=== PATIENT | male | born 1960 | race Caucasian/White ===

== ENCOUNTER 2016-09-19 17:08 | Emergency (ER) | payer MEDICAID ==
[2016-09-19 17:21] VITALS: BP 179/114
--- NOTE | 2016-09-19 17:51 | EDM.PDOC ---
ED HPI GENERAL MEDICAL PROBLEM - General Chief Complaint: ENT Problem Stated Complaint: SINUS INFECTION Time Seen by Provider: 09/19/16 17:41 - History of Present Illness INITIAL COMMENTS - FREE TEXT/NARRATIVE: History of present illness: [56-year-old male presenting with complaints of sinus infection. Patient states he is a chronic issue of sinus infections and he feels that he is beginning to have one involved] Review of systems: As per history of present illness and below otherwise all systems reviewed and negative. Past medical history: As per history of present illness and as reviewed below otherwise noncontributory. Surgical history: As per history of present illness and as reviewed below otherwise noncontributory. Social history: No reported history of drug or alcohol abuse. Family history: As per history of present illness and as reviewed below otherwise noncontributory. Physical exam: HEENT: Atraumatic, normocephalic, pupils reactive, negative for conjunctival pallor or scleral icterus, mucous membranes moist, point tenderness at frontal and maxillary sinuses, throat clear, neck supple, nontender, trachea midline. Lungs: Clear to auscultation, breath sounds equal bilaterally, chest nontender. Heart: S1S2, regular, negative for clicks, rubs, or JVD. Abdomen: Soft, nondistended, nontender. Negative for masses or hepatosplenomegaly. Negative for costovertebral tenderness. Pelvis: Stable nontender. Genitourinary: Deferred. Rectal: Deferred. Extremities: Atraumatic, negative for cords or calf pain. Neurovascular unremarkable. Neuro: Awake, alert, oriented. Cranial nerves II through XII unremarkable. Cerebellum unremarkable. Motor and sensory unremarkable throughout. Exam nonfocal. Global assessment, benign save subjective complaint as noted above as well as some statements of discolored mucus discharge Diagnostics: [] Therapeutics: [] Impression: [Sinus infection] Plan: [Antibiotic] Definitive disposition and diagnosis as appropriate pending reevaluation and review of above. Headache Pain Score (Numeric/FACES): 5 - Related Data Allergies Allergy/AdvReac Type Severity Reaction Status Date / Time No Known Allergies Allergy Verified 09/19/16 17:21 Home Meds: Home Meds Omeprazole Magnesium [Prilosec Otc] 20 mg PO DAILY 09/19/16 [History] Past Medical History - Past Health History Medical/Surgical History: Denies Medical/Surgical History HEENT History: Reports: None Cardiovascular History: Reports: Hypertension Respiratory History: Reports: None Gastrointestinal History: Reports: GERD Other Gastrointestinal History: hernia ( patient refuse to elaborate ) Genitourinary History: Reports: None Musculoskeletal History: Reports: None Neurological History: Reports: Seizure Psychiatric History: Reports: Suicidal Ideation Endocrine/Metabolic History: Reports: None Hematologic History: Reports: None Immunologic History: Reports: None Oncologic (Cancer) History: Reports: None Dermatologic History: Reports: None - Infectious Disease History Infectious Disease History: Reports: Chicken Pox - Past Surgical History Head Surgeries/Procedures: Reports: None HEENT Surgical History: Reports: None Cardiovascular Surgical History: Reports: None Respiratory Surgical History: Reports: None Male Surgical History: Reports: None Neurological Surgical History: Reports: None Musculoskeletal Surgical History: Reports: None Oncologic Surgical History: Reports: None Dermatological Surgical History: Reports: None Social & Family History - Family History Family Medical History: Noncontributory - Tobacco Use Smoking Status *Q: Current Every Day Smoker Years of Tobacco use: 30 Packs/Tins Daily: 1 Second Hand Smoke Exposure: No - Caffeine Use Caffeine Use: Reports: None - Alcohol Use Days Per Week of Alcohol Use: 1 Number of Drinks Per Day: 2 Total Drinks Per Week: 2 - Recreational Drug Use Recreational Drug Use: No ED ROS ENT - Review of Systems Review Of Systems: See Below (History of present illness) ED EXAM, ENT - Physical Exam Exam: See Below (History of present illness) Course - Vital Signs Last Recorded V/S: Last Vital Signs Temp 37.1 C 09/19/16 17:16 Pulse 83 09/19/16 17:16 Resp 18 09/19/16 17:16 BP 179/114 H 09/19/16 17:16 Pulse Ox 97 09/19/16 17:16 Departure - Departure Time of Disposition: 17:56 Disposition: Home, Self-Care 01 Condition: good Clinical Impression: Sinusitis - Discharge Information Forms: ED Department Discharge Additional Instructions: The following information is given to patients seen in the emergency department who are being discharged to home. This information is to outline your options for follow-up care. We provide all patients seen in our emergency department with a follow-up referral. The need for follow-up, as well as the timing and circumstances, are variable depending upon the specifics of your emergency department visit. If you don't have a primary care physician on staff, we will provide you with a referral. We always advise you to contact your personal physician following an emergency department visit to inform them of the circumstance of the visit and for follow-up with them and/or the need for any referrals to a consulting specialist. The emergency department will also refer you to a specialist when appropriate. This referral assures that you have the opportunity for follow-up care with a specialist. All of these measure are taken in an effort to provide you with optimal care, which includes your follow-up. Under all circumstances we always encourage you to contact your private physician who remains a resource for coordinating your care. When calling for follow-up care, please make the office aware that this follow-up is from your recent emergency room visit. If for any reason you are refused follow-up, please contact the [facility] Emergency Department at and asked to speak to the emergency department charge nurse. Take medication as directed Followup with PCP in one to 2 days Return to ED as needed as
== END 2016-09-19 18:07 | disposition home or self-care (01) ==
LOC: MW.ED 17:08
DX: J32.9 Chronic sinusitis, unspecified (principal); I10 Essential (primary) hypertension; K21.9 Gastro-esophageal reflux disease without esophagitis; F17.210 Nicotine dependence, cigarettes, uncomplicated
CPT/HCPCS: 99282; 99283

== ENCOUNTER 2016-10-25 19:07 | Emergency (ER) | payer MEDICAID ==
--- NOTE | 2016-10-25 19:46 | EDM.PDOC ---
ED HPI GENERAL MEDICAL PROBLEM - General Chief Complaint: Behavioral/Psych Stated Complaint: MENTAL ISSUES Time Seen by Provider: 10/25/16 19:40 - History of Present Illness INITIAL COMMENTS - FREE TEXT/NARRATIVE: HISTORY AND PHYSICAL: History of present illness: Patient 36-year-old male with a history of grief reaction depressive episodes and presents here after having called police regarding him feeling depressed and transported patient had expressed suicidal ideations without plan patient states that that is not the case and he has no intention of suicide he states he was feeling depressed and anxious with wanted to just talk to somebody. Is not interested in any inpatient therapy and remains adamant that he does not hurt himself or anybody else. He states he has other responsibilities including taking care of property andtenants Review of systems: As per history of present illness and below otherwise all systems reviewed and negative. Past medical history: As per history of present illness and as reviewed below otherwise noncontributory. Surgical history: As per history of present illness and as reviewed below otherwise noncontributory. Social history: No reported history of drug or alcohol abuse. Family history: As per history of present illness and as reviewed below otherwise noncontributory. Physical exam: HEENT: Atraumatic, normocephalic, pupils reactive, negative for conjunctival pallor or scleral icterus, mucous membranes moist, throat clear, neck supple, nontender, trachea midline. Lungs: Clear to auscultation, breath sounds equal bilaterally, chest nontender. Heart: S1S2, regular, negative for clicks, rubs, or JVD. Abdomen: Soft, nondistended, nontender. Negative for masses or hepatosplenomegaly. Negative for costovertebral tenderness. Pelvis: Stable nontender. Genitourinary: Deferred. Rectal: Deferred. Extremities: Atraumatic, negative for cords or calf pain. Neurovascular unremarkable. Neuro: Awake, alert, oriented. Cranial nerves II through XII unremarkable. Cerebellum unremarkable. Motor and sensory unremarkable throughout. Exam nonfocal. Diagnostics: None Therapeutics: None Impression: #1 depressive episode Definitive disposition and diagnosis as appropriate pending reevaluation and review of above. Right Lower Abdomen Pain Score (Numeric/FACES): 8 - Related Data Allergies Allergy/AdvReac Type Severity Reaction Status Date / Time dust Allergy Sneezing Uncoded 10/25/16 19:32 Home Meds: Home Meds Omeprazole Magnesium [Prilosec Otc] 20 mg PO DAILY 09/19/16 [History] Past Medical History - Past Health History Medical/Surgical History: Denies Medical/Surgical History HEENT History: Reports: None Cardiovascular History: Reports: Hypertension Respiratory History: Reports: None Gastrointestinal History: Reports: GERD Other Gastrointestinal History: hernia Genitourinary History: Reports: None Musculoskeletal History: Reports: None Neurological History: Reports: Seizure Psychiatric History: Reports: Suicidal Ideation Endocrine/Metabolic History: Reports: None Hematologic History: Reports: None Immunologic History: Reports: None Oncologic (Cancer) History: Reports: None Dermatologic History: Reports: None - Infectious Disease History Infectious Disease History: Reports: Chicken Pox - Past Surgical History Head Surgeries/Procedures: Reports: None HEENT Surgical History: Reports: None Cardiovascular Surgical History: Reports: None Respiratory Surgical History: Reports: None GI Surgical History: Reports: None Male Surgical History: Reports: None Neurological Surgical History: Reports: None Musculoskeletal Surgical History: Reports: None Oncologic Surgical History: Reports: None Dermatological Surgical History: Reports: None Social & Family History - Family History Family Medical History: Noncontributory - Tobacco Use Smoking Status *Q: Current Every Day Smoker Years of Tobacco use: 30 Packs/Tins Daily: 1 Second Hand Smoke Exposure: No - Caffeine Use Caffeine Use: Reports: Energy Drinks, Soda Caffeine Use Comment: 1 drink each/day - Alcohol Use Days Per Week of Alcohol Use: 3 Number of Drinks Per Day: 2 Total Drinks Per Week: 6 - Recreational Drug Use Recreational Drug Use: No ED ROS GENERAL - Review of Systems Review Of Systems: ROS reveals no pertinent complaints other than HPI. ED EXAM, GENERAL - Physical Exam Exam: See Below (See dictation) Course - Vital Signs Last Recorded V/S: Last Vital Signs Temp 36.8 C 10/25/16 19:27 Pulse 126 H 10/25/16 19:27 Resp 20 10/25/16 19:27 BP Pulse Ox 93 L 10/25/16 19:27 Departure - Departure Time of Disposition: 19:45 Disposition: Home, Self-Care 01 Condition: Good Clinical Impression: Depressive episode - Discharge Information Forms: ED Department Discharge Additional Instructions: The following information is given to patients seen in the emergency department who are being discharged to home. This information is to outline your options for follow-up care. We provide all patients seen in our emergency department with a follow-up referral. The need for follow-up, as well as the timing and circumstances, are variable depending upon the specifics of your emergency department visit. If you don't have a primary care physician on staff, we will provide you with a referral. We always advise you to contact your personal physician following an emergency department visit to inform them of the circumstance of the visit and for follow-up with them and/or the need for any referrals to a consulting specialist. The emergency department will also refer you to a specialist when appropriate. This referral assures that you have the opportunity for followup care with a specialist. All of these measure are taken in an effort to provide you with optimal care, which includes your followup. Under all circumstances we always encourage you to contact your private physician who remains a resource for coordinating your care. When calling for followup care, please make the office aware that this follow-up is from your recent emergency room visit. If for any reason you are refused follow-up, please contact the [facility] emergency department at and asked to speak to the emergency department charge nurse. Follow-up primary medical doctor wanted today's return as needed as discussed
[2016-10-25 21:08] VITALS: BP 139/86
== END 2016-10-25 20:00 | disposition home or self-care (01) ==
LOC: MW.ED 19:07
DX: F32.9 Major depressive disorder, single episode, unspecified (principal); I10 Essential (primary) hypertension; K21.9 Gastro-esophageal reflux disease without esophagitis; F17.210 Nicotine dependence, cigarettes, uncomplicated; Z79.899 Other long term (current) drug therapy
CPT/HCPCS: 99282; 99283

== ENCOUNTER 2016-11-12 17:43 | Emergency (ER) | payer MEDICAID ==
[2016-11-12] MEDS ORDERED: Nitroglycerin 0.4 MG Tab.SL SL ONE (18:00)
[2016-11-12] MEDS ORDERED: Ketorolac 30 MG/ML SDV IVPUSH ONE (18:00)
[2016-11-12] MEDS ORDERED: Famotidine 20 MG/2 ML SDV IVPUSH ONE (18:00)
[2016-11-12] MEDS ORDERED: Sodium Chloride 0.9% 1,000 ML IV ONE (18:00)
[2016-11-12] MEDS ORDERED: LORazepam 2 MG/ML MDV IVPUSH ONE (18:01)
--- NOTE | 2016-11-12 18:23 | EDM.PDOC ---
ED HPI GENERAL MEDICAL PROBLEM - General Chief Complaint: Behavioral/Psych Stated Complaint: DETOX Time Seen by Provider: 11/12/16 18:05 Source of Information: Reports: Patient, Police History Limitations: Reports: No Limitations - History of Present Illness INITIAL COMMENTS - FREE TEXT/NARRATIVE: History of present illness: [56-year-old male brought in by law-enforcement secondary to intoxication. Upon arrival patient is noted to be hypertensive and having low saturations.] Review of systems: As per history of present illness and below otherwise all systems reviewed and negative. Past medical history: As per history of present illness and as reviewed below otherwise noncontributory. Surgical history: As per history of present illness and as reviewed below otherwise noncontributory. Social history: No reported history of drug or alcohol abuse. Family history: As per history of present illness and as reviewed below otherwise noncontributory. Physical exam: HEENT: Atraumatic, normocephalic, pupils reactive, negative for conjunctival pallor or scleral icterus, mucous membranes moist, throat clear, neck supple, nontender, trachea midline. Lungs: Clear to auscultation, breath sounds equal bilaterally, chest nontender. Heart: S1S2, regular, negative for clicks, rubs, or JVD. Abdomen: Soft, nondistended, nontender. Negative for masses or hepatosplenomegaly. Negative for costovertebral tenderness. Pelvis: Stable nontender. Genitourinary: Deferred. Rectal: Deferred. Extremities: Atraumatic, negative for cords or calf pain. Neurovascular unremarkable. Neuro: Awake, alert, intoxicated. Unable to fully assess cranial nerves the patient is able to get up out of the bed and ambulate unassisted even if in a awkward manner secondary to level of intoxication. Diagnostics: [Chest x-ray CBC, CMP] Therapeutics: [Ativan] Impression: [Agitated, alcohol abuse] Plan: [Turned over to police] Definitive disposition and diagnosis as appropriate pending reevaluation and review of above. - Related Data Allergies Allergy/AdvReac Type Severity Reaction Status Date / Time dust Allergy Sneezing Uncoded 11/12/16 18:01 Home Meds: Home Meds Omeprazole Magnesium [Prilosec Otc] 20 mg PO DAILY 09/19/16 [History] Past Medical History - Past Health History Medical/Surgical History: Denies Medical/Surgical History HEENT History: Reports: None Cardiovascular History: Reports: Hypertension Respiratory History: Reports: None Gastrointestinal History: Reports: GERD Other Gastrointestinal History: hernia Genitourinary History: Reports: None Musculoskeletal History: Reports: None Neurological History: Reports: Seizure Psychiatric History: Reports: Addiction, Depression, Suicidal Ideation Endocrine/Metabolic History: Reports: None Hematologic History: Reports: None Immunologic History: Reports: None Oncologic (Cancer) History: Reports: None Dermatologic History: Reports: None - Infectious Disease History Infectious Disease History: Reports: Chicken Pox - Past Surgical History Head Surgeries/Procedures: Reports: None HEENT Surgical History: Reports: None Cardiovascular Surgical History: Reports: None Respiratory Surgical History: Reports: None GI Surgical History: Reports: None Male Surgical History: Reports: None Neurological Surgical History: Reports: None Musculoskeletal Surgical History: Reports: None Oncologic Surgical History: Reports: None Dermatological Surgical History: Reports: None Social & Family History - Family History Family Medical History: Noncontributory - Tobacco Use Smoking Status *Q: Unknown Ever Smoked Years of Tobacco use: 30 Packs/Tins Daily: 1 Second Hand Smoke Exposure: No - Caffeine Use Caffeine Use: Reports: Energy Drinks, Soda Caffeine Use Comment: 1 drink each/day - Alcohol Use Days Per Week of Alcohol Use: 3 Number of Drinks Per Day: 2 Total Drinks Per Week: 6 - Recreational Drug Use Recreational Drug Use: No ED ROS GENERAL - Review of Systems Review Of Systems: See Below (See history of present illness) ED EXAM, GENERAL - Physical Exam Exam: See Below (See history of present illness) Course - Vital Signs Last Recorded V/S: Last Vital Signs Temp 36.4 C 11/12/16 18:02 Pulse 109 H 11/12/16 18:57 Resp 20 11/12/16 18:57 BP 149/91 H 11/12/16 18:57 Pulse Ox 94 L 11/12/16 18:57 - Orders/Labs/Meds Orders: Active Orders 24 hr Category Date Time Status Cardiac Monitoring [RC] . DIRECTED Care 11/12/16 18:00 Active EKG Documentation Completion [RC] STAT Care 11/12/16 18:00 Active Chest 2V [CR] Stat Exams 11/12/16 18:00 Taken Labs: Laboratory Tests 11/12/16 11/12/16 11/12/16 Range/Units 18:04 18:04 18:04 WBC 8.69 (4.0-11.0) K/uL RBC 5.32 (4.50-5.90) M/uL Hgb 14.4 (13.0-17.0) g/dL Hct 42.9 (38.0-50.0) % MCV 80.6 (80.0-98.0) fL MCH 27.1 (27.0-32.0) pg MCHC 33.6 (31.0-37.0) g/dL RDW Std Deviation 47.5 (28.0-62.0) fl RDW Coeff of Adonay 16 H (11.0-15.0) % Plt Count 348 (150-400) K/uL MPV 9.30 (7.40-12.00) fL Neut % (Auto) 52.5 (48.0-80.0) % Lymph % (Auto) 41.3 H (16.0-40.0) % Louisa % (Auto) 4.8 (0.0-15.0) % Eos % (Auto) 0.8 (0.0-7.0) % Baso % (Auto) 0.6 (0.0-1.5) % Neut # (Auto) 4.6 (1.4-5.7) K/uL Lymph # (Auto) 3.6 H (0.6-2.4) K/uL Louisa # (Auto) 0.4 (0.0-0.8) K/uL Eos # (Auto) 0.1 (0.0-0.7) K/uL Baso # (Auto) 0.1 (0.0-0.1) K/uL Nucleated RBC % 0.0 /100WBC Nucleated RBCs # 0 K/uL Sodium 140 (136-146) mmol/L Potassium 4.6 (3.5-5.1) mmol/L Chloride 107 (98-110) mmol/L Carbon Dioxide 21 (21-31) mmol/L BUN 9 (6.0-23.0) mg/dL Creatinine 0.8 (0.6-1.5) mg/dL Est Cr Clr Drug Dosing 112.43 mL/min Estimated GFR (MDRD) > 60.0 ml/min Glucose 95 (60-110) mg/dL Calcium 8.6 L (8.8-10.8) mg/dL Total Bilirubin 0.2 (0.1-1.5) mg/dL AST 30 (5-40) IU/L ALT 14 (8-54) IU/L Alkaline Phosphatase 75 (40-150) Troponin I < 0.10 (0.0-0.29) NG/ML Total Protein 7.3 (6.0-8.0) g/dL Albumin 4.1 (3.5-5.0) g/dL Globulin 3.2 (2.0-3.5) g/dL Albumin/Globulin Ratio 1.3 (1.3-2.8) Amylase 65 (10-90) U/L Lipase 87 H (7-80) U/L Meds: Medications Discontinued Medications Generic Name Dose Route Start Last Admin Trade Name Freq PRN Reason Stop Dose Admin Famotidine 20 mg 11/12/16 18:00 11/12/16 18:14 Pepcid IVPUSH 11/12/16 18:01 20 mg ONETIME ONE Administration Sodium Chloride 1,000 mls @ 999 mls/hr 11/12/16 18:00 11/12/16 18:14 Normal Saline IV 11/12/16 19:00 999 mls/hr STAT ONE Administration Ketorolac Tromethamine 30 mg 11/12/16 18:00 11/12/16 18:14 Toradol IVPUSH 11/12/16 18:01 30 mg ONETIME ONE Administration Lorazepam 2 mg 11/12/16 18:01 11/12/16 18:14 Ativan IVPUSH 11/12/16 18:02 2 mg ONETIME ONE Administration Nitroglycerin 0.4 mg 11/12/16 18:00 Nitrostat SL 11/12/16 18:01 ONETIME ONE Departure - Departure Time of Disposition: 19:09 Disposition: Home, Self-Care 01 Condition: Good Clinical Impression: Alcohol intoxication Qualifiers: Complication of substance-induced condition: uncomplicated Qualified Code(s): F10.120 - Alcohol abuse with intoxication, uncomplicated - Discharge Information Forms: ED Department Discharge Additional Instructions: The following information is given to patients seen in the emergency department who are being discharged to home. This information is to outline your options for follow-up care. We provide all patients seen in our emergency department with a follow-up referral. The need for follow-up, as well as the timing and circumstances, are variable depending upon the specifics of your emergency department visit. If you don't have a primary care physician on staff, we will provide you with a referral. We always advise you to contact your personal physician following an emergency department visit to inform them of the circumstance of the visit and for follow-up with them and/or the need for any referrals to a consulting specialist. The emergency department will also refer you to a specialist when appropriate. This referral assures that you have the opportunity for follow-up care with a specialist. All of these measure are taken in an effort to provide you with optimal care, which includes your follow-up. Under all circumstances we always encourage you to contact your private physician who remains a resource for coordinating your care. When calling for follow-up care, please make the office aware that this follow-up is from your recent emergency room visit. If for any reason you are refused follow-up, please contact the [facility] Emergency Department at and asked to speak to the emergency department charge nurse. Cleared for custody - My Orders Last 24 Hours: My Active Orders 11/12/16 18:00 Cardiac Monitoring [RC] . DIRECTED EKG Documentation Completion [RC] STAT Chest 2V [CR] Stat - Assessment/Plan Last 24 Hours: My Active Orders 11/12/16 18:00 Cardiac Monitoring [RC] . DIRECTED EKG Documentation Completion [RC] STAT Chest 2V [CR] Stat
[2016-11-12 18:39] LABS: CHLORIDE,CL 107 mmol/L (98-110); SODIUM,NA 140 mmol/L (136-146)
[2016-11-12 18:57] VITALS: BP 149/91
--- NOTE | 2016-11-15 09:50 | CR ---
EXAM DATE: 11/12/16 PATIENT'S AGE: 56 Patient: MEG ADAIR Facility: [place], [place] Site . Site : [id number] Study: XRay Chest [id number]/14/2017 6:48:42 PM Ordering Physician: Doctor Hoover Final Report: INDICATION: hypoxia TECHNIQUE: Chest radiograph 2 views on 3 films COMPARISON: None FINDINGS: Cardiovascular and mediastinum: The cardiac silhouette is normal in appearance and size. Mediastinum is within normal limits. Lungs and pleural spaces: Both lungs are unremarkable in appearance. No sign of pleural effusion. No pneumothorax is seen. Bones and soft tissues: No significant findings. IMPRESSION: 1. No acute cardiopulmonary disease seen. Dictated by: Stewart Morales MD @ 11/12/2016 18:54:38 (Electronic Signature) Report Signed by Proxy. [facility] CENTERMadelyn
== END 2016-11-12 19:17 | disposition home or self-care (01) ==
LOC: MW.ED 17:43
DX: F10.120 Alcohol abuse with intoxication, uncomplicated (principal); I10 Essential (primary) hypertension; K21.9 Gastro-esophageal reflux disease without esophagitis; Z79.899 Other long term (current) drug therapy; Z91.09 Other allergy status, other than to drugs and biological substances
CPT/HCPCS: 36415; 71020; 80053; 82150; 83690; 84484; 85025; 93005; 96361; 96374; 96375; 99285; J1885; J2060; J7040; 99284

== ENCOUNTER 2016-11-13 19:30 | Emergency (ER) | payer MEDICAID ==
[2016-11-13] MEDS ORDERED: Albuterol/Ipratropium 3.0-0.5 MG/3 ML Neb Soln NEB ONE (20:07)
--- NOTE | 2016-11-13 20:20 | EDM.PDOC ---
ED HPI GENERAL MEDICAL PROBLEM - General Chief Complaint: Behavioral/Psych Stated Complaint: MENTAL HEALTH/ BEHAVIOR Time Seen by Provider: 11/13/16 19:33 - History of Present Illness INITIAL COMMENTS - FREE TEXT/NARRATIVE: HISTORY AND PHYSICAL: History of present illness: Patient is a 56-year-old male with a long-standing history of tobacco and alcohol abuse who reports with police stating that he wants help for his alcoholism. Initially when he called the police he made some comments regarding being depressed and there was some concern about that on my inquiry with him here he does not have a specific plan and he states that he is very concerned about COPD as his grandfather of this and he also is concerned about his sinuses for which she would like a referral for ENT. The patient states he drinks on a daily basis and did drink today and he was seen here yesterday in the ED and had labs and a chest x-ray performed. Those have been reviewed by me. He currently asks for a nebulizer treatment here which I will give him. He was also seen in the emergency department on October 25 for similar presentation as today and was given referral information which he has not done anything with. When I asked him if he would like help for his alcoholism and his alleged depression he says that he does want help but he doesn't have any active plans to pursue that and would like assistance. He asked me if I would call [facility] to see if he can get into their treatment program which I told him I could not do. The patient currently denies any systemic planes of chest pain shortness of breath abdominal pain nausea vomiting diarrhea or neurovascular changes. He has not had any trauma recently. The patient repeatedly talks about his concerns for the future regarding his alcohol use and his blood pressure and pulmonary status and gives no indication of suicide thoughts or plans. Review of systems: As per history of present illness and below otherwise all systems reviewed and negative. Past medical history: As per history of present illness and as reviewed below otherwise noncontributory. Surgical history: As per history of present illness and as reviewed below otherwise noncontributory. Social history: No reported history of drug or alcohol abuse. Family history: As per history of present illness and as reviewed below otherwise noncontributory. Physical exam: Gen.: Well-developed well-nourished man who is nontoxic and speaking clearly in the ED. Vital signs of the note by me. He moves easily without assistance. HEENT: Atraumatic, normocephalic, pupils reactive, negative for conjunctival pallor or scleral icterus, mucous membranes moist, throat clear, neck supple, nontender, trachea midline. Lungs: Clear to auscultation with some scattered expiratory wheezing but no worker breathing or sensory muscle use, breath sounds equal bilaterally, chest nontender. Heart: S1S2, regular, negative for clicks, rubs, or JVD. Abdomen: Soft, nondistended, nontender. Negative for masses or hepatosplenomegaly. Negative for costovertebral tenderness. Pelvis: Stable nontender. Genitourinary: Deferred. Rectal: Deferred. Extremities: Atraumatic, negative for cords or calf pain. Neurovascular unremarkable. Full range of motion without any defects or deficits Neuro: Awake, alert, oriented. Cranial nerves II through XII unremarkable. Cerebellum unremarkable. Motor and sensory unremarkable throughout. Exam nonfocal. Diagnostics: [employer]: [place] I did discuss availability of beds in [facility]U with Dr. Cullen at 20 12 PM. He states that there are beds available and that if the patient would like to come to the ED electively and he could be assessed for admission to the unit. I did discuss this conversation with the patient and told him that if he did get a ride to [place] that he could electively pursue admission to this unit for problems with his alcohol abuse which he would like to do. He currently is not suicidal and does not need inpatient committal to the psychiatric unit but help with his chemical dependency so I will give him the information to pursue that as he chooses. According to the police his was contacted and will come to the ED and perhaps help him get to [place]. Impression: Alcoholism depressive episode stable Definitive disposition and diagnosis as appropriate pending reevaluation and review of above. leg Pain Score (Numeric/FACES): 10 - Related Data Allergies Allergy/AdvReac Type Severity Reaction Status Date / Time dust Allergy Sneezing Uncoded 11/12/16 18:01 Home Meds: Home Meds ARIPiprazole [Abilify] 5 mg PO DAILY 11/12/16 [History] Hydrochlorothiazide 25 mg PO DAILY 11/12/16 [History] Lisinopril 40 mg PO DAILY 11/12/16 [History] Mirtazapine 15 mg PO BEDTIME 11/12/16 [History] Pantoprazole [ProTONIX] 40 mg PO ACBREAKFAST 11/12/16 [History] Past Medical History - Past Health History Medical/Surgical History: Denies Medical/Surgical History HEENT History: Reports: None Cardiovascular History: Reports: Hypertension Respiratory History: Reports: None Gastrointestinal History: Reports: GERD Other Gastrointestinal History: hernia Genitourinary History: Reports: None Musculoskeletal History: Reports: None Neurological History: Reports: Seizure Psychiatric History: Reports: Addiction, Depression, Suicidal Ideation Endocrine/Metabolic History: Reports: None Hematologic History: Reports: None Immunologic History: Reports: None Oncologic (Cancer) History: Reports: None Dermatologic History: Reports: None - Infectious Disease History Infectious Disease History: Reports: Chicken Pox - Past Surgical History Head Surgeries/Procedures: Reports: None HEENT Surgical History: Reports: None Cardiovascular Surgical History: Reports: None Respiratory Surgical History: Reports: None GI Surgical History: Reports: None Male Surgical History: Reports: None Neurological Surgical History: Reports: None Musculoskeletal Surgical History: Reports: None Oncologic Surgical History: Reports: None Dermatological Surgical History: Reports: None Social & Family History - Family History Family Medical History: Noncontributory - Tobacco Use Smoking Status *Q: Unknown Ever Smoked Years of Tobacco use: 30 Packs/Tins Daily: 1 Second Hand Smoke Exposure: No - Caffeine Use Caffeine Use: Reports: Energy Drinks, Soda Caffeine Use Comment: 1 drink each/day - Alcohol Use Days Per Week of Alcohol Use: 3 Number of Drinks Per Day: 2 Total Drinks Per Week: 6 - Recreational Drug Use Recreational Drug Use: No ED ROS GENERAL - Review of Systems Review Of Systems: ROS reveals no pertinent complaints other than HPI. ED EXAM, GENERAL - Physical Exam Exam: See Below (See dictation) Course - Vital Signs Last Recorded V/S: Last Vital Signs Temp 36.2 C 11/13/16 19:36 Pulse 93 11/13/16 19:36 Resp 16 11/13/16 19:36 BP 148/92 H 11/13/16 19:36 Pulse Ox 98 11/13/16 19:36 - Orders/Labs/Meds Orders: Active Orders 24 hr Category Date Time Status Blood Glucose Check, Bedside [RC] ONETIME Care 11/13/16 20:08 Ordered RT Aerosol Therapy [RC] ASDIRECTED Care 11/13/16 20:07 Ordered Albuterol/Ipratropium [DuoNeb 3.0-0.5 MG/3 ML] Med 11/13/16 20:07 Once 3 ml NEB ONETIME ONE Medication Orders Albuterol/Ipratropium (Duoneb 3.0-0.5 Mg/3 Ml) 3 ml NEB ONETIME ONE Stop: 11/13/16 20:08 Meds: Medications Generic Name Dose Route Start Last Admin Trade Name Marycarmen PRN Reason Stop Dose Admin Albuterol/Ipratropium 3 ml 11/13/16 20:07 Duoneb 3.0-0.5 Mg/3 Ml NEB 11/13/16 20:08 ONETIME ONE Departure - Departure Time of Disposition: 20:20 Disposition: Home, Self-Care 01 Condition: Good Clinical Impression: Alcohol abuse, Depressive disorder - Discharge Information Forms: ED Department Discharge Additional Instructions: The following information is given to patients seen in the emergency department who are being discharged to home. This information is to outline your options for follow-up care. We provide all patients seen in our emergency department with a follow-up referral. The need for follow-up, as well as the timing and circumstances, are variable depending upon the specifics of your emergency department visit. If you don't have a primary care physician on staff, we will provide you with a referral. We always advise you to contact your personal physician following an emergency department visit to inform them of the circumstance of the visit and for follow-up with them and/or the need for any referrals to a consulting specialist. The emergency department will also refer you to a specialist when appropriate. This referral assures that you have the opportunity for followup care with a specialist. All of these measure are taken in an effort to provide you with optimal care, which includes your followup. Under all circumstances we always encourage you to contact your private physician who remains a resource for coordinating your care. When calling for followup care, please make the office aware that this follow-up is from your recent emergency room visit. If for any reason you are refused follow-up, please contact the [facility] emergency department at and ask to speak to the emergency department charge nurse. [facility] Primary care- Internal Medicine and Family [address] [place] [address] Please pursue primary care follow-u to address your concerns about your blood pressure and your pulmonary status. Return to ER as needed and as discussed. Please refrain from using alcohol and tobacco - My Orders Last 24 Hours: My Active Orders 11/13/16 20:07 RT Aerosol Therapy [RC] ASDIRECTED Albuterol/Ipratropium [DuoNeb 3.0-0.5 MG/3 ML] 3 ml NEB ONETIME ONE 11/13/16 20:08 Blood Glucose Check, Bedside [RC] ONETIME - Assessment/Plan Last 24 Hours: My Active Orders 11/13/16 20:07 RT Aerosol Therapy [RC] ASDIRECTED Albuterol/Ipratropium [DuoNeb 3.0-0.5 MG/3 ML] 3 ml NEB ONETIME ONE 11/13/16 20:08 Blood Glucose Check, Bedside [RC] ONETIME
[2016-11-13 21:10] VITALS: BP 116/65
== END 2016-11-13 20:40 | disposition home or self-care (01) ==
LOC: MW.ED 19:30
DX: F10.120 Alcohol abuse with intoxication, uncomplicated (principal); F32.9 Major depressive disorder, single episode, unspecified; I10 Essential (primary) hypertension; K21.9 Gastro-esophageal reflux disease without esophagitis; Z79.899 Other long term (current) drug therapy; Z91.048 Other nonmedicinal substance allergy status
CPT/HCPCS: 82962; 94664; 99285; 99285-25

== ENCOUNTER 2017-02-20 13:15 | Emergency (ER) | payer MEDICAID ==
--- NOTE | 2017-02-20 13:59 | EDM.PDOC ---
ED HPI GENERAL MEDICAL PROBLEM - General Chief Complaint: ENT Problem Stated Complaint: SICK Time Seen by Provider: 02/20/17 13:54 Source of Information: Reports: Patient History Limitations: Reports: No Limitations - History of Present Illness INITIAL COMMENTS - FREE TEXT/NARRATIVE: History of present illness: [56-year-old male presenting with complaints of sinusitis. Patient says he has chronic issues with that and he gets to feeling quite ill and he's come in today for evaluation and prescription antibiotics.] Review of systems: As per history of present illness and below otherwise all systems reviewed and negative. Past medical history: As per history of present illness and as reviewed below otherwise noncontributory. Surgical history: As per history of present illness and as reviewed below otherwise noncontributory. Social history: No reported history of drug or alcohol abuse. Family history: As per history of present illness and as reviewed below otherwise noncontributory. Physical exam: HEENT: Atraumatic, normocephalic, pupils reactive, negative for conjunctival pallor or scleral icterus, mucous membranes moist, with frontal and maxillary sinus tenderness on palpation, throat clear, neck supple, nontender, trachea midline. Lungs: Clear to auscultation, breath sounds equal bilaterally, chest nontender. Heart: S1S2, regular, negative for clicks, rubs, or JVD. Abdomen: Soft, nondistended, nontender. Negative for masses or hepatosplenomegaly. Negative for costovertebral tenderness. Pelvis: Stable nontender. Genitourinary: Deferred. Rectal: Deferred. Extremities: Atraumatic, negative for cords or calf pain. Neurovascular unremarkable. Neuro: Awake, alert, oriented. Cranial nerves II through XII unremarkable. Cerebellum unremarkable. Motor and sensory unremarkable throughout. Exam nonfocal. Diagnostics: [] Therapeutics: [] Impression: [#1 sinusitis] Plan: [Augmentin, Flonase] Definitive disposition and diagnosis as appropriate pending reevaluation and review of above. - Related Data Allergies Allergy/AdvReac Type Severity Reaction Status Date / Time dust Allergy Sneezing Uncoded 02/20/17 13:33 Home Meds: Home Meds ARIPiprazole [Abilify] 5 mg PO DAILY 11/12/16 [History] Hydrochlorothiazide 25 mg PO DAILY 11/12/16 [History] Lisinopril 40 mg PO DAILY 11/12/16 [History] Mirtazapine 15 mg PO BEDTIME 11/12/16 [History] Pantoprazole [ProTONIX] 40 mg PO ACBREAKFAST 11/12/16 [History] Amoxicillin/Potassium Clav [Augmentin 875-125 Tablet] 1 each PO BID #20 tablet 02/20/17 [Rx] Fluticasone Propionate [Flonase] 30 gm NASBOTH DAILY #1 bottle 02/20/17 [Rx] Past Medical History - Past Health History Medical/Surgical History: Denies Medical/Surgical History HEENT History: Reports: None Cardiovascular History: Reports: Hypertension Respiratory History: Reports: None Gastrointestinal History: Reports: GERD Other Gastrointestinal History: hernia Genitourinary History: Reports: None Musculoskeletal History: Reports: None Neurological History: Reports: Seizure Psychiatric History: Reports: Addiction, Depression, Suicidal Ideation Endocrine/Metabolic History: Reports: None Hematologic History: Reports: None Immunologic History: Reports: None Oncologic (Cancer) History: Reports: None Dermatologic History: Reports: None - Infectious Disease History Infectious Disease History: Reports: Chicken Pox - Past Surgical History Head Surgeries/Procedures: Reports: None HEENT Surgical History: Reports: None Cardiovascular Surgical History: Reports: None Respiratory Surgical History: Reports: None GI Surgical History: Reports: None Male Surgical History: Reports: None Neurological Surgical History: Reports: None Musculoskeletal Surgical History: Reports: None Oncologic Surgical History: Reports: None Dermatological Surgical History: Reports: None Social & Family History - Family History Family Medical History: Noncontributory - Tobacco Use Smoking Status *Q: Unknown Ever Smoked Years of Tobacco use: 30 Packs/Tins Daily: 1 Second Hand Smoke Exposure: No - Caffeine Use Caffeine Use: Reports: Energy Drinks, Soda Caffeine Use Comment: 1 drink each/day - Alcohol Use Days Per Week of Alcohol Use: 3 Number of Drinks Per Day: 2 Total Drinks Per Week: 6 - Recreational Drug Use Recreational Drug Use: No ED ROS GENERAL - Review of Systems Review Of Systems: See Below (History of present illness) ED EXAM, GENERAL - Physical Exam Exam: See Below (History of present illness) Departure - Departure Time of Disposition: 13:57 Disposition: Home, Self-Care 01 Condition: Good Clinical Impression: Sinusitis - Discharge Information Referrals: Dontae Quintana MD [Primary Care Provider] - Additional Instructions: The following information is given to patients seen in the emergency department who are being discharged to home. This information is to outline your options for follow-up care. We provide all patients seen in our emergency department with a follow-up referral. The need for follow-up, as well as the timing and circumstances, are variable depending upon the specifics of your emergency department visit. If you don't have a primary care physician on staff, we will provide you with a referral. We always advise you to contact your personal physician following an emergency department visit to inform them of the circumstance of the visit and for follow-up with them and/or the need for any referrals to a consulting specialist. The emergency department will also refer you to a specialist when appropriate. This referral assures that you have the opportunity for follow-up care with a specialist. All of these measure are taken in an effort to provide you with optimal care, which includes your follow-up. Under all circumstances we always encourage you to contact your private physician who remains a resource for coordinating your care. When calling for follow-up care, please make the office aware that this follow-up is from your recent emergency room visit. If for any reason you are refused follow-up, please contact the [facility] Emergency Department at and asked to speak to the emergency department charge nurse. Take medication as directed Follow-up with PCP 1-2 days Return to ED as needed as discussed
[2017-02-20 14:32] VITALS: BP 115/76
== END 2017-02-20 14:27 | disposition home or self-care (01) ==
LOC: MW.ED 13:15
DX: J32.9 Chronic sinusitis, unspecified (principal); I10 Essential (primary) hypertension
CPT/HCPCS: 99282

== ENCOUNTER 2017-05-23 06:44 | Day surgery (SDC) | payer MEDICAID ==
[~2017-05-23 06:44] MED LIST: Lactated Ringers 1,000 ML IV SCH; cefOXitin 2 GM in Premix Bag 1 BAG IV ONE
--- NOTE | 2017-05-23 07:03 | PCM.PREANE ---
Preanesthetic Assessment - Anesthesia/Transfusion/Family Hx Anesthesia History: Prior Anesthesia Without Reaction Family History of Anesthesia Reaction: No Transfusion History: No Prior Transfusion(s) - Review of Systems General: No Symptoms Pulmonary: No Symptoms Cardiovascular: No Symptoms Neurological: No Symptoms Other: Reports: None - Physical Assessment NPO Status Date: 05/22/17 Height: 1.8 m Weight: 81.647 kg ASA Class: 3 Mental Status: Alert & Oriented x3 Airway Class: Mallampati = 2 Dentition: Reports: Broken Tooth/Teeth ROM/Head Extension: Full Lungs: Clear to Auscultation, Normal Respiratory Effort Cardiovascular: Regular Rate, Regular Rhythm - Allergies Allergies/Adverse Reactions: Allergies Allergy/AdvReac Type Severity Reaction Status Date / Time dust Allergy Sneezing Uncoded 02/20/17 13:33 - Anesthesia Plan Pre-Op Medication Ordered: None - Acknowledgements Anesthesia Type Planned: General Anesthesia Pt an Appropriate Candidate for the Planned Anesthesia: Yes Alternatives and Risks of Anesthesia Discussed w Pt/Guardian: Yes Pt/Guardian Understands and Agrees with Anesthesia Plan: Yes Additional Comments: PMH: laryngeal cancer, smoker htn, recent alcohol abuse, PLAN: GET, will start NS instead of LR because of mild hyprbatremia, hypochloremia on May 11. Creat=1.0 PreAnesthesia Questionnaire - Past Health History Medical/Surgical History: Denies Medical/Surgical History HEENT History: Reports: None Cardiovascular History: Reports: Hypertension Respiratory History: Reports: None Gastrointestinal History: Reports: GERD Other Gastrointestinal History: hernia Genitourinary History: Reports: None Musculoskeletal History: Reports: Fracture Other Musculoskeletal History: right leg Neurological History: Reports: Seizure Psychiatric History: Reports: Addiction, Depression, Suicidal Ideation Endocrine/Metabolic History: Reports: None Hematologic History: Reports: None Immunologic History: Reports: None Oncologic (Cancer) History: Reports: Squamous Cell Carcinoma Other Oncologic History: left hypopharynx Dermatologic History: Reports: None - Infectious Disease History Infectious Disease History: Reports: Chicken Pox - Past Surgical History Head Surgeries/Procedures: Reports: None HEENT Surgical History: Reports: None Cardiovascular Surgical History: Reports: None Respiratory Surgical History: Reports: None GI Surgical History: Reports: Hernia, Inguinal Male Surgical History: Reports: None Neurological Surgical History: Reports: None Musculoskeletal Surgical History: Reports: ORIF Other Musculoskeletal Surgeries/Procedures:: ORIF right leg (has hardware) Oncologic Surgical History: Reports: None Dermatological Surgical History: Reports: None - SUBSTANCE USE Smoking Status *Q: Current Every Day Smoker Tobacco Use Within Last Twelve Months: Cigarettes Second Hand Smoke Exposure: No Days Per Week of Alcohol Use: 3 Number of Drinks Per Day: 2 Total Drinks Per Week: 6 Recreational Drug Use History: No - HOME MEDS Home Medications: Home Meds ARIPiprazole [Abilify] 5 mg PO DAILY 11/12/16 [History] Hydrochlorothiazide 25 mg PO DAILY 11/12/16 [History] Lisinopril 20 mg PO DAILY 11/12/16 [History] Mirtazapine 30 mg PO BEDTIME 11/12/16 [History] Pantoprazole [ProTONIX] 20 mg PO ACBREAKFAST 11/12/16 [History] Fluticasone Propionate [Flonase Allergy Relief] 1 spray NASBOTH ASDIRECTED PRN 04/29/17 [History] - CURRENT (IN HOUSE) MEDS Current Meds: Current Medications Lactated Ringer's (Ringers, Lactated) 1,000 mls @ 125 mls/hr IV ASDIRECTED NELIDA Discontinued Medications Cefoxitin Sodium 2 gm/ Premix 50 mls @ 100 mls/hr IV ONETIME ONE Stop: 05/23/17 06:29
[2017-05-23] MEDS ORDERED: Sodium Chloride 0.9% 1,000 ML IV SCH (07:15)
[2017-05-23] MEDS ORDERED: Bupivacaine 0.5% 30 ML SDV ONE (07:26)
[2017-05-23] MEDS ORDERED: fentaNYL 100 MCG/2 ML SDV ONE (07:33)
[2017-05-23] MEDS ORDERED: Propofol 200 MG/20 ML SDV ONE ×2 (07:33→07:34)
[2017-05-23] MEDS ORDERED: Lidocaine 4% Top Soln 50 ML Bottle ONE (07:33)
[2017-05-23] MEDS ORDERED: Midazolam 1 MG/ML 2 ML SDV ONE (07:33)
[2017-05-23] MEDS ORDERED: Ondansetron 4 MG/2 ML SDV ONE (07:33)
[2017-05-23] MEDS ORDERED: Succinylcholine/Normal Saline 200 MG/10 ML Syringe ONE (07:33)
[2017-05-23] MEDS ORDERED: Lidocaine 2% 5 ML SDV ONE (07:33)
[2017-05-23] MEDS ORDERED: Rocuronium 10 MG/ML 10 ML Syringe ONE (07:34)
[2017-05-23] MEDS ORDERED: Lidocaine 1% 20 ML MDV ONE (07:41)
[2017-05-23] MEDS ORDERED: Heparin Sodium 100 Units/ML 3 ML Syringe ONE ×2 (07:41→07:42)
[2017-05-23] MEDS ORDERED: ePHEDrine 50 MG/ML SDV ONE (08:17)
[2017-05-23] MEDS ORDERED: Dexamethasone 4 MG/ML 5 ML MDV ONE (08:34)
[2017-05-23] MEDS ORDERED: Sugammadex Sodium 200 MG/2 ML VIAL IM ONE (08:52)
[2017-05-23] MEDS ORDERED: Racepinephrine 2.25% 0.5 ML Neb Soln NEB ONE ×2 (09:41→10:00)
[2017-05-23] MEDS ORDERED: Acetaminophen/HYDROcodone 325-10 MG Tab PO PRN (09:48)
--- NOTE | 2017-05-23 09:52 | PCM.OPNOTE ---
- General Post-Op/Procedure Note Date of Surgery/Procedure: 05/23/17 Operative Procedure(s): Percutaneous endoscopic gastrostomy. Placement of Bard port for chemotherapy. 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
[2017-05-23] MEDS ORDERED: Lactated Ringers 1,000 ML IV SCH (10:00)
[2017-05-23] MEDS ORDERED: HYDROmorphone 2 MG/ML Syringe ONE (10:11)
[2017-05-23] MEDS ORDERED: HYDROmorphone 2 MG/ML SDV IVPUSH ONE (10:14)
--- NOTE | 2017-05-23 10:30 | PCM.POSTAN ---
POST ANESTHESIA ASSESSMENT - MENTAL STATUS Mental Status: Alert, Oriented - RESPIRATORY Respiratory Status: Respiratory Rate WNL, Airway Patent, O2 Saturation Stable - CARDIOVASCULAR CV Status: Pulse Rate WNL, Blood Pressure Stable - GASTROINTESTINAL GI Status: No Symptoms - POST OP HYDRATION Hydration Status: Adequate & Stable
--- NOTE | 2017-05-23 12:00 | PCM48HPAN ---
Post Anesthesia Note - EVALUATION WITHIN 48HRS OF ANESTHETIC Vital Signs in Normal Range: Yes Patient Participated in Evaluation: Yes Respiratory Function Stable: Yes Airway Patent: Yes Cardiovascular Function Stable: Yes Hydration Status Stable: Yes Pain Control Satisfactory: Yes Nausea and Vomiting Control Satisfactory: Yes Mental Status Recovered: Yes
[2017-05-23 12:19] VITALS: BP 154/99
--- NOTE | 2017-05-23 13:32 | OR ---
SURGEON: SULLY SEARS MD DATE OF PROCEDURE: 05/23/2017 PREOPERATIVE DIAGNOSIS: Throat cancer. POSTOPERATIVE DIAGNOSIS: Throat cancer. PROCEDURE PERFORMED: Percutaneous endoscopic gastrostomy tube placement. SURGEON: Jed Staples M.D. CREDIT COLLECTIONS MANAGER: Sully Sears MD. ESTIMATED BLOOD LOSS: 5 mL. FINDINGS: Successful PEG placement. Feeding tube at 3.5 cm on the skin. COMPLICATIONS: None. INDICATIONS: The patient is a 56-year-old male with throat cancer. I was asked by Dr. Jed Staples to assist with percutaneous endoscopic gastrostomy tube placement. Please see his note for further details. PROCEDURE IN DETAIL: The patient was brought into the OR and placed on the OR table in supine position. A time-out was completed verifying the patient's name, age, date of , allergies, and procedure to be performed. General endotracheal anesthesia was induced. Dr. Jed Staples performed the endoscopic portion of this case. Please see his note for further details. After the stomach had been successfully insufflated, the abdomen was prepped and draped in usual standard fashion. Using palpation of the left upper quadrant, I was able to see a good indentation in the antrum. 1% lidocaine plain was used to anesthetize the area over this spot. I passed a needle into the stomach and was able to pass successfully into the antrum. I made a 1 cm incision over this area on the abdominal wall skin. A large guide needle with a vascular sheath was then placed down the same track. This was visualized to go through the antrum. The needle was removed and the sheath left in place. A plastic guidewire was then placed down the vascular sheath and grasped by the endoscope via a loop snare. The plastic guidewire was then pulled out through the mouth. The feeding tube was looped around this, and I apply gentle pressure to the guidewire and pulled the feeding tube back down the esophagus into the stomach and through the abdominal wall. The feeding tube was pulled until the bumper was flush against the antrum and able to spin without any undue tension on the gastric mucosa. It was secured at 3.5 cm on the skin with the bumper. This bumper was then secured to the abdominal wall skin with interrupted 2-0 Prolene sutures. A clamp and a feeding tube access device were then put in place. Dr. Staples completed the EGD portion of the case and placed the feeding tube to gravity to allow desufflation of the stomach. Dr. Staples then continued with port placement. See his note for further details. There were no immediate intraoperative complications. EDDI MARQUIS /[id number] MTDD
--- NOTE | 2017-05-23 13:38 | OR ---
SURGEON: Jed Staples M.D. DATE OF PROCEDURE: 05/23/2017 OPERATION PERFORMED: Esophagogastroduodenoscopy with placement of percutaneous feeding gastrostomy. SURGEONS: Jed Staples M.D. and Sully Sears MD. ANESTHESIA: General endotracheal. ASA CLASSIFICATION: III. 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 ESTIMATED BLOOD LOSS: 10 mL. INTRAOPERATIVE FLUID REPLACEMENT: 1300 mL of crystalloid. DESCRIPTION OF PROCEDURE: The patient was taken to the operating room and placed on the operating table in the supine position. Time-out was called for appropriate identification of the patient and procedure. Following satisfactory attainment of general endotracheal anesthesia, a bite-block was placed between the patient's teeth. The gastroscope was inserted through the bite block into the hypopharynx where the tumor could be seen. I could maneuver the scope to pass this area into the stomach. Dr. Sears performed the abdominal portion of the procedure and will dictate her operative note separately. Once we had the stomach appropriately insufflated, the needle was passed into the stomach and the guidewire passed through this and grasped with the endoscopic graspers. The gastroscope was then brought out through the mouth, retrieving the wire guide. The feeding gastrostomy tube was connected to the wire guide and then reinserted through the bite block and pulled back into the stomach and through the skin. The gastroscope was reinserted to visualize the stomach. The feeding tube was clearly visualized and photographed. It is in excellent position. The gastroscope was then advanced through the pylorus into the duodenum. No acute ulcerations were noted. The stomach did not show significant gastritis. The gastroscope was retroflexed to visualize the proximal stomach. No lesions were identified. The gastroscope was then straightened and slowly withdrawn through the esophagus, which demonstrated good contractility and no acute pathology. Again, the neoplasm was visualized and photographed as the scope was withdrawn. The patient tolerated this portion of the procedure well. Following placement of a port, the patient was taken to recovery room in stable condition. KENDAL / BENITEZ /[id number]
--- NOTE | 2017-05-23 13:38 | CR ---
EXAMINATION: Portable chest radiograph. HISTORY: Port-A-Cath placement. FINDINGS: The trachea is midline. The cardiomediastinal silhouette is within normal limits. No pulmonary infilt rates, effusions or pneumothorax. Left-sided isaiah catheter noted with tip in the SVC in good positio n. Osseous structures appear unremarkable. IMPRESSION: No acute cardiopulmonary process.
--- NOTE | 2017-05-23 14:14 | OR ---
SURGEON: Jed Staples M.D. DATE OF PROCEDURE: 05/23/2017 OPERATION PERFORMED: Placement of Bard port for chemotherapy. ANESTHESIA: General endotracheal. ASA CLASSIFICATION: III. PREOPERATIVE DIAGNOSIS: Squamous cell carcinoma of the hypopharynx. POSTOPERATIVE DIAGNOSIS: Squamous cell carcinoma of the hypopharynx. ESTIMATED BLOOD LOSS: 10 mL. FLUID REPLACEMENT: 1300 mL of crystalloid. DESCRIPTION OF PROCEDURE: Following completion of percutaneous endoscopic gastrostomy, the left chest was prepped with DuraPrep solution and sterile drapes were applied. The skin in the left deltopectoral groove was marked out and infiltrated with 1% Xylocaine and 0.5% Marcaine solution. The skin incision was made and deepened through the subcutaneous tissue obtaining hemostasis with the use of electrocautery. The cephalic vein was identified and mobilized. It was of good quality. The vein was encircled with a total of 3-0 Vicryl ties. The distal tie was secured. Small venotomy was made and the heparin flushed catheter was inserted into the cephalic vein and positioned in the superior vena cava with the use of fluoroscopy. Once a good position was confirmed, the proximal ties were secured. An appropriate site for the port placement was identified on the chest wall. The skin was infiltrated with 0.5% Marcaine solution. The skin incision was made and deepened through the subcutaneous tissue obtaining hemostasis with the use of electrocautery. Subcutaneous port was made. The catheter was then passed through a subcutaneous tunnel through the anterior chest wall incision. With care taken to avoid an air embolus, the catheter was cut to appropriate length and the heparin flushed port and catheter were connected and secured. The port was then secured to the subcutaneous tissue with 2-0 silk suture. The wound was inspected for hemostasis. No bleeding was noted. The port does flush easily. Both incisions were closed in 2 layers approximating the subcutaneous tissue with 3-0 Polysorb and the skin with subcuticular 4-0 Monocryl. Both incisions were Steri-Stripped and dressed with separate Tegaderm pads. Sponge, needle, and instrument counts were all correct. The patient tolerated the procedure well. Following emergence from anesthesia and extubation, he was taken to recovery room in satisfactory condition. KENDAL / BENITEZ /[id number]
== END 2017-05-23 11:38 | disposition home or self-care (01) ==
LOC: MW.SDS 06:44
PROVIDERS: ATTEND Surgery
DX: C13.9 Malignant neoplasm of hypopharynx, unspecified (principal); F17.210 Nicotine dependence, cigarettes, uncomplicated; J34.2 Deviated nasal septum; I10 Essential (primary) hypertension; J30.89 Other allergic rhinitis; K21.9 Gastro-esophageal reflux disease without esophagitis; F32.9 Major depressive disorder, single episode, unspecified; F19.21 Other psychoactive substance dependence, in remission; R56.9 Unspecified convulsions; R45.851 Suicidal ideations; Z79.899 Other long term (current) drug therapy; Z98.890 Other specified postprocedural states
CPT/HCPCS: 36561; 43246; 71045; 76000; 94640; C1788; C9399; J1100; J1170; J1642; J2250; J2405; J3010; 00700; A9270-GY; J2704

== ENCOUNTER 2017-07-22 12:31 | Emergency (ER) | payer MEDICAID ==
[2017-07-22] MEDS ORDERED: Acetaminophen 325 MG Tab PO ONE (12:42)
[2017-07-22] MEDS ORDERED: Sodium Chloride 0.9% 1,000 ML IV ONE (12:42)
--- NOTE | 2017-07-22 12:53 | EDM.PDOC ---
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 Review of Systems: As per history of present illness and below otherwise all systems reviewed and negative. Past medical history: As per history of present illness and as reviewed below otherwise noncontributory. Surgical history: As per history of present illness and as reviewed below otherwise noncontributory. Social history: No reported history of drug or alcohol abuse. Family history: As per history of present illness and as reviewed below otherwise noncontributory. Physical exam: Very pleasant gentleman alert and oriented answering questions appropriately in full sentences without any shortness of breath. He is very cooperative with examination. Stating now his nausea has already resolved. Temperature was 100.4 orally here in the emergency department HEENT: Atraumatic, normocehpalic, pupils reactive, negative for conjunctival pallor or scleral icterus, mucous membranes moist, throat clear, neck supple, nontender, trachea midline. Lungs: Clear to auscultation, breath sounds equal bilaterally, chest non tender. Heart: S1S2, regular, negative for clicks, rubs, or JVD. Abdomen: Soft, nondistended, nontender. Negative for masses or hepatossplenmegaly. Negative for costovertebral tenderness. Pelvis: Stable nontender. Genitourinary: Deferred. Rectal: Deferred Extremities: Atraumatic, negative for cords or calf pain. Neurovascular unremarkable. Neuro: Awake, alert, oriented. Cranial nerves II through XII unremarkable. Cerebellum unremarkable. Motor and sensory unremarkable throughout. Exam nonfocal. Reviewed the lab work that was drawn this morning at the [facility]. She is feeling better temperatures trending down he is taking is some soup without any difficulty Diagnostics: [] Therapeutics: []1 L normal saline Tylenol by mouth Impression: [Reaction to chemotherapy] Plan: []Discharged to home Continue to keep hydrated The worsening of symptoms and would recommend he return for reevaluation in the emergency department Definitive disposition and diagnosis as appropriate pending reevaluation and review of above. Onset: Today, Sudden Duration: Minutes: Location: Reports: Generalized Quality: Reports: Ache Severity: Moderate Improves with: Reports: None Worsens with: Reports: None - Related Data Allergies Allergy/AdvReac Type Severity Reaction Status Date / Time dust Allergy Sneezing Uncoded 07/22/17 12:39 Home Meds: Home Meds Hydrochlorothiazide 25 mg PO DAILY 11/12/16 [History] Lisinopril 20 mg PO DAILY 11/12/16 [History] Mirtazapine 30 mg PO BEDTIME 11/12/16 [History] Dexamethasone [Decadron] 1 tab PO DAILY 07/22/17 [History] LORazepam 0.5 mg PO TID 07/22/17 [History] Omeprazole Magnesium [Prilosec] 20 mg PO DAILY 07/22/17 [History] Prochlorperazine Maleate [Compazine] 10 mg PO DAILY 07/22/17 [History] traMADol [Ultram] 50 mg PO DAILY 07/22/17 [History] Past Medical History - Past Health History Medical/Surgical History: Denies Medical/Surgical History HEENT History: Reports: None Cardiovascular History: Reports: Hypertension Respiratory History: Reports: None Gastrointestinal History: Reports: GERD Other Gastrointestinal History: hernia Genitourinary History: Reports: None Musculoskeletal History: Reports: Fracture Other Musculoskeletal History: right leg Neurological History: Reports: Seizure Psychiatric History: Reports: Addiction, Depression, Suicidal Ideation Endocrine/Metabolic History: Reports: None Hematologic History: Reports: None Immunologic History: Reports: None Oncologic (Cancer) History: Reports: Squamous Cell Carcinoma Other Oncologic History: left hypopharynx Dermatologic History: Reports: None - Infectious Disease History Infectious Disease History: Reports: Chicken Pox - Past Surgical History Head Surgeries/Procedures: Reports: None HEENT Surgical History: Reports: None Cardiovascular Surgical History: Reports: None Respiratory Surgical History: Reports: None GI Surgical History: Reports: Hernia, Inguinal Male Surgical History: Reports: None Neurological Surgical History: Reports: None Musculoskeletal Surgical History: Reports: ORIF Other Musculoskeletal Surgeries/Procedures:: ORIF right leg (has hardware) Oncologic Surgical History: Reports: None Dermatological Surgical History: Reports: None Social & Family History - Family History Family Medical History: Noncontributory - Tobacco Use Smoking Status *Q: Current Every Day Smoker Years of Tobacco use: 30 Packs/Tins Daily: 1 Second Hand Smoke Exposure: No - Caffeine Use Caffeine Use: Reports: Energy Drinks, Soda Caffeine Use Comment: 1 drink each/day - Alcohol Use Days Per Week of Alcohol Use: 3 Number of Drinks Per Day: 2 Total Drinks Per Week: 6 - Recreational Drug Use Recreational Drug Use: No Drug Use in Last 12 Months: No ED ROS GENERAL - Review of Systems Review Of Systems: ROS reveals no pertinent complaints other than HPI. ED EXAM, GENERAL - Physical Exam Exam: See Below (see dictation) Course - Vital Signs Last Recorded V/S: Last Vital Signs Temp 37.8 C 07/22/17 13:47 Pulse 107 H 07/22/17 13:47 Resp 18 07/22/17 13:47 BP 162/95 H 07/22/17 13:47 Pulse Ox 98 07/22/17 13:47 - Orders/Labs/Meds Meds: Medications Discontinued Medications Generic Name Dose Route Start Last Admin Trade Name Marycarmen PRN Reason Stop Dose Admin Acetaminophen 650 mg 07/22/17 12:42 07/22/17 13:09 Tylenol PO 07/22/17 12:43 650 mg NOW ONE Administration Sodium Chloride 1,000 mls @ 999 mls/hr 07/22/17 12:42 07/22/17 13:08 Normal Saline IV 07/22/17 13:42 999 mls/hr STAT ONE Administration Departure - Departure Time of Disposition: 13:59 Disposition: Home, Self-Care 01 Condition: Good Clinical Impression: Chemotherapy adverse reaction Qualifiers: Encounter type: initial encounter Qualified Code(s): T45.1X5A - Adverse effect of antineoplastic and immunosuppressive drugs, initial encounter - Discharge Information Referrals: PCP,Unknown [Primary Care Provider] - Forms: ED Department Discharge Additional Instructions: The following information is given to patients seen in the emergency department who are being discharged to home. This information is to outline your options for follow-up care. We provide all patients seen in our emergency department with a follow-up referral. The need for follow-up, as well as the timing and circumstances, are variable depending upon the specifics of your emergency department visit. If you don't have a primary care physician on staff, we will provide you with a referral. We always advise you to contact your personal physician following an emergency department visit to inform them of the circumstance of the visit and for follow-up with them and/or the need for any referrals to a consulting specialist. The emergency department will also refer you to a specialist when appropriate. This referral assures that you have the opportunity for followup care with a specialist. All of these measure are taken in an effort to provide you with optimal care, which includes your followup. Under all circumstances we always encourage you to contact your private physician who remains a resource for coordinating your care. When calling for followup care, please make the office aware that this follow-up is from your recent emergency room visit. If for any reason you are refused follow-up, please contact the [facility] emergency department at and asked to speak to the emergency department charge nurse. Follow-up with your primary care in a cancer doctor as recommended
[2017-07-22 13:48] VITALS: BP 162/95
[2017-07-22] MEDS ORDERED: Heparin Sodium 10 Units/ML 5 ML Syringe FLUSH ONE (14:03)
[2017-07-22] MEDS ORDERED: Heparin Sodium 100 Units/ML 3 ML Syringe FLUSH ONE (14:06)
[2017-07-22 15:49] LABS: CHLORIDE,CL 98 mmol/L (98-107); SODIUM,NA 128 mmol/L (136-148)
== END 2017-07-22 14:21 | disposition home or self-care (01) ==
LOC: MW.ED 12:31
DX: R50.9 Fever, unspecified (principal); R11.2 Nausea with vomiting, unspecified; T45.1X5A Adverse effect of antineoplastic and immunosuppressive drugs, initial encounter; I10 Essential (primary) hypertension; K21.9 Gastro-esophageal reflux disease without esophagitis; F17.210 Nicotine dependence, cigarettes, uncomplicated; Z91.048 Other nonmedicinal substance allergy status; Z79.899 Other long term (current) drug therapy
CPT/HCPCS: 80053; 85025; 87040; 96360; 99283; A9270; J1642; J7040

== ENCOUNTER 2017-09-29 02:10 | Inpatient (IN) | payer MEDICAID, OTHER ==
[2017-09-29] MEDS ORDERED: Ketorolac 60 MG/2 ML SDV IM ONE (02:33)
--- NOTE | 2017-09-29 02:33 | EDM.PDOC ---
ED HPI GENERAL MEDICAL PROBLEM - General Chief Complaint: Behavioral/Psych Stated Complaint: MENTAL HEALTH Time Seen by Provider: 09/29/17 02:20 Source of Information: Reports: Patient, Police History Limitations: Reports: No Limitations - History of Present Illness INITIAL COMMENTS - FREE TEXT/NARRATIVE: HISTORY AND PHYSICAL: History of present illness: 57-year-old male presenting to the emergency department by law enforcement with chief complaint of suicidal ideations. Police state that patient called them to report that he was feeling suicidal. He tells me and did tell them that he wanted to shoot himself in the head. He has a friend who has a gun that was loaded and he was able to use. He also states that if that did not work he would stab himself with a knife. He told police that he has knives in his car that he would use to kill himself. He does also admit to drinking heavily since this morning. He is unsure on how much he drank. He does repeat multiple times that he does want help for his alcohol dependence. He also has a history of throat CA for which he is being treated here in [place]. Patient reports that he has a g-tube and that he is having alot of pain in his neck and hips. Patient has been seen multiple times in the ER for similar mental health and alcohol intoxication. Patient states that he has stopped all of his cancer treatments and has not been taking any of his medications. -Called and talked with [facility]. Patient will need medical stablizing before placed on inpatient psych. They have no beds currently so not able to accept patient. -Called and talked with [facility] who have no beds. -Called and talked with [facility] who have beds but will not accept patient until medically stabilized at our facility. The will accept after medically cleared. Review of systems: As per history of present illness and below otherwise all systems reviewed and negative. Past medical history: As per history of present illness and as reviewed below otherwise noncontributory. Surgical history: As per history of present illness and as reviewed below otherwise noncontributory. Social history: No reported history of drug or alcohol abuse. Family history: As per history of present illness and as reviewed below otherwise noncontributory. Physical exam: HEENT: Atraumatic, normocephalic, pupils reactive, negative for conjunctival pallor or scleral icterus, mucous membranes moist, throat clear, neck supple, nontender, trachea midline. Lungs: Clear to auscultation, breath sounds equal bilaterally, chest nontender. Heart: S1S2, regular, negative for clicks, rubs, or JVD. Abdomen: Soft, nondistended, nontender. G-tube in place. Hepatomegaly noted 2 cm below rib line. Negative for costovertebral tenderness. Pelvis: Stable nontender. Genitourinary: Deferred. Rectal: Deferred. Extremities: Atraumatic, negative for cords or calf pain. Neurovascular unremarkable. Neuro: Awake, alert, oriented. Cranial nerves II through XII unremarkable. Cerebellum unremarkable. Motor and sensory unremarkable throughout. Exam nonfocal. Diagnostics: CBC, CMP, UA, UDS, TSH Therapeutics: Banana bag x1, Tordol 60 mg x1, 40 mg KCl, 1 L NS Impression: Major Depression with active suicidal ideations and plan Acute ETOH intoxication Hyponatremia Hypokalemia Failure to Thrive Hypothyroid Plan: Patient continued to have active suicidal ideations. He is on the me hyponatremic with a sodium of 126. Looking at his records he seems to be more chronically hyponatremic as the highest sodium levels I could find within this year were 133 with a goal of 121. Patient was also found to be hypokalemic with a potassium of 3.1. TSH was elevated as well. EtOH was 345. As above and did talk to multiple sub-facilities were unable to accept the patient secondary to either no psychiatric beds or request to have patient medically cleared before excepting. [facility] did state that they will accept the patient once he is more medically stabilized. He is acutely intoxicated as well as hyponatremic and hypokalemic. Most likely acute on chronic hyponatremia. In addition he appears to be hypothyroid as well. Did talk with Dr. Martinez, hospitalist, who will accept patient for his hyponatremia and acute ETOH intoxication. Once patient medically stabilized hope would be to transfer him to inpatient psych for his active suicidal ideations with plan then to proceed to alcohol rehabilitation. generalized Pain Score (Numeric/FACES): 5 - Related Data Allergies Allergy/AdvReac Type Severity Reaction Status Date / Time dust Allergy Sneezing Uncoded 09/29/17 02:29 Home Meds: Home Meds Chlorhexidine Gluconate [Chlorhexidine Gluconate 0.12% Rinse] 118 ml MM TID [History] Hydrochlorothiazide 25 mg PO DAILY 09/22/17 [History] LORazepam 0.5 mg PO DAILY 09/22/17 [History] Lisinopril 40 mg PO BID 09/22/17 [History] Past Medical History - Past Health History Medical/Surgical History: Denies Medical/Surgical History HEENT History: Reports: None Cardiovascular History: Reports: Hypertension Respiratory History: Reports: None Gastrointestinal History: Reports: GERD Other Gastrointestinal History: hernia Genitourinary History: Reports: None Musculoskeletal History: Reports: Fracture Other Musculoskeletal History: right leg Neurological History: Reports: Seizure Psychiatric History: Reports: Addiction, Depression, Suicidal Ideation Endocrine/Metabolic History: Reports: None Hematologic History: Reports: None Immunologic History: Reports: None Oncologic (Cancer) History: Reports: Squamous Cell Carcinoma Other Oncologic History: left hypopharynx Dermatologic History: Reports: None - Infectious Disease History Infectious Disease History: Reports: Chicken Pox - Past Surgical History Head Surgeries/Procedures: Reports: None HEENT Surgical History: Reports: None Cardiovascular Surgical History: Reports: None Respiratory Surgical History: Reports: None GI Surgical History: Reports: Hernia, Inguinal Male Surgical History: Reports: None Neurological Surgical History: Reports: None Musculoskeletal Surgical History: Reports: ORIF Other Musculoskeletal Surgeries/Procedures:: ORIF right leg (has hardware) Oncologic Surgical History: Reports: None Dermatological Surgical History: Reports: None Social & Family History - Family History Family Medical History: Noncontributory - Caffeine Use Caffeine Use: Reports: Soda Caffeine Use Comment: 1 drink each/day ED ROS GENERAL - Review of Systems Review Of Systems: See Below ED EXAM, GENERAL - Physical Exam Exam: See Below Course - Vital Signs Last Recorded V/S: Last Vital Signs Temp 97.5 F 09/29/17 02:20 Pulse 90 09/29/17 04:44 Resp 20 09/29/17 04:44 BP 108/72 09/29/17 04:44 Pulse Ox 83 L 09/29/17 04:44 - Orders/Labs/Meds Orders: Active Orders 24 hr Category Date Time Status CXR [Chest 1V Frontal] [CR] Stat Exams 09/29/17 04:50 Ordered CULTURE URINE [RM] Stat Lab 09/29/17 04:10 Ordered DRUG SCREEN, URINE [URCHEM] Stat Lab 09/29/17 04:10 Ordered UA W/MICROSCOPIC [URIN] Stat Lab 09/29/17 04:10 Ordered Sodium Chloride 0.9% with KCl [Normal Saline with 40 Med 09/29/17 04:00 Active mEq KCl] 1,000 ml IV ASDIRECTED Medication Orders Potassium Chloride/Sodium Chloride (Normal Saline With 40 Meq Kcl) 1,000 mls @ 125 mls/hr IV ASDIRECTED NELIDA Last Admin: 09/29/17 04:38 Dose: 125 mls/hr Labs: Laboratory Tests 09/29/17 09/29/17 09/29/17 Range/Units 02:40 02:40 02:40 WBC 4.03 (4.0-11.0) K/uL RBC 4.29 L (4.50-5.90) M/uL Hgb 13.9 (13.0-17.0) g/dL Hct 38.9 (38.0-50.0) % MCV 90.7 (80.0-98.0) fL MCH 32.4 H (27.0-32.0) pg MCHC 35.7 (31.0-37.0) g/dL RDW Std Deviation 43.0 (28.0-62.0) fl RDW Coeff of Adonay 13 (11.0-15.0) % Plt Count 139 L (150-400) K/uL MPV 10.00 (7.40-12.00) fL Neut % (Auto) 47.9 L (48.0-80.0) % Lymph % (Auto) 34.0 (16.0-40.0) % [place] % (Auto) 11.9 (0.0-15.0) % Eos % (Auto) 5.5 (0.0-7.0) % Baso % (Auto) 0.7 (0.0-1.5) % Neut # (Auto) 1.9 (1.4-5.7) K/uL Lymph # (Auto) 1.4 (0.6-2.4) K/uL [place] # (Auto) 0.5 (0.0-0.8) K/uL Eos # (Auto) 0.2 (0.0-0.7) K/uL Baso # (Auto) 0.0 (0.0-0.1) K/uL Nucleated RBC % 0.0 /100WBC Nucleated RBCs # 0 K/uL Sodium 126 L (136-148) mmol/L Potassium 3.1 L (3.5-5.1) mmol/L Chloride 92 L (98-107) mmol/L Carbon Dioxide 20.3 L (21.0-32.0) mmol/L BUN 9 (7.0-18.0) mg/dL Creatinine 0.8 (0.8-1.3) mg/dL Est Cr Clr Drug Dosing 89.28 mL/min Estimated GFR (MDRD) > 60.0 ml/min Glucose 82 (74-106) mg/dL Calcium 8.0 L (8.5-10.1) mg/dL Total Bilirubin 0.3 (0.2-1.0) mg/dL AST 94 H (15-37) IU/L ALT 48 (14-63) IU/L Alkaline Phosphatase 63 (46-116) U/L Total Protein 6.3 L (6.4-8.2) g/dL Albumin 3.1 L (3.4-5.0) g/dL Globulin 3.2 (2.0-3.5) g/dL Albumin/Globulin Ratio 1.0 L (1.3-2.8) TSH 3rd Generation 6.28 H (0.36-3.74) uIU/mL Urine Color Urine Appearance Urine pH (5.0-8.0) Ur Specific [place] (1.001-1.035) Urine Protein (NEGATIVE) mg/dL Urine Glucose (UA) (NEGATIVE) mg/dL Urine Ketones (NEGATIVE) mg/dL Urine Occult Blood (NEGATIVE) Urine Nitrite (NEGATIVE) Urine Bilirubin (NEGATIVE) Urine Urobilinogen (<2.0) EU/dL Ur Leukocyte Esterase (NEGATIVE) Urine RBC (0-2/HPF) Urine WBC (0-5/HPF) Ur Epithelial Cells (NONE-FEW) Urine Bacteria (NEGATIVE) Urine Mucus (NONE-MOD) Salicylates 3.4 (0-20) mg/dL Urine Opiates Screen (NEGATIVE) Ur Oxycodone Screen (NEGATIVE) Urine Methadone Screen (NEGATIVE) Acetaminophen 0.0 ug/mL Ur Barbiturates Screen (NEGATIVE) Ur Phencyclidine Scrn (NEGATIVE) Ur Amphetamine Screen (NEGATIVE) U Methamphetamines Scrn (NEGATIVE) U Benzodiazepines Scrn (NEGATIVE) U Cocaine Metab Screen (NEGATIVE) U Marijuana (THC) Screen (NEGATIVE) Ethyl Alcohol 345 mg/dL 09/29/17 09/29/17 Range/Units 04:10 04:10 WBC (4.0-11.0) K/uL RBC (4.50-5.90) M/uL Hgb (13.0-17.0) g/dL Hct (38.0-50.0) % MCV (80.0-98.0) fL MCH (27.0-32.0) pg MCHC (31.0-37.0) g/dL RDW Std Deviation (28.0-62.0) fl RDW Coeff of Adonay (11.0-15.0) % Plt Count (150-400) K/uL MPV (7.40-12.00) fL Neut % (Auto) (48.0-80.0) % Lymph % (Auto) (16.0-40.0) % [place] % (Auto) (0.0-15.0) % Eos % (Auto) (0.0-7.0) % Baso % (Auto) (0.0-1.5) % Neut # (Auto) (1.4-5.7) K/uL Lymph # (Auto) (0.6-2.4) K/uL [place] # (Auto) (0.0-0.8) K/uL Eos # (Auto) (0.0-0.7) K/uL Baso # (Auto) (0.0-0.1) K/uL Nucleated RBC % /100WBC Nucleated RBCs # K/uL Sodium (136-148) mmol/L Potassium (3.5-5.1) mmol/L Chloride (98-107) mmol/L Carbon Dioxide (21.0-32.0) mmol/L BUN (7.0-18.0) mg/dL Creatinine (0.8-1.3) mg/dL Est Cr Clr Drug Dosing mL/min Estimated GFR (MDRD) ml/min Glucose (74-106) mg/dL Calcium (8.5-10.1) mg/dL Total Bilirubin (0.2-1.0) mg/dL AST (15-37) IU/L ALT (14-63) IU/L Alkaline Phosphatase (46-116) U/L Total Protein (6.4-8.2) g/dL Albumin (3.4-5.0) g/dL Globulin (2.0-3.5) g/dL Albumin/Globulin Ratio (1.3-2.8) TSH 3rd Generation (0.36-3.74) uIU/mL Urine Color YELLOW Urine Appearance CLEAR Urine pH 5.5 (5.0-8.0) Ur Specific [place] <= 1.005 (1.001-1.035) Urine Protein NEGATIVE (NEGATIVE) mg/dL Urine Glucose (UA) NEGATIVE (NEGATIVE) mg/dL Urine Ketones NEGATIVE (NEGATIVE) mg/dL Urine Occult Blood NEGATIVE (NEGATIVE) Urine Nitrite NEGATIVE (NEGATIVE) Urine Bilirubin NEGATIVE (NEGATIVE) Urine Urobilinogen 0.2 (<2.0) EU/dL Ur Leukocyte Esterase NEGATIVE (NEGATIVE) Urine RBC NONE SEEN (0-2/HPF) Urine WBC 0-1 (0-5/HPF) Ur Epithelial Cells RARE (NONE-FEW) Urine Bacteria RARE (NEGATIVE) Urine Mucus LIGHT (NONE-MOD) Salicylates (0-20) mg/dL Urine Opiates Screen NEGATIVE (NEGATIVE) Ur Oxycodone Screen NEGATIVE (NEGATIVE) Urine Methadone Screen NEGATIVE (NEGATIVE) Acetaminophen ug/mL Ur Barbiturates Screen NEGATIVE (NEGATIVE) Ur Phencyclidine Scrn NEGATIVE (NEGATIVE) Ur Amphetamine Screen NEGATIVE (NEGATIVE) U Methamphetamines Scrn NEGATIVE (NEGATIVE) U Benzodiazepines Scrn NEGATIVE (NEGATIVE) U Cocaine Metab Screen NEGATIVE (NEGATIVE) U Marijuana (THC) Screen NEGATIVE (NEGATIVE) Ethyl Alcohol mg/dL Meds: Medications Generic Name Dose Route Start Last Admin Trade Name Freq PRN Reason Stop Dose Admin Potassium Chloride/Sodium Chloride 1,000 mls @ 125 mls/hr 09/29/17 04:00 04:38 Normal Saline With 40 Meq Kcl IV 125 mls/hr ASDIRECTED NELIDA Administration Discontinued Medications Generic Name Dose Route Start Last Admin Trade Name Freq PRN Reason Stop Dose Admin Multivitamins/Minerals 10 ml/ 1,011.2 mls @ 999 mls/hr 09/29/17 02:34 03:26 Thiamine HCl 100 mg/ Folic IV 09/29/17 03:34 999 mls/hr Acid 1 mg/ Sodium Chloride ONETIME ONE Administration Sodium Chloride 1,000 mls @ 999 mls/hr 09/29/17 03:02 09/29/17 03:05 Normal Saline IV 09/29/17 04:02 999 mls/hr .Bolus ONE Administration Ketorolac Tromethamine 60 mg 09/29/17 02:33 09/29/17 03:01 Toradol IM 09/29/17 02:34 Not Given ONETIME ONE Ketorolac Tromethamine 30 mg 09/29/17 02:48 09/29/17 02:57 Toradol IVPUSH 09/29/17 02:49 30 mg ONETIME ONE Administration Departure - Departure Time of Disposition: 04:53 Disposition: Admitted As Inpatient 68 Condition: Good Clinical Impression: Hyponatremia - Discharge Information Referrals: PCP,None [Primary Care Provider] - Forms: ED Department Discharge - My Orders Last 24 Hours: My Active Orders 09/29/17 04:00 Sodium Chloride 0.9% with KCl [Normal Saline with 40 mEq KCl] 1,000 ml IV ASDIRECTED 09/29/17 04:10 CULTURE URINE [RM] Stat DRUG SCREEN, URINE [URCHEM] Stat UA W/MICROSCOPIC [URIN] Stat 09/29/17 04:50 CXR [Chest 1V Frontal] [CR] Stat - Assessment/Plan Last 24 Hours: My Active Orders 09/29/17 04:00 Sodium Chloride 0.9% with KCl [Normal Saline with 40 mEq KCl] 1,000 ml IV ASDIRECTED 09/29/17 04:10 CULTURE URINE [RM] Stat DRUG SCREEN, URINE [URCHEM] Stat UA W/MICROSCOPIC [URIN] Stat 09/29/17 04:50 CXR [Chest 1V Frontal] [CR] Stat
[2017-09-29] MEDS ORDERED: MVI, Adult with Vitamin K 10 ML, Thiamine 100 MG, Folic Acid 1 MG in Sodium Chloride 0.... IV ONE ×4 (02:34)
[2017-09-29] MEDS ORDERED: Ketorolac 30 MG/ML SDV IVPUSH ONE (02:48)
[2017-09-29] MEDS ORDERED: Sodium Chloride 0.9% 1,000 ML IV ONE (03:02)
[2017-09-29 03:20] LABS: CHLORIDE,CL 92 mmol/L (98-107); SODIUM,NA 126 mmol/L (136-148)
[2017-09-29] MEDS ORDERED: Sodium Chloride 0.9% with KCl 1,000 ML IV SCH (04:00)
[2017-09-29] MEDS ORDERED: LORazepam 2 MG/ML SDV IVPUSH PRN (06:42)
[2017-09-29 07:24] LABS: CHLORIDE,CL 99 mmol/L (98-107); SODIUM,NA 132 mmol/L (136-148)
--- NOTE | 2017-09-29 07:35 | PCM.HP ---
H&P History of Present Illness - General Date of Service: 09/29/17 Admit Problem/Dx: Admission Diagnosis/Problem Admission Diagnosis/Problem Hyponatremia/suicidal ideation Source of Information: Patient History Limitations: Reports: No Limitations - History of Present Illness Initial Comments - Free Text/Narative: This 57 year old male, smoker with pmh of squamos cell carcinoma of the hypopharynx, stage 4A who completed chemoradiation therapy in July 2017, alcohol abuse, and HTN presented to the ED last evening with the police for suicidal ideation. The police reports he called the police reporting he was having thoughts of harming himself. He told the ED provider that he has a friend with a gun and he would shoot himself and if he couldn't get that gun he would use a knife. This morning patient is more alert and not overtly intoxicated. He is conversing well. He reports he is very depressed and continues to have suicidal thoughts and has a plan. He reports his cancer and the continuously weight loss has him depressed, "I'm wasting away." Reports he called the police because, "I need help. Somebody needs to help me get better." He reports he has been drinking heavily, especially in the last 3 weeks. He reports he drinks a large beer and 1/2 pint of gerson in the morning, passes out , then wakes up in the afternoon evening and repeats this daily. He is supposed to be taking in 6-7 cans of Jevity 1.5 daily to help with his weight, but reports he maybe drinks 2 orally, but has not been using his PEG tube. He also has not been eating much at all, but just drinking alcohol. Since completing chemoradiation therapy in July he has continued to lose nearly 15 lbs and down nearly 50 lbs since April. He reports he has very little support with family and friends and is going through this alone. He was seen in [facility] ED 1 week ago with similar presentation. He was discharged home. he reports he wants to stop drinking and wants help with his suicidal thoughts and mental health. He denies ever being on medication for depression. reports taking Remeron for sleep and appetite stimulant, along with blood pressure medication, Magnesium and Prilosec. In the ED CBC WNL, Na 126, K+ 3.1, Cl 92, Bicarb 20.3, Protein 6.3, albumin 3.1. he was treated with banana bag and Toradol. ED MD attempted transfer to inpatient psych unit, but was unsuccessful. Many are wanting him medical stable prior to accepting him for inpatient psychiatric help. He was admitted observation for medical stabilization. PCP, Dr Quintana, [facility]- Dr Monsalve Radiation Oncologist- Dr Pisano Reviewed records from Oncology as well as spoke with Nakia, oncology nurse. She reports he has been struggling a lot with weight gain and has been getting intermittent fluids in the transfusion center. I reviewed Dr Monsalve and Dr Pisano's last oncology notes. He will be evaluated with PET scan November 07 for further staging and to determine his next course of treatment. he did complete full treatment course per notes. He has been seeing network admin as outpatient to help with weight gain and PEG tube feedings, but he has been non-complaint with tube feedings at home. generalized Pain Score (Numeric/FACES): 10 Right Upper Leg Pain Score (Numeric/FACES): 2 - Related Data Allergies/Adverse Reactions: Allergies Allergy/AdvReac Type Severity Reaction Status Date / Time dust Allergy Sneezing Uncoded 09/29/17 02:29 Home Medications: Home Meds Chlorhexidine Gluconate [Chlorhexidine Gluconate 0.12% Rinse] 118 ml MM TID [History] Hydrochlorothiazide 25 mg PO DAILY 09/22/17 [History] LORazepam 0.5 mg PO DAILY 09/22/17 [History] Lisinopril 40 mg PO BID 09/22/17 [History] Past Medical History - Past Health History Medical/Surgical History: Denies Medical/Surgical History HEENT History: Reports: None Cardiovascular History: Reports: Hypertension. Denies: Blood Clots/VTE/DVT, CAD , High Cholesterol, [place] Respiratory History: Reports: None. Denies: COPD, PE Gastrointestinal History: Reports: GERD Genitourinary History: Reports: Other (See Below) (inguinal hernia) Musculoskeletal History: Reports: Fracture Other Musculoskeletal History: right leg Neurological History: Reports: Seizure Psychiatric History: Reports: Addiction, Depression, Suicidal Ideation Endocrine/Metabolic History: Reports: None. Denies: Diabetes, Type II Hematologic History: Reports: None Immunologic History: Reports: None Oncologic (Cancer) History: Reports: Squamous Cell Carcinoma Other Oncologic History: left hypopharynx Dermatologic History: Reports: None - Infectious Disease History Infectious Disease History: Reports: Chicken Pox - Past Surgical History Head Surgeries/Procedures: Reports: None HEENT Surgical History: Reports: None Cardiovascular Surgical History: Reports: None Respiratory Surgical History: Reports: None GI Surgical History: Reports: Hernia, Inguinal Male Surgical History: Reports: None Neurological Surgical History: Reports: None Musculoskeletal Surgical History: Reports: ORIF Other Musculoskeletal Surgeries/Procedures:: ORIF right leg (has hardware) Oncologic Surgical History: Reports: None Dermatological Surgical History: Reports: None Social & Family History - Family History Family Medical History: Noncontributory - Tobacco Use Smoking Status *Q: Current Status Unknown - Caffeine Use Caffeine Use: Reports: Soda Caffeine Use Comment: 1 drink each/day - Alcohol Use Alcohol Use History: Yes Days Per Week of Alcohol Use: 7 Number of Drinks Per Day: 7 Total Drinks Per Week: 49 Alcohol Use Frequency: Daily - Recreational Drug Use Recreational Drug Use: No - Living Situation & Occupation Living situation: Reports: Single Occupation: Unemployed Social History Comment: reports no social support from family or friends. reports when "things got bad they all left me." H&P Review of Systems - Review of Systems: Review Of Systems: See Below General: Reports: Fatigue, Decreased Appetite, Weight Loss. Denies: Fever, Chills, Malaise HEENT: Reports: Sore Throat (some pain with swallowing). Denies: Headaches, Sinus Congestion Pulmonary: Reports: No Symptoms. Denies: Shortness of Breath, Wheezing, Cough, Sputum Cardiovascular: Reports: No Symptoms. Denies: Chest Pain, Palpitations, Dyspnea on Exertion, Edema Gastrointestinal: Reports: Black Stool, Decreased Appetite. Denies: Abdominal Pain, Diarrhea, Distension, Nausea, Vomiting Genitourinary: Reports: No Symptoms. Denies: Dysuria, Frequency, Burning Skin: Reports: No Symptoms Psychiatric: Reports: Depression, Anxiety, Suicidal Ideation. Denies: Homicidal Ideation, Hallucinations (Auditory), Hallucinations (Visual) Neurological: Reports: No Symptoms Hematologic/Lymphatic: Reports: No Symptoms Immunologic: Reports: No Symptoms Exam - Exam Exam: See Below - Vital Signs Vital Signs: Last Vital Signs Temp 97.9 F 09/29/17 06:00 Pulse 94 09/29/17 06:00 Resp 18 09/29/17 06:00 BP 97/61 09/29/17 06:00 Pulse Ox 94 L 09/29/17 06:00 Weight: 60.5 kg - Exam General: Alert, Oriented, Cooperative HEENT: Conjunctiva Clear, Other (poor dentition, hoarse voice, ) Neck: Supple, Trachea Midline, Full Range of Motion. No: Lymphadenopathy Lungs: Clear to Auscultation, Normal Respiratory Effort Cardiovascular: Regular Rate, Regular Rhythm GI/Abdominal Exam: Normal Bowel Sounds, Soft, Non-Tender, No Organomegaly, No Distention, No Abnormal Bruit, No Mass, Pelvis Stable, Other (PEG tube to LUQ, no erythema or drainage noted. Old tape and adhesive all over abdomen with lint stuck to it. ) Extremities: Normal Inspection, Normal Range of Motion, Non-Tender, No Pedal Edema, Normal Capillary Refill Skin: Warm, Dry Neurological: Cranial Nerves Intact Neuro Extensive - Mental Status: Alert, Oriented x3 Neuro Extensive - Motor, Sensory, Reflexes: CN II-XII Intact Psychiatric: Anxious, Depressed, Suicidal Ideation - Patient Data Lab Results Last 24 hrs: Laboratory Results - last 24 hr 09/29/17 09/29/17 09/29/17 Range/Units 02:40 02:40 02:40 WBC 4.03 (4.0-11.0) K/uL RBC 4.29 L (4.50-5.90) M/uL Hgb 13.9 (13.0-17.0) g/dL Hct 38.9 (38.0-50.0) % MCV 90.7 (80.0-98.0) fL MCH 32.4 H (27.0-32.0) pg MCHC 35.7 (31.0-37.0) g/dL RDW Std Deviation 43.0 (28.0-62.0) fl RDW Coeff of Adonay 13 (11.0-15.0) % Plt Count 139 L (150-400) K/uL MPV 10.00 (7.40-12.00) fL Neut % (Auto) 47.9 L (48.0-80.0) % Lymph % (Auto) 34.0 (16.0-40.0) % Dillon % (Auto) 11.9 (0.0-15.0) % Eos % (Auto) 5.5 (0.0-7.0) % Baso % (Auto) 0.7 (0.0-1.5) % Neut # (Auto) 1.9 (1.4-5.7) K/uL Lymph # (Auto) 1.4 (0.6-2.4) K/uL Dillon # (Auto) 0.5 (0.0-0.8) K/uL Eos # (Auto) 0.2 (0.0-0.7) K/uL Baso # (Auto) 0.0 (0.0-0.1) K/uL Nucleated RBC % 0.0 /100WBC Nucleated RBCs # 0 K/uL Sodium 126 L (136-148) mmol/L Potassium 3.1 L (3.5-5.1) mmol/L Chloride 92 L (98-107) mmol/L Carbon Dioxide 20.3 L (21.0-32.0) mmol/L BUN 9 (7.0-18.0) mg/dL Creatinine 0.8 (0.8-1.3) mg/dL Est Cr Clr Drug Dosing 89.28 mL/min Estimated GFR (MDRD) > 60.0 ml/min Glucose 82 (74-106) mg/dL Calcium 8.0 L (8.5-10.1) mg/dL Phosphorus (2.6-4.7) mg/dL Magnesium (1.5-2.0) mg/dL Total Bilirubin 0.3 (0.2-1.0) mg/dL AST 94 H (15-37) IU/L ALT 48 (14-63) IU/L Alkaline Phosphatase 63 (46-116) U/L Total Protein 6.3 L (6.4-8.2) g/dL Albumin 3.1 L (3.4-5.0) g/dL Globulin 3.2 (2.0-3.5) g/dL Albumin/Globulin Ratio 1.0 L (1.3-2.8) TSH 3rd Generation 6.28 H (0.36-3.74) uIU/mL Urine Color Urine Appearance Urine pH (5.0-8.0) Ur Specific [place] (1.001-1.035) Urine Protein (NEGATIVE) mg/dL Urine Glucose (UA) (NEGATIVE) mg/dL Urine Ketones (NEGATIVE) mg/dL Urine Occult Blood (NEGATIVE) Urine Nitrite (NEGATIVE) Urine Bilirubin (NEGATIVE) Urine Urobilinogen (<2.0) EU/dL Ur Leukocyte Esterase (NEGATIVE) Urine RBC (0-2/HPF) Urine WBC (0-5/HPF) Ur Epithelial Cells (NONE-FEW) Urine Bacteria (NEGATIVE) Urine Mucus (NONE-MOD) Salicylates 3.4 (0-20) mg/dL Urine Opiates Screen (NEGATIVE) Ur Oxycodone Screen (NEGATIVE) Urine Methadone Screen (NEGATIVE) Acetaminophen 0.0 ug/mL Ur Barbiturates Screen (NEGATIVE) Ur Phencyclidine Scrn (NEGATIVE) Ur Amphetamine Screen (NEGATIVE) U Methamphetamines Scrn (NEGATIVE) U Benzodiazepines Scrn (NEGATIVE) U Cocaine Metab Screen (NEGATIVE) U Marijuana (THC) Screen (NEGATIVE) Ethyl Alcohol 345 mg/dL 09/29/17 09/29/17 09/29/17 Range/Units 04:10 04:10 06:57 WBC (4.0-11.0) K/uL RBC (4.50-5.90) M/uL Hgb (13.0-17.0) g/dL Hct (38.0-50.0) % MCV (80.0-98.0) fL MCH (27.0-32.0) pg MCHC (31.0-37.0) g/dL RDW Std Deviation (28.0-62.0) fl RDW Coeff of Adonay (11.0-15.0) % Plt Count (150-400) K/uL MPV (7.40-12.00) fL Neut % (Auto) (48.0-80.0) % Lymph % (Auto) (16.0-40.0) % Dillon % (Auto) (0.0-15.0) % Eos % (Auto) (0.0-7.0) % Baso % (Auto) (0.0-1.5) % Neut # (Auto) (1.4-5.7) K/uL Lymph # (Auto) (0.6-2.4) K/uL Dillon # (Auto) (0.0-0.8) K/uL Eos # (Auto) (0.0-0.7) K/uL Baso # (Auto) (0.0-0.1) K/uL Nucleated RBC % /100WBC Nucleated RBCs # K/uL Sodium 132 L (136-148) mmol/L Potassium 3.2 L (3.5-5.1) mmol/L Chloride 99 (98-107) mmol/L Carbon Dioxide 19.5 L (21.0-32.0) mmol/L BUN 7 (7.0-18.0) mg/dL Creatinine 0.7 L (0.8-1.3) mg/dL Est Cr Clr Drug Dosing 102.03 mL/min Estimated GFR (MDRD) > 60.0 ml/min Glucose 90 (74-106) mg/dL Calcium 7.3 L (8.5-10.1) mg/dL Phosphorus 2.7 (2.6-4.7) mg/dL Magnesium 0.9 L (1.5-2.0) mg/dL Total Bilirubin (0.2-1.0) mg/dL AST (15-37) IU/L ALT (14-63) IU/L Alkaline Phosphatase (46-116) U/L Total Protein (6.4-8.2) g/dL Albumin (3.4-5.0) g/dL Globulin (2.0-3.5) g/dL Albumin/Globulin Ratio (1.3-2.8) TSH 3rd Generation (0.36-3.74) uIU/mL Urine Color YELLOW Urine Appearance CLEAR Urine pH 5.5 (5.0-8.0) Ur Specific [place] <= 1.005 (1.001-1.035) Urine Protein NEGATIVE (NEGATIVE) mg/dL Urine Glucose (UA) NEGATIVE (NEGATIVE) mg/dL Urine Ketones NEGATIVE (NEGATIVE) mg/dL Urine Occult Blood NEGATIVE (NEGATIVE) Urine Nitrite NEGATIVE (NEGATIVE) Urine Bilirubin NEGATIVE (NEGATIVE) Urine Urobilinogen 0.2 (<2.0) EU/dL Ur Leukocyte Esterase NEGATIVE (NEGATIVE) Urine RBC NONE SEEN (0-2/HPF) Urine WBC 0-1 (0-5/HPF) Ur Epithelial Cells RARE (NONE-FEW) Urine Bacteria RARE (NEGATIVE) Urine Mucus LIGHT (NONE-MOD) Salicylates (0-20) mg/dL Urine Opiates Screen NEGATIVE (NEGATIVE) Ur Oxycodone Screen NEGATIVE (NEGATIVE) Urine Methadone Screen NEGATIVE (NEGATIVE) Acetaminophen ug/mL Ur Barbiturates Screen NEGATIVE (NEGATIVE) Ur Phencyclidine Scrn NEGATIVE (NEGATIVE) Ur Amphetamine Screen NEGATIVE (NEGATIVE) U Methamphetamines Scrn NEGATIVE (NEGATIVE) U Benzodiazepines Scrn NEGATIVE (NEGATIVE) U Cocaine Metab Screen NEGATIVE (NEGATIVE) U Marijuana (THC) Screen NEGATIVE (NEGATIVE) Ethyl Alcohol mg/dL Result Diagrams: 09/29/17 02:40 09/29/17 06:57 *Q Meaningful Use (ADM) - VTE Risk Assess *Q Each Risk Factor Represents 1 Point: Age 41 - 59 years Total Score 1 Point Risk Factors: 1 Each Risk Factor Represents 2 Points: Malignancy (present or previous) Total Score 2 Point Risk Factors: 2 Each Risk Factor Represents 3 Points: None Total Score 3 Point Risk Factors: 0 Each Risk Factor Represents 5 Points: None Total Score 5 Point Risk Factors: 0 Venous Thromboembolism Risk Factor Score *Q: 3 - Problem List (1) Suicidal ideation SNOMED Code(s): 6355488 ICD Code: R45.851 - SUICIDAL IDEATIONS Status: Acute Current Visit: No (2) Hyponatremia SNOMED Code(s): 39158575 ICD Code: E87.1 - HYPO-OSMOLALITY AND HYPONATREMIA Status: Acute Current Visit: Yes (3) Alcohol intoxication SNOMED Code(s): 48628181 ICD Code: F10.129 - ALCOHOL ABUSE WITH INTOXICATION, UNSPECIFIED Status: Acute Current Visit: No (4) Hypomagnesemia SNOMED Code(s): 666080619 ICD Code: E83.42 - HYPOMAGNESEMIA Status: Acute Current Visit: Yes (5) Severe protein-calorie malnutrition SNOMED Code(s): 218708084 ICD Code: E43 - UNSPECIFIED SEVERE PROTEIN-CALORIE MALNUTRITION Status: Acute Current Visit: Yes (6) Cachexia SNOMED Code(s): 143855718 ICD Code: R64 - CACHEXIA Status: Acute Current Visit: Yes (7) Squamous cell cancer of hypopharynx SNOMED Code(s): 61134434 ICD Code: C13.9 - MALIGNANT NEOPLASM OF HYPOPHARYNX, UNSPECIFIED Status: Chronic Current Visit: Yes (8) Alcohol abuse SNOMED Code(s): 18537853 ICD Code: F10.10 - ALCOHOL ABUSE, UNCOMPLICATED Status: Acute Current Visit: No (9) Depression SNOMED Code(s): 08918961 ICD Code: F32.9 - MAJOR DEPRESSIVE DISORDER, SINGLE EPISODE, UNSPECIFIED Status: Acute Current Visit: No (10) Self-care deficit in patient living alone SNOMED Code(s): 29962964 ICD Code: R46.89 - OTHER SYMPTOMS AND SIGNS INVOLVING APPEARANCE AND BEHAVIOR Status: Acute Current Visit: Yes (11) HTN (hypertension) SNOMED Code(s): 91823788 ICD Code: I10 - ESSENTIAL (PRIMARY) HYPERTENSION Status: Chronic Current Visit: Yes Qualifiers: Hypertension type: essential hypertension Qualified Code(s): I10 - Essential (primary) hypertension (12) Tobacco abuse SNOMED Code(s): 794992491 ICD Code: Z72.0 - TOBACCO USE Status: Chronic Current Visit: Yes Problem List Initiated/Reviewed/Updated: Yes Orders Last 24hrs: Active Orders 24 hr Category Date Time Status Admission Status [Patient Status] [ADT] Stat ADT 09/29/17 05:12 Active CIWAA Assessment [RC] Q4H Care 09/29/17 06:42 Active Regular Diet [DIET] Diet 09/29/17 Breakfast Active CXR [Chest 1V Frontal] [CR] Stat Exams 09/29/17 04:50 Taken CULTURE URINE [RM] Stat Lab 09/29/17 04:10 Ordered DRUG SCREEN, URINE [URCHEM] Stat Lab 09/29/17 04:10 Ordered UA W/MICROSCOPIC [URIN] Stat Lab 09/29/17 04:10 Ordered Folic Acid Med 09/30/17 09:00 Active 1 mg SUBCUT DAILY LORazepam [Ativan] Med 09/29/17 06:42 Active See Protocol IVPUSH Q4H PRN Sodium Chloride 0.9% with KCl [Normal Saline with 40 Med 09/29/17 04:00 Active mEq KCl] 1,000 ml IV ASDIRECTED Thiamine [Vitamin B-1] 100 mg Med 09/30/17 09:00 Active Sodium Chloride 0.9% [Normal Saline] 100 ml IV DAILY Medication Orders Folic Acid (Folic Acid) 1 mg SUBCUT DAILY NELIDA Potassium Chloride/Sodium Chloride (Normal Saline With 40 Meq Kcl) 1,000 mls @ 125 mls/hr IV ASDIRECTED NELIDA Last Admin: 09/29/17 04:38 Dose: 125 mls/hr Thiamine HCl 100 mg/ Sodium (Chloride) 101 mls @ 202 mls/hr IV DAILY NELIDA Lorazepam (Ativan) 0 mg IVPUSH Q4H PRN; Protocol PRN Reason: Other Assessment/Plan Comment:: This 57 year old male dmitted with suicidal ideation, needing medical clearance prior to being transferred to inpatient psychiatric care. 1. Suicidal ideation: Continues to state he wants to hurt himself and has a plan. Close monitoring and 1:1 sitter 2. Hyponatremia: Likely secondary to alcohol abuse and poor nutrition. Na increased to 132 this morning. Will stop IVFs now and repeat this afternoon. 3. Hypomagnesemia/Hypokalemia: Mg 0.9, replace with 4 gm IV now. K+ 3.2, IVFs currently has 40 KCL. Monitor this afternoon. 4. Protein-calorie malnutrition: Consult network admin for tueb feedings. Will restart per her recommendations. Monitor closely for re-feeding syndrome. Monitor electrolytes, including phosphorous. Will replace, 2.7 today. recheck in am. Will also place on telemetry to monitor for arrhythmias. 5. Black stools: will obtained Hemoccult of stool. Protonix 40 mg IV Q 12hr. 6. HTN: Currently slightly hypotensive. Monitor, hold Lisinopril for now. 7. Tobacco abuse: Continues to smoke against being highly encouraged to stop. Will place nicotine patch. VTE prophylaxis: reports "very black" stools. Will hold pharmacologic therapy for now, check hemoccult. If negative will need Lovenox. SCDs for now.
[2017-09-29] MEDS ORDERED: Magnesium Sulfate/Water 4 GM in Premix Bag 1 BAG IV ONE (09:27)
[2017-09-29] MEDS ORDERED: Acetaminophen 325 MG Tab PO PRN (09:33)
[2017-09-29] MEDS ORDERED: Ondansetron 4 MG/2 ML SDV IVPUSH PRN (09:33)
[2017-09-29] MEDS ORDERED: Calcium Gluconate 10% 1 GM/10 ML SDV IVPUSH ONE (09:48)
[2017-09-29] MEDS: Pantoprazole 40 MG Vial IVPUSH SCH ×2 (10:02→21:51)
--- NOTE | 2017-09-29 10:07 | CR ---
EXAM DATE: 09/29/17 PATIENT'S AGE: 57 Patient: MEG ADAIR Facility: [place], [place] Site . Site : [id number] Study: XRay Chest [id number]/31/2018 5:12:06 AM Ordering Physician: Truman Rhodes Final Report: INDICATION: Shortness of Breath, Cough TECHNIQUE: Chest radiograph 1 view COMPARISON: 05/23/2017 FINDINGS: Mediastinum: The heart silhouette is normal in size and morphology. The mediastinum is normal in appearance. A left Port-A-Cath is noted without interval change. Lungs: Both lungs are unremarkable in appearance. No sign of pleural effusion seen. No pneumothorax is identified. Bones and soft tissue: Unremarkable for age. IMPRESSION: 1. No acute cardiopulmonary disease is seen. Dictated by Stewart Morales MD @ 09/29/2017 5:22:30 AM Dictated by: Stewart Morales MD @ 09/29/2017 05:22:36 (Electronic Signature) Report Signed by Proxy. HOLLY
[2017-09-29] MEDS: Nicotine 14 MG/24 Hr Patch TRDERM SCH (11:37)
[2017-09-29] MEDS ORDERED: Phosphorus #1 250 MG Tab PO SCH (12:00)
[2017-09-29 13:46] LABS: CHLORIDE,CL 104 mmol/L (98-107); SODIUM,NA 136 mmol/L (136-148)
[2017-09-29] MEDS ORDERED: Scopolamine 1.5 MG Transdermal Patch TRDERM PRN (15:57)
[2017-09-29] MEDS: Phosphorus #1 250 MG Tab GTUBE SCH (17:03)
[2017-09-30] MEDS: Phosphorus #1 250 MG Tab GTUBE SCH ×2 (00:10→06:27)
[2017-09-30] MEDS ORDERED: Simethicone 80 MG Tab.Chew PO PRN (06:30)
--- NOTE | 2017-09-30 06:37 | PCM.PN ---
- General Info Date of Service: 09/30/17 - Review of Systems Systems Review Comment:: feeling better, still wanting treatment for depression and ETOH abuse - Patient Data Vitals - Most Recent: Last Vital Signs Temp 37.2 C 09/30/17 04:00 Pulse 85 09/30/17 04:00 Resp 20 09/30/17 04:00 BP 140/91 H 09/30/17 04:00 Pulse Ox 96 09/30/17 04:00 Weight - Most Recent: 60.5 kg I&O - Last 24 Hours: Intake & Output 09/29/17 09/29/17 09/30/17 14:59 22:59 06:59 Intake Total 9053 747 6546 Output Total 1750 225 760 Balance -495 389 256 Lab Results Last 24 Hours: Laboratory Results - last 24 hr 09/29/17 09/29/17 09/30/17 Range/Units 06:57 13:13 04:55 WBC 4.92 (4.0-11.0) K/uL RBC 3.84 L (4.50-5.90) M/uL Hgb 12.5 L (13.0-17.0) g/dL Hct 35.7 L (38.0-50.0) % MCV 93.0 (80.0-98.0) fL MCH 32.6 H (27.0-32.0) pg MCHC 35.0 (31.0-37.0) g/dL RDW Std Deviation 43.9 (28.0-62.0) fl RDW Coeff of Adonay 13 (11.0-15.0) % Plt Count 122 L (150-400) K/uL MPV 10.20 (7.40-12.00) fL Neut % (Auto) 76.1 (48.0-80.0) % Lymph % (Auto) 12.6 L (16.0-40.0) % [place] % (Auto) 8.5 (0.0-15.0) % Eos % (Auto) 2.6 (0.0-7.0) % Baso % (Auto) 0.2 (0.0-1.5) % Neut # (Auto) 3.7 (1.4-5.7) K/uL Lymph # (Auto) 0.6 (0.6-2.4) K/uL [place] # (Auto) 0.4 (0.0-0.8) K/uL Eos # (Auto) 0.1 (0.0-0.7) K/uL Baso # (Auto) 0.0 (0.0-0.1) K/uL Nucleated RBC % 0.0 /100WBC Nucleated RBCs # 0 K/uL Sodium 132 L 136 (136-148) mmol/L Potassium 3.2 L 4.2 (3.5-5.1) mmol/L Chloride 99 104 (98-107) mmol/L Carbon Dioxide 19.5 L 19.9 L (21.0-32.0) mmol/L BUN 7 6 L (7.0-18.0) mg/dL Creatinine 0.7 L 0.7 L (0.8-1.3) mg/dL Est Cr Clr Drug Dosing 102.03 102.03 mL/min Estimated GFR (MDRD) > 60.0 > 60.0 ml/min Glucose 90 96 (74-106) mg/dL Calcium 7.3 L 7.6 L (8.5-10.1) mg/dL Phosphorus 2.7 (2.6-4.7) mg/dL Magnesium 0.9 L 2.4 H (1.5-2.0) mg/dL 09/30/17 Range/Units 04:55 WBC (4.0-11.0) K/uL RBC (4.50-5.90) M/uL Hgb (13.0-17.0) g/dL Hct (38.0-50.0) % MCV (80.0-98.0) fL MCH (27.0-32.0) pg MCHC (31.0-37.0) g/dL RDW Std Deviation (28.0-62.0) fl RDW Coeff of Adonay (11.0-15.0) % Plt Count (150-400) K/uL MPV (7.40-12.00) fL Neut % (Auto) (48.0-80.0) % Lymph % (Auto) (16.0-40.0) % [place] % (Auto) (0.0-15.0) % Eos % (Auto) (0.0-7.0) % Baso % (Auto) (0.0-1.5) % Neut # (Auto) (1.4-5.7) K/uL Lymph # (Auto) (0.6-2.4) K/uL [place] # (Auto) (0.0-0.8) K/uL Eos # (Auto) (0.0-0.7) K/uL Baso # (Auto) (0.0-0.1) K/uL Nucleated RBC % /100WBC Nucleated RBCs # K/uL Sodium (136-148) mmol/L Potassium (3.5-5.1) mmol/L Chloride (98-107) mmol/L Carbon Dioxide (21.0-32.0) mmol/L BUN (7.0-18.0) mg/dL Creatinine (0.8-1.3) mg/dL Est Cr Clr Drug Dosing mL/min Estimated GFR (MDRD) ml/min Glucose (74-106) mg/dL Calcium (8.5-10.1) mg/dL Phosphorus 3.6 (2.6-4.7) mg/dL Magnesium (1.5-2.0) mg/dL Med Orders - Current: Current Medications Acetaminophen (Tylenol) 650 mg PO Q4H PRN PRN Reason: Pain (mild 1-3) Folic Acid (Folic Acid) 1 mg SUBCUT DAILY [facility] Thiamine HCl 100 mg/ Sodium (Chloride) 101 mls @ 202 mls/hr IV DAILY [facility] Lorazepam (Ativan) 0 mg IVPUSH Q4H PRN; Protocol PRN Reason: Other Nicotine (Habitrol) 14 mg TRDERM DAILY [facility] Last Admin: 09/29/17 11:37 Dose: 14 mg Ondansetron HCl (Zofran) 4 mg IVPUSH Q4H PRN PRN Reason: Nausea Last Admin: 09/29/17 14:31 Dose: 4 mg Pantoprazole Sodium (Protonix Iv) 40 mg IVPUSH Q12H [facility] Last Admin: 09/29/17 21:51 Dose: 40 mg Scopolamine (Transderm-Scop) 1.5 mg TRDERM Q72H PRN PRN Reason: secretions Last Admin: 09/29/17 16:08 Dose: 1.5 mg Simethicone (Simethicone) 80 mg PO Q6H PRN PRN Reason: Gas Discontinued Medications Calcium Gluconate (Calcium Gluconate) 1 gm IVPUSH ONETIME ONE Stop: 09/29/17 09:49 Last Admin: 09/29/17 10:03 Dose: 1 gm Multivitamins/Minerals 10 ml/Thiamine HCl 100 mg/ Folic Acid 1 mg/ Sodium Chloride 1,011.2 mls @ 999 mls/hr IV ONETIME ONE Stop: 09/29/17 03:34 Last Admin: 09/29/17 03:26 Dose: 999 mls/hr Sodium Chloride (Normal Saline) 1,000 mls @ 999 mls/hr IV .Bolus ONE Stop: 09/29/17 04:02 Last Admin: 09/29/17 03:05 Dose: 999 mls/hr Potassium Chloride/Sodium Chloride (Normal Saline With 40 Meq Kcl) 1,000 mls @ 125 mls/hr IV ASDIRECTED [facility] Last Admin: 09/29/17 04:38 Dose: 125 mls/hr Magnesium Sulfate 4 gm/ Premix 100 mls @ 50 mls/hr IV ONETIME ONE Stop: 09/29/17 11:26 Last Admin: 09/29/17 10:11 Dose: 50 mls/hr Ketorolac Tromethamine (Toradol) 60 mg IM ONETIME ONE Stop: 09/29/17 02:34 Last Admin: 09/29/17 03:01 Dose: Not Given Ketorolac Tromethamine (Toradol) 30 mg IVPUSH ONETIME ONE Stop: 09/29/17 02:49 Last Admin: 09/29/17 02:57 Dose: 30 mg Sodium Phosphate (Neutra-Phos) 250 mg PO QID [facility] Last Admin: 09/29/17 11:36 Dose: 250 mg Sodium Phosphate (Neutra-Phos) 250 mg GTUBE QID [facility] Last Admin: 09/30/17 06:27 Dose: Not Given - Exam General: Alert, Oriented Lungs: Clear to Auscultation, Normal Respiratory Effort Cardiovascular: Regular Rate, Regular Rhythm GI/Abdominal Exam: Normal Bowel Sounds, Soft, Non-Tender, No Distention Extremities: Non-Tender, No Pedal Edema Skin: Warm, Dry, Intact Neurological: No New Focal Deficit - Problem List Review Problem List Initiated/Reviewed/Updated: Yes - My Orders Last 24 Hours: My Active Orders 09/29/17 06:42 CIWAA Assessment [RC] Q4H LORazepam [Ativan] See Protocol IVPUSH Q4H PRN 09/30/17 05:11 BASIC METABOLIC PANEL,BMP [CHEM] AM MAGNESIUM [CHEM] AM 09/30/17 06:30 Simethicone 80 mg PO Q6H PRN 09/30/17 09:00 Folic Acid 1 mg SUBCUT DAILY Thiamine [Vitamin B-1] 100 mg Sodium Chloride 0.9% [Normal Saline] 100 ml IV DAILY 10/01/17 05:11 BASIC METABOLIC PANEL,BMP [CHEM] AM MAGNESIUM [CHEM] AM 10/02/17 05:11 BASIC METABOLIC PANEL,BMP [CHEM] AM MAGNESIUM [CHEM] AM 10/03/17 05:11 BASIC METABOLIC PANEL,BMP [CHEM] AM MAGNESIUM [CHEM] AM 10/04/17 05:11 MAGNESIUM [CHEM] AM - Plan Plan:: This 57 year old male admitted with suicidal ideation, needing medical clearance prior to being transferred to inpatient psychiatric care. Suicidal ideation: Close monitoring and 1:1 sitter Protein-calorie malnutrition: started tube feedings, monitoring for refeeding syndrome Black stools: will obtained Hemoccult of stool. Protonix 40 mg IV Q 12hr. ETOH abuse: on CIWA protocol, thiamin and folic acid Tobacco abuse: on nicotine patch. VTE: SCDs
[2017-09-30 06:43] LABS: CHLORIDE,CL 100 mmol/L (98-107); SODIUM,NA 134 mmol/L (136-148)
[2017-09-30] MEDS ORDERED: Magnesium Sulfate/Water 2 GM in Premix Bag 1 BAG IV ONE (07:35)
[2017-09-30] MEDS: Folic Acid 50 MG/10 ML MDV SUBCUT SCH (08:22)
[2017-09-30] MEDS: Nicotine 14 MG/24 Hr Patch TRDERM SCH (08:23)
[2017-09-30] MEDS: Pantoprazole 40 MG Vial IVPUSH SCH ×2 (09:31→21:15)
[2017-09-30] MEDS: Thiamine 100 MG in Sodium Chloride 0.9% 100 ML IV SCH (09:37)
[2017-10-01 06:21] LABS: CHLORIDE,CL 101 mmol/L (98-107); SODIUM,NA 134 mmol/L (136-148)
[2017-10-01] MEDS: Pantoprazole 40 MG Vial IVPUSH SCH ×2 (08:47→21:04)
[2017-10-01] MEDS: Thiamine 100 MG in Sodium Chloride 0.9% 100 ML IV SCH (08:50)
[2017-10-01] MEDS: Nicotine 14 MG/24 Hr Patch TRDERM SCH (08:51)
[2017-10-01] MEDS: Folic Acid 50 MG/10 ML MDV SUBCUT SCH (08:52)
[2017-10-01] MEDS ORDERED: Magnesium Sulfate/Water 2 GM in Premix Bag 1 BAG IV ONE (11:17)
--- NOTE | 2017-10-01 11:27 | PCM.PN ---
- General Info Date of Service: 10/01/17 - Review of Systems Systems Review Comment:: no new complaints - Patient Data Vitals - Most Recent: Last Vital Signs Temp 36.8 C 10/01/17 07:32 Pulse 88 10/01/17 07:32 Resp 16 10/01/17 07:32 BP 124/90 10/01/17 07:32 Pulse Ox 96 10/01/17 07:32 Weight - Most Recent: 60 kg I&O - Last 24 Hours: Intake & Output 09/30/17 10/01/17 10/01/17 22:59 06:59 14:59 Intake Total 1076 1496 Output Total 500 600 Balance 576 896 Lab Results Last 24 Hours: Laboratory Results - last 24 hr 10/01/17 10/01/17 Range/Units 05:43 05:43 WBC 4.22 (4.0-11.0) K/uL RBC 3.84 L (4.50-5.90) M/uL Hgb 12.5 L (13.0-17.0) g/dL Hct 35.9 L (38.0-50.0) % MCV 93.5 (80.0-98.0) fL MCH 32.6 H (27.0-32.0) pg MCHC 34.8 (31.0-37.0) g/dL RDW Std Deviation 43.8 (28.0-62.0) fl RDW Coeff of Adonay 13 (11.0-15.0) % Plt Count 121 L (150-400) K/uL MPV 10.50 (7.40-12.00) fL Neut % (Auto) 61.6 (48.0-80.0) % Lymph % (Auto) 19.4 (16.0-40.0) % [place] % (Auto) 12.3 (0.0-15.0) % Eos % (Auto) 6.2 (0.0-7.0) % Baso % (Auto) 0.5 (0.0-1.5) % Neut # (Auto) 2.6 (1.4-5.7) K/uL Lymph # (Auto) 0.8 (0.6-2.4) K/uL [place] # (Auto) 0.5 (0.0-0.8) K/uL Eos # (Auto) 0.3 (0.0-0.7) K/uL Baso # (Auto) 0.0 (0.0-0.1) K/uL Nucleated RBC % 0.0 /100WBC Nucleated RBCs # 0 K/uL Sodium 134 L (136-148) mmol/L Potassium 4.2 (3.5-5.1) mmol/L Chloride 101 (98-107) mmol/L Carbon Dioxide 27.0 (21.0-32.0) mmol/L BUN 13 (7.0-18.0) mg/dL Creatinine 0.7 L (0.8-1.3) mg/dL Est Cr Clr Drug Dosing 101.19 mL/min Estimated GFR (MDRD) > 60.0 ml/min Glucose 100 (74-106) mg/dL Calcium 8.4 L (8.5-10.1) mg/dL Phosphorus 3.8 (2.6-4.7) mg/dL Magnesium 1.4 L (1.5-2.0) mg/dL Carlos Results Last 24 Hours: Microbiology 09/29/17 04:10 Urine Culture - Final Urine, Clean Catch MIXED ALETHA 1,000-10,000 CFU/ML 09/30/17 06:45 Influenza Type A Antigen Screen - Final Nasopharyngeal Swab NEGATIVE INFLUENZA A VIRUS AG Influenza Type B Antigen Screen - Final NEGATIVE INFLUENZA B VIRUS AG 09/30/17 04:43 Stool Occult Blood (CARLOS) - Final Stool / Feces NEGATIVE OCCULT BLOOD Med Orders - Current: Current Medications Acetaminophen (Tylenol) 650 mg PO Q4H PRN PRN Reason: Pain (mild 1-3) Folic Acid (Folic Acid) 1 mg SUBCUT DAILY [facility] Last Admin: 10/01/17 08:52 Dose: 1 mg Heparin Sodium (Porcine) (Heparin Sodium) 5,000 units SUBCUT Q8H [facility] Thiamine HCl 100 mg/ Sodium (Chloride) 101 mls @ 202 mls/hr IV DAILY [facility] Last Admin: 10/01/17 08:50 Dose: 202 mls/hr Lorazepam (Ativan) 0 mg IVPUSH Q4H PRN; Protocol PRN Reason: Other Nicotine (Habitrol) 14 mg TRDERM DAILY [facility] Last Admin: 10/01/17 08:51 Dose: 14 mg Ondansetron HCl (Zofran) 4 mg IVPUSH Q4H PRN PRN Reason: Nausea Last Admin: 09/29/17 14:31 Dose: 4 mg Pantoprazole Sodium (Protonix Iv) 40 mg IVPUSH Q12H [facility] Last Admin: 10/01/17 08:47 Dose: 40 mg Scopolamine (Transderm-Scop) 1.5 mg TRDERM Q72H PRN PRN Reason: secretions Last Admin: 09/29/17 16:08 Dose: 1.5 mg Simethicone (Simethicone) 80 mg PO Q6H PRN PRN Reason: Gas Discontinued Medications Calcium Gluconate (Calcium Gluconate) 1 gm IVPUSH ONETIME ONE Stop: 09/29/17 09:49 Last Admin: 09/29/17 10:03 Dose: 1 gm Multivitamins/Minerals 10 ml/Thiamine HCl 100 mg/ Folic Acid 1 mg/ Sodium Chloride 1,011.2 mls @ 999 mls/hr IV ONETIME ONE Stop: 09/29/17 03:34 Last Admin: 09/29/17 03:26 Dose: 999 mls/hr Sodium Chloride (Normal Saline) 1,000 mls @ 999 mls/hr IV .Bolus ONE Stop: 09/29/17 04:02 Last Admin: 09/29/17 03:05 Dose: 999 mls/hr Potassium Chloride/Sodium Chloride (Normal Saline With 40 Meq Kcl) 1,000 mls @ 125 mls/hr IV ASDIRECTED [facility] Last Admin: 09/29/17 04:38 Dose: 125 mls/hr Magnesium Sulfate 4 gm/ Premix 100 mls @ 50 mls/hr IV ONETIME ONE Stop: 09/29/17 11:26 Last Admin: 09/29/17 10:11 Dose: 50 mls/hr Magnesium Sulfate 2 gm/ Premix 50 mls @ 50 mls/hr IV ONETIME ONE Stop: 09/30/17 08:34 Last Admin: 09/30/17 08:22 Dose: 50 mls/hr Ketorolac Tromethamine (Toradol) 60 mg IM ONETIME ONE Stop: 09/29/17 02:34 Last Admin: 09/29/17 03:01 Dose: Not Given Ketorolac Tromethamine (Toradol) 30 mg IVPUSH ONETIME ONE Stop: 09/29/17 02:49 Last Admin: 09/29/17 02:57 Dose: 30 mg Sodium Phosphate (Neutra-Phos) 250 mg PO QID [facility] Last Admin: 09/29/17 11:36 Dose: 250 mg Sodium Phosphate (Neutra-Phos) 250 mg GTUBE QID [facility] Last Admin: 09/30/17 06:27 Dose: Not Given - Exam General: Alert, Cooperative, No Acute Distress Lungs: Clear to Auscultation, Normal Respiratory Effort Cardiovascular: Regular Rate, Regular Rhythm GI/Abdominal Exam: Soft, Non-Tender Extremities: No Pedal Edema Skin: Warm, Dry, Intact Neurological: No New Focal Deficit - Problem List Review Problem List Initiated/Reviewed/Updated: Yes - My Orders Last 24 Hours: My Active Orders 10/01/17 11:17 Magnesium Sulfate/Water [Magnesium Sulfate 2 GM in Water 50 ML] 2 gm Premix Bag 1 bag IV ONETIME 10/01/17 11:30 Heparin Sodium 5,000 units SUBCUT Q8H 10/02/17 05:11 BASIC METABOLIC PANEL,BMP [CHEM] AM MAGNESIUM [CHEM] AM 10/03/17 05:11 BASIC METABOLIC PANEL,BMP [CHEM] AM MAGNESIUM [CHEM] AM 10/04/17 05:11 MAGNESIUM [CHEM] AM - Plan Plan:: This 57 year old male admitted with suicidal ideation, needing medical clearance prior to being transferred to inpatient psychiatric care. Suicidal ideation: Close monitoring and 1:1 sitter Protein-calorie malnutrition: started tube feedings, monitoring for refeeding syndrome Hypomagnesia: replacing ETOH abuse: on CIWA protocol, thiamin and folic acid Tobacco abuse: on nicotine patch. VTE: heparin
[2017-10-01] MEDS: Heparin Sodium 5,000 Units/ML Vial SUBCUT SCH ×2 (12:08→18:43)
[2017-10-01] MEDS ORDERED: Diphenhydramine/Lidocaine/Nystatin Suspension 237 ML Bottle PO PRN (13:16)
[2017-10-02] MEDS: Heparin Sodium 5,000 Units/ML Vial SUBCUT SCH ×2 (03:32→11:31)
[2017-10-02 07:09] LABS: CHLORIDE,CL 100 mmol/L (98-107); SODIUM,NA 133 mmol/L (136-148)
[2017-10-02 08:00] VITALS: BP 108/81
[2017-10-02] MEDS: Pantoprazole 40 MG Vial IVPUSH SCH (09:02)
[2017-10-02] MEDS: Folic Acid 50 MG/10 ML MDV SUBCUT SCH (09:03)
[2017-10-02] MEDS: Thiamine 100 MG in Sodium Chloride 0.9% 100 ML IV SCH (09:04)
[2017-10-02] MEDS: Nicotine 14 MG/24 Hr Patch TRDERM SCH (09:05)
--- NOTE | 2017-10-02 10:07 | PCM.PN ---
- General Info Date of Service: 10/02/17 - Review of Systems Systems Review Comment:: no new complaints - Patient Data Vitals - Most Recent: Last Vital Signs Temp 36.6 C 10/02/17 08:00 Pulse 88 10/02/17 08:00 Resp 17 10/02/17 08:00 BP 108/81 10/02/17 08:00 Pulse Ox 98 10/02/17 08:00 Weight - Most Recent: 61.462 kg I&O - Last 24 Hours: Intake & Output 10/01/17 10/02/17 10/02/17 22:59 06:59 14:59 Intake Total 1650 1368 Output Total 420 325 Balance 1230 1043 Lab Results Last 24 Hours: Laboratory Results - last 24 hr 10/02/17 10/02/17 Range/Units 06:48 06:48 WBC 3.74 L (4.0-11.0) K/uL RBC 3.87 L (4.50-5.90) M/uL Hgb 12.3 L (13.0-17.0) g/dL Hct 36.1 L (38.0-50.0) % MCV 93.3 (80.0-98.0) fL MCH 31.8 (27.0-32.0) pg MCHC 34.1 (31.0-37.0) g/dL RDW Std Deviation 42.6 (28.0-62.0) fl RDW Coeff of Adonay 13 (11.0-15.0) % Plt Count 141 L (150-400) K/uL MPV 10.20 (7.40-12.00) fL Neut % (Auto) 62.3 (48.0-80.0) % Lymph % (Auto) 21.1 (16.0-40.0) % [place] % (Auto) 11.0 (0.0-15.0) % Eos % (Auto) 5.3 (0.0-7.0) % Baso % (Auto) 0.3 (0.0-1.5) % Neut # (Auto) 2.3 (1.4-5.7) K/uL Lymph # (Auto) 0.8 (0.6-2.4) K/uL [place] # (Auto) 0.4 (0.0-0.8) K/uL Eos # (Auto) 0.2 (0.0-0.7) K/uL Baso # (Auto) 0.0 (0.0-0.1) K/uL Nucleated RBC % 0.0 /100WBC Nucleated RBCs # 0 K/uL Sodium 133 L (136-148) mmol/L Potassium 4.4 (3.5-5.1) mmol/L Chloride 100 (98-107) mmol/L Carbon Dioxide 28.9 (21.0-32.0) mmol/L BUN 18 (7.0-18.0) mg/dL Creatinine 0.8 (0.8-1.3) mg/dL Est Cr Clr Drug Dosing 90.70 mL/min Estimated GFR (MDRD) > 60.0 ml/min Glucose 99 (74-106) mg/dL Calcium 8.5 (8.5-10.1) mg/dL Phosphorus 3.4 (2.6-4.7) mg/dL Magnesium 1.7 (1.5-2.0) mg/dL Juan Results Last 24 Hours: Microbiology 09/29/17 04:10 Urine Culture - Final Urine, Clean Catch MIXED ALETHA 1,000-10,000 CFU/ML Med Orders - Current: Current Medications Acetaminophen (Tylenol) 650 mg PO Q4H PRN PRN Reason: Pain (mild 1-3) Diphenhydramine/Nystatin/Lidocaine (Magic Mouthwash) 1 ml PO QID PRN PRN Reason: pain Folic Acid (Folic Acid) 1 mg SUBCUT DAILY [facility] Last Admin: 10/02/17 09:03 Dose: 1 mg Heparin Sodium (Porcine) (Heparin Sodium) 5,000 units SUBCUT Q8H [facility] Last Admin: 10/02/17 03:32 Dose: 5,000 units Thiamine HCl 100 mg/ Sodium (Chloride) 101 mls @ 202 mls/hr IV DAILY [facility] Last Admin: 10/02/17 09:04 Dose: 202 mls/hr Lorazepam (Ativan) 0 mg IVPUSH Q4H PRN; Protocol PRN Reason: Other Nicotine (Habitrol) 14 mg TRDERM DAILY [facility] Last Admin: 10/02/17 09:05 Dose: 14 mg Ondansetron HCl (Zofran) 4 mg IVPUSH Q4H PRN PRN Reason: Nausea Last Admin: 09/29/17 14:31 Dose: 4 mg Pantoprazole Sodium (Protonix Iv) 40 mg IVPUSH Q12H [facility] Last Admin: 10/02/17 09:02 Dose: 40 mg Scopolamine (Transderm-Scop) 1.5 mg TRDERM Q72H PRN PRN Reason: secretions Last Admin: 09/29/17 16:08 Dose: 1.5 mg Simethicone (Simethicone) 80 mg PO Q6H PRN PRN Reason: Gas Discontinued Medications Calcium Gluconate (Calcium Gluconate) 1 gm IVPUSH ONETIME ONE Stop: 09/29/17 09:49 Last Admin: 09/29/17 10:03 Dose: 1 gm Multivitamins/Minerals 10 ml/Thiamine HCl 100 mg/ Folic Acid 1 mg/ Sodium Chloride 1,011.2 mls @ 999 mls/hr IV ONETIME ONE Stop: 09/29/17 03:34 Last Admin: 09/29/17 03:26 Dose: 999 mls/hr Sodium Chloride (Normal Saline) 1,000 mls @ 999 mls/hr IV .Bolus ONE Stop: 09/29/17 04:02 Last Admin: 09/29/17 03:05 Dose: 999 mls/hr Potassium Chloride/Sodium Chloride (Normal Saline With 40 Meq Kcl) 1,000 mls @ 125 mls/hr IV ASDIRECTED [facility] Last Admin: 09/29/17 04:38 Dose: 125 mls/hr Magnesium Sulfate 4 gm/ Premix 100 mls @ 50 mls/hr IV ONETIME ONE Stop: 09/29/17 11:26 Last Admin: 09/29/17 10:11 Dose: 50 mls/hr Magnesium Sulfate 2 gm/ Premix 50 mls @ 50 mls/hr IV ONETIME ONE Stop: 09/30/17 08:34 Last Admin: 09/30/17 08:22 Dose: 50 mls/hr Magnesium Sulfate 2 gm/ Premix 50 mls @ 50 mls/hr IV ONETIME ONE Stop: 10/01/17 12:16 Last Admin: 10/01/17 12:07 Dose: 50 mls/hr Ketorolac Tromethamine (Toradol) 60 mg IM ONETIME ONE Stop: 09/29/17 02:34 Last Admin: 09/29/17 03:01 Dose: Not Given Ketorolac Tromethamine (Toradol) 30 mg IVPUSH ONETIME ONE Stop: 09/29/17 02:49 Last Admin: 09/29/17 02:57 Dose: 30 mg Sodium Phosphate (Neutra-Phos) 250 mg PO QID [facility] Last Admin: 09/29/17 11:36 Dose: 250 mg Sodium Phosphate (Neutra-Phos) 250 mg GTUBE QID [facility] Last Admin: 09/30/17 06:27 Dose: Not Given - Exam General: Alert, Oriented Lungs: Clear to Auscultation, Normal Respiratory Effort Cardiovascular: Regular Rate, Regular Rhythm GI/Abdominal Exam: Soft, Non-Tender, No Distention Extremities: Non-Tender, No Pedal Edema Skin: Warm, Dry, Intact - Problem List Review Problem List Initiated/Reviewed/Updated: Yes - My Orders Last 24 Hours: My Active Orders 10/01/17 11:30 Heparin Sodium 5,000 units SUBCUT Q8H 10/01/17 13:16 Diphenhyd/Lidocaine/Nystatin [Magic Mouthwash] 1 ml PO QID PRN 10/03/17 05:11 BASIC METABOLIC PANEL,BMP [CHEM] AM MAGNESIUM [CHEM] AM 10/04/17 05:11 MAGNESIUM [CHEM] AM - Plan Plan:: This 57 year old male admitted with suicidal ideation, needing medical clearance prior to being transferred to inpatient psychiatric care. Suicidal ideation: Close monitoring and 1:1 sitter, no beds available for psych transfer Protein-calorie malnutrition: started tube feedings, monitoring for refeeding syndrome ETOH abuse: on CIWA protocol, thiamin and folic acid Tobacco abuse: on nicotine patch. VTE prophylaxis: heparin
--- NOTE | 2017-10-02 13:30 | PCM.DCSUM1 ---
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 On admission patient was intoxicated and complained of abdominal pain. Laboratory values significant for Na 126, K+ 3.1, Cl 92, Bicarb 20.3, Protein 6.3, albumin 3.1. Patient was admitted and hydrated with IV fluids. His tube feedings were started and he was placed on protonix for suspected GERD. He was placed on CIWA protocol but did not required much Ativan for withdrawals. He did have improvement of his sodium and resolution of his abdominal pain. Once sober he was no longer suicidal. As patient was hydrated and feedings were restored he felt stronger and no longer felt he needed as much assistance. Today he is requesting discharge home. He has a plan of following up with [facility] tomorrow. He was discharged home with his girlfriend who agrees to help him. - Patient Instructions Diet, Other: tube feeds as directed - Discharge Plan Prescriptions/Med Rec: Omeprazole 20 mg PO BEDTIME #30 cap.sr Home Medications: Home Meds Chlorhexidine Gluconate [Chlorhexidine Gluconate 0.12% Rinse] 118 ml MM TID [History] Omeprazole 20 mg PO BEDTIME #30 cap.sr 10/02/17 [Rx] Patient Handouts: Hyponatremia, [id number] Forms: ED Department Discharge Referrals: PCP,None [Primary Care Provider] - - Patient Data Vitals - Most Recent: Last Vital Signs Temp 36.6 C 10/02/17 08:00 Pulse 88 10/02/17 08:00 Resp 17 10/02/17 08:00 BP 108/81 10/02/17 08:00 Pulse Ox 98 10/02/17 08:00 Weight - Most Recent: 61.462 kg I&O - Last 24 hours: Intake & Output 10/01/17 10/02/17 10/02/17 22:59 06:59 14:59 Intake Total 1650 1368 Output Total 420 325 Balance 1230 1043 Lab Results - Last 24 hrs: Laboratory Results - last 24 hr 10/02/17 10/02/17 Range/Units 06:48 06:48 WBC 3.74 L (4.0-11.0) K/uL RBC 3.87 L (4.50-5.90) M/uL Hgb 12.3 L (13.0-17.0) g/dL Hct 36.1 L (38.0-50.0) % MCV 93.3 (80.0-98.0) fL MCH 31.8 (27.0-32.0) pg MCHC 34.1 (31.0-37.0) g/dL RDW Std Deviation 42.6 (28.0-62.0) fl RDW Coeff of Adonay 13 (11.0-15.0) % Plt Count 141 L (150-400) K/uL MPV 10.20 (7.40-12.00) fL Neut % (Auto) 62.3 (48.0-80.0) % Lymph % (Auto) 21.1 (16.0-40.0) % [place] % (Auto) 11.0 (0.0-15.0) % Eos % (Auto) 5.3 (0.0-7.0) % Baso % (Auto) 0.3 (0.0-1.5) % Neut # (Auto) 2.3 (1.4-5.7) K/uL Lymph # (Auto) 0.8 (0.6-2.4) K/uL [place] # (Auto) 0.4 (0.0-0.8) K/uL Eos # (Auto) 0.2 (0.0-0.7) K/uL Baso # (Auto) 0.0 (0.0-0.1) K/uL Nucleated RBC % 0.0 /100WBC Nucleated RBCs # 0 K/uL Sodium 133 L (136-148) mmol/L Potassium 4.4 (3.5-5.1) mmol/L Chloride 100 (98-107) mmol/L Carbon Dioxide 28.9 (21.0-32.0) mmol/L BUN 18 (7.0-18.0) mg/dL Creatinine 0.8 (0.8-1.3) mg/dL Est Cr Clr Drug Dosing 90.70 mL/min Estimated GFR (MDRD) > 60.0 ml/min Glucose 99 (74-106) mg/dL Calcium 8.5 (8.5-10.1) mg/dL Phosphorus 3.4 (2.6-4.7) mg/dL Magnesium 1.7 (1.5-2.0) mg/dL Med Orders - Current: Current Medications Acetaminophen (Tylenol) 650 mg PO Q4H PRN PRN Reason: Pain (mild 1-3) Diphenhydramine/Nystatin/Lidocaine (Magic Mouthwash) 1 ml PO QID PRN PRN Reason: pain Folic Acid (Folic Acid) 1 mg SUBCUT DAILY [facility] Last Admin: 10/02/17 09:03 Dose: 1 mg Heparin Sodium (Porcine) (Heparin Sodium) 5,000 units SUBCUT Q8H [facility] Last Admin: 10/02/17 11:31 Dose: 5,000 units Thiamine HCl 100 mg/ Sodium (Chloride) 101 mls @ 202 mls/hr IV DAILY [facility] Last Admin: 10/02/17 09:04 Dose: 202 mls/hr Lorazepam (Ativan) 0 mg IVPUSH Q4H PRN; Protocol PRN Reason: Other Nicotine (Habitrol) 14 mg TRDERM DAILY [facility] Last Admin: 10/02/17 09:05 Dose: 14 mg Ondansetron HCl (Zofran) 4 mg IVPUSH Q4H PRN PRN Reason: Nausea Last Admin: 09/29/17 14:31 Dose: 4 mg Pantoprazole Sodium (Protonix Iv) 40 mg IVPUSH Q12H [facility] Last Admin: 10/02/17 09:02 Dose: 40 mg Scopolamine (Transderm-Scop) 1.5 mg TRDERM Q72H PRN PRN Reason: secretions Last Admin: 09/29/17 16:08 Dose: 1.5 mg Simethicone (Simethicone) 80 mg PO Q6H PRN PRN Reason: Gas Discontinued Medications Calcium Gluconate (Calcium Gluconate) 1 gm IVPUSH ONETIME ONE Stop: 09/29/17 09:49 Last Admin: 09/29/17 10:03 Dose: 1 gm Multivitamins/Minerals 10 ml/Thiamine HCl 100 mg/ Folic Acid 1 mg/ Sodium Chloride 1,011.2 mls @ 999 mls/hr IV ONETIME ONE Stop: 09/29/17 03:34 Last Admin: 09/29/17 03:26 Dose: 999 mls/hr Sodium Chloride (Normal Saline) 1,000 mls @ 999 mls/hr IV .Bolus ONE Stop: 09/29/17 04:02 Last Admin: 09/29/17 03:05 Dose: 999 mls/hr Potassium Chloride/Sodium Chloride (Normal Saline With 40 Meq Kcl) 1,000 mls @ 125 mls/hr IV ASDIRECTED [facility] Last Admin: 09/29/17 04:38 Dose: 125 mls/hr Magnesium Sulfate 4 gm/ Premix 100 mls @ 50 mls/hr IV ONETIME ONE Stop: 09/29/17 11:26 Last Admin: 09/29/17 10:11 Dose: 50 mls/hr Magnesium Sulfate 2 gm/ Premix 50 mls @ 50 mls/hr IV ONETIME ONE Stop: 09/30/17 08:34 Last Admin: 09/30/17 08:22 Dose: 50 mls/hr Magnesium Sulfate 2 gm/ Premix 50 mls @ 50 mls/hr IV ONETIME ONE Stop: 10/01/17 12:16 Last Admin: 10/01/17 12:07 Dose: 50 mls/hr Ketorolac Tromethamine (Toradol) 60 mg IM ONETIME ONE Stop: 09/29/17 02:34 Last Admin: 09/29/17 03:01 Dose: Not Given Ketorolac Tromethamine (Toradol) 30 mg IVPUSH ONETIME ONE Stop: 09/29/17 02:49 Last Admin: 09/29/17 02:57 Dose: 30 mg Sodium Phosphate (Neutra-Phos) 250 mg PO QID [facility] Last Admin: 09/29/17 11:36 Dose: 250 mg Sodium Phosphate (Neutra-Phos) 250 mg GTUBE QID [facility] Last Admin: 09/30/17 06:27 Dose: Not Given
== END 2017-10-02 13:44 | disposition home or self-care (01) | DRG 880 ==
LOC: MW.ED 02:10 → MW.ICU 05:12 → OBSVTOIN 09:33 → MW.MS 10-01 06:27
PROVIDERS: ADMIT Internal Medicine; ATTEND Internal Medicine
DX: R45.851 Suicidal ideations (principal); E43 Unspecified severe protein-calorie malnutrition; E87.1 Hypo-osmolality and hyponatremia; R64 Cachexia; D00.08 Carcinoma in situ of pharynx; I10 Essential (primary) hypertension; F10.129 Alcohol abuse with intoxication, unspecified; E83.42 Hypomagnesemia; R46.89 Other symptoms and signs involving appearance and behavior; R10.9 Unspecified abdominal pain; K21.9 Gastro-esophageal reflux disease without esophagitis; F32.9 Major depressive disorder, single episode, unspecified; F17.200 Nicotine dependence, unspecified, uncomplicated; Z79.899 Other long term (current) drug therapy; Z91.11 Patient's noncompliance with dietary regimen
CPT/HCPCS: 36415; 71045; 71045-26; 80048; 80053; 80305; 81001; 82272; 83735; 84100; 84443; 85025; 87086; 87804; 93005; 96365; 96367; 96375; 99285-25; A9270-GY; C9113; G0480; J0610; J1644; J1885; J2405; J3411; J3475; J3480; J7030; J7040

== ENCOUNTER 2017-10-11 21:19 | Emergency (ER) | payer MEDICAID ==
[2017-10-11 21:33] VITALS: BP 123/81
--- NOTE | 2017-10-11 21:47 | EDM.PDOC ---
ED HPI GENERAL MEDICAL PROBLEM - General Chief Complaint: Behavioral/Psych Stated Complaint: THOUGHTS OF SUICIDE Time Seen by Provider: 10/11/17 21:43 - History of Present Illness INITIAL COMMENTS - FREE TEXT/NARRATIVE: HISTORY AND PHYSICAL: History of present illness: Patient's 57-year-old male with advanced cancer who presents here with law enforcement after having spoken with EMS about being depressed EMS was comfortable with patient didn't want to be transported and was not suicidal police brought patient here for evaluation medical screening on arrival here patient does acknowledge that he is depressed as it relates to his advanced disease but that has no suicidal plan is here with his girlfriend after lengthy discussion with patient and girlfriend patient is in agreement as is his girlfriend that they got a fight this and do their best he agrees to safety contract as does his girlfriend he will be being discharged with his girlfriend with a safety contract. Review of systems: As per history of present illness and below otherwise all systems reviewed and negative. Past medical history: As per history of present illness and as reviewed below otherwise noncontributory. Surgical history: As per history of present illness and as reviewed below otherwise noncontributory. Social history: No reported history of drug or alcohol abuse. Family history: As per history of present illness and as reviewed below otherwise noncontributory. Physical exam: HEENT: Atraumatic, normocephalic, pupils reactive, negative for conjunctival pallor or scleral icterus, mucous membranes moist, throat clear, neck supple, nontender, trachea midline. Lungs: Coarse bilaterally, breath sounds equal bilaterally, chest nontender. Heart: S1S2, regular, negative for clicks, rubs, or JVD. Abdomen: Soft, nondistended, nontender. Negative for masses or hepatosplenomegaly. Negative for costovertebral tenderness. Pelvis: Stable nontender. Genitourinary: Deferred. Rectal: Deferred. Extremities: Atraumatic, negative for cords or calf pain. Neurovascular unremarkable. Neuro: Awake, alert, oriented. Cranial nerves II through XII unremarkable. Cerebellum unremarkable. Motor and sensory unremarkable throughout. Exam nonfocal. Diagnostics: Deferred Therapeutics: Deferred Impression: #1 history of advanced cancer #2 depressive episode improved Definitive disposition and diagnosis as appropriate pending reevaluation and review of above. - Related Data Allergies Allergy/AdvReac Type Severity Reaction Status Date / Time dust Allergy Sneezing Uncoded 10/11/17 21:36 Home Meds: Home Meds Chlorhexidine Gluconate [Chlorhexidine Gluconate 0.12% Rinse] 118 ml MM TID [History] Omeprazole 20 mg PO BEDTIME #30 cap.sr 10/02/17 [Rx] Past Medical History - Past Health History Medical/Surgical History: Denies Medical/Surgical History HEENT History: Reports: None Cardiovascular History: Reports: Hypertension Respiratory History: Reports: None Gastrointestinal History: Reports: GERD Other Gastrointestinal History: hernia Genitourinary History: Reports: Other (See Below) Other Genitourinary History: difficulty voiding Musculoskeletal History: Reports: Fracture Other Musculoskeletal History: right leg Neurological History: Reports: Seizure Psychiatric History: Reports: Addiction, Depression, Suicidal Ideation Endocrine/Metabolic History: Reports: None Hematologic History: Reports: None Immunologic History: Reports: None Oncologic (Cancer) History: Reports: Squamous Cell Carcinoma Other Oncologic History: left hypopharynx Dermatologic History: Reports: None - Infectious Disease History Infectious Disease History: Reports: Chicken Pox - Past Surgical History Head Surgeries/Procedures: Reports: None HEENT Surgical History: Reports: None Cardiovascular Surgical History: Reports: None Respiratory Surgical History: Reports: None GI Surgical History: Reports: Hernia, Inguinal Male Surgical History: Reports: None Neurological Surgical History: Reports: None Musculoskeletal Surgical History: Reports: ORIF Other Musculoskeletal Surgeries/Procedures:: ORIF right leg (has hardware) Oncologic Surgical History: Reports: None Dermatological Surgical History: Reports: None Social & Family History - Family History Family Medical History: Noncontributory - Tobacco Use Smoking Status *Q: Current Every Day Smoker Years of Tobacco use: 20 Packs/Tins Daily: 1 - Caffeine Use Caffeine Use: Reports: Soda Caffeine Use Comment: 1 drink each/day - Living Situation & Occupation Living situation: Reports: Single Occupation: Unemployed ED ROS GENERAL - Review of Systems Review Of Systems: ROS reveals no pertinent complaints other than HPI. ED EXAM, GENERAL - Physical Exam Exam: See Below (See dictated) Course - Vital Signs Last Recorded V/S: Last Vital Signs Temp 36.1 C 10/11/17 21:32 Pulse 84 10/11/17 21:32 Resp 16 10/11/17 21:32 BP 123/81 06/12/18 21:32 Pulse Ox 96 10/11/17 21:32 Departure - Departure Time of Disposition: 21:46 Disposition: Home, Self-Care 01 Condition: Good Clinical Impression: Encounter for medical screening examination, Depressive episode, Cancer - Discharge Information Referrals: PCP,None [Primary Care Provider] - Additional Instructions: The following information is given to patients seen in the emergency department who are being discharged to home. This information is to outline your options for follow-up care. We provide all patients seen in our emergency department with a follow-up referral. The need for follow-up, as well as the timing and circumstances, are variable depending upon the specifics of your emergency department visit. If you don't have a primary care physician on staff, we will provide you with a referral. We always advise you to contact your personal physician following an emergency department visit to inform them of the circumstance of the visit and for follow-up with them and/or the need for any referrals to a consulting specialist. The emergency department will also refer you to a specialist when appropriate. This referral assures that you have the opportunity for followup care with a specialist. All of these measure are taken in an effort to provide you with optimal care, which includes your followup. Under all circumstances we always encourage you to contact your private physician who remains a resource for coordinating your care. When calling for followup care, please make the office aware that this follow-up is from your recent emergency room visit. If for any reason you are refused follow-up, please contact the [facility] emergency department at and asked to speak to the emergency department charge nurse. Follow-up [facility] as discussed return as needed as discussed
== END 2017-10-11 22:03 | disposition home or self-care (01) ==
LOC: MW.ED 21:19
DX: F32.9 Major depressive disorder, single episode, unspecified (principal); F17.210 Nicotine dependence, cigarettes, uncomplicated; I10 Essential (primary) hypertension; K21.9 Gastro-esophageal reflux disease without esophagitis; C80.1 Malignant (primary) neoplasm, unspecified; Z79.899 Other long term (current) drug therapy
CPT/HCPCS: 99283; 99284

== ENCOUNTER 2017-10-13 19:38 | Observation (INO) | payer MEDICAID ==
--- NOTE | 2017-10-13 19:55 | EDM.PDOCBH ---
ED HPI GENERAL MEDICAL PROBLEM - General Chief Complaint: Behavioral/Psych Stated Complaint: SUICIDAL Time Seen by Provider: 10/13/17 19:54 Source of Information: Reports: Patient, EMS History Limitations: Reports: No Limitations - History of Present Illness INITIAL COMMENTS - FREE TEXT/NARRATIVE: HISTORY AND PHYSICAL: History of present illness: Patient is a 57-year-old male who is brought to the emergency room by EMS with complaints of suicidal ideation. Patient had called a hot line and reported "I' m dying" and continued to tell them about his depression. They called law enforcement and EMS to conduct a wellness check on this patient. Patient told EMS he has been drinking daily, has not been feeding himself via his G-tube over the past 2 weeks and states, and has an overwhelming feeling of depression. Should states that he was diagnosed with advance throat cancer in April, and since that time has had increased depression and suicidal ideations, but no clear plan. He states he has purposefully been withholding feeding himself through his G-tube. Denies any drug abuse. Denies taking any medications (prescription or OTC) today. Review of systems: As per history of present illness and below otherwise all systems reviewed and negative. Past medical history: As per history of present illness and as reviewed below otherwise noncontributory. Surgical history: As per history of present illness and as reviewed below otherwise noncontributory. Social history: No reported history of drug or alcohol abuse. Family history: As per history of present illness and as reviewed below otherwise noncontributory. Physical exam: General: Alert and oriented 57-year-old male. Appears thin and unkempt. HEENT: Atraumatic, normocephalic, pupils equal and reactive bilaterally, negative for conjunctival pallor or scleral icterus, mucous membranes tachy/dry throat clear, neck supple, nontender, trachea midline. No drooling or trismus noted. No meningeal signs Lungs: Clear to auscultation, breath sounds equal bilaterally, chest nontender. Heart: S1S2, regular rate and rhythm without overt murmur Abdomen: Soft, nondistended, nontender. Feeding tube noted to abdomen. Negative for masses or hepatosplenomegaly. Negative for costovertebral tenderness. Pelvis: Stable nontender. Genitourinary: Deferred. Rectal: Deferred. Skin: Tape residue noted to his abdomen. Intact, warm, dry. No lesions or rashes noted. Extremities: Atraumatic, moves all extremities per self, negative for cords or calf pain. Neurovascular unremarkable. Neuro: Awake, alert, oriented. Cranial nerves II through XII unremarkable. Cerebellum unremarkable. Motor and sensory unremarkable throughout. Exam nonfocal. Notes: Law enforcement was contact to monitor patient as he repeatedly goes back and forth between wanting help and wanting to elope. IV was discontinued as he threatened he was going to elope. 2109: Pat alvares [facility] was consulted on this patient; they are unwilling to take the patient due to his G-tube. They state that this could lead to him "pulling it out and harming himself". 2134: [facility] and Bo Correa, Psychologist, both consulted. Unwilling to take the patient due to his G-tube. 2209: Dr Martinez was consulted on this patient, he will come and see patient. 2224: Dr Martinez is here to see patient. Diagnostics: CBC, CMP, UA, Drug Screen, ETOH, Acetaminophen, Salicilate, Therapeutics: Normal Saline Impression: Depression Suicidal ideation, without definitive plan Plan: Observation Definitive disposition and diagnosis as appropriate pending reevaluation and review of above. Duration: Chronic Location: Reports: Generalized Generalized Pain Score (Numeric/FACES): 8 - Related Data Allergies Allergy/AdvReac Type Severity Reaction Status Date / Time dust Allergy Sneezing Uncoded 10/13/17 19:57 Home Meds: Home Meds Chlorhexidine Gluconate [Chlorhexidine Gluconate 0.12% Rinse] 118 ml MM TID [History] Omeprazole 20 mg PO BEDTIME #30 cap.sr 10/02/17 [Rx] Past Medical History - Past Health History Medical/Surgical History: Denies Medical/Surgical History HEENT History: Reports: None Cardiovascular History: Reports: Hypertension Respiratory History: Reports: None Gastrointestinal History: Reports: GERD Other Gastrointestinal History: hernia Genitourinary History: Reports: Other (See Below) Other Genitourinary History: difficulty voiding Musculoskeletal History: Reports: Fracture Other Musculoskeletal History: right leg Neurological History: Reports: Seizure Psychiatric History: Reports: Addiction, Depression, Suicidal Ideation Endocrine/Metabolic History: Reports: None Hematologic History: Reports: None Immunologic History: Reports: None Oncologic (Cancer) History: Reports: Squamous Cell Carcinoma Other Oncologic History: left hypopharynx Dermatologic History: Reports: None - Infectious Disease History Infectious Disease History: Reports: Chicken Pox - Past Surgical History Head Surgeries/Procedures: Reports: None HEENT Surgical History: Reports: None Cardiovascular Surgical History: Reports: None Respiratory Surgical History: Reports: None GI Surgical History: Reports: Hernia, Inguinal Male Surgical History: Reports: None Neurological Surgical History: Reports: None Musculoskeletal Surgical History: Reports: ORIF Other Musculoskeletal Surgeries/Procedures:: ORIF right leg (has hardware) Oncologic Surgical History: Reports: None Dermatological Surgical History: Reports: None Social & Family History - Family History Family Medical History: Noncontributory - Caffeine Use Caffeine Use: Reports: Soda Caffeine Use Comment: 1 drink each/day - Living Situation & Occupation Living situation: Reports: Single Occupation: Unemployed ED ROS GENERAL - Review of Systems Review Of Systems: ROS reveals no pertinent complaints other than HPI. ED EXAM, BEHAVIORAL HEALTH - Physical Exam Exam: See Below (The dictation) COURSE, BEHAVIORAL HEALTH COMP - Course Vital Signs: Last Vital Signs Temp 98.9 F 10/14/17 11:56 Pulse 85 10/14/17 11:56 Resp 18 10/14/17 11:56 BP 137/80 10/14/17 11:56 Pulse Ox 94 L 10/14/17 11:56 Orders, Labs, Meds: Active Orders 24 hr Category Date Time Status Oxygen Therapy [RC] PRN Care 10/13/17 23:13 Active Up ad Valorie [RC] ASDIRECTED Care 10/13/17 23:13 Active Vital Signs [RC] Q4H Care 10/13/17 23:13 Active DRUG SCREEN, URINE [URCHEM] Stat Lab 10/13/17 22:02 Ordered Morphine Med 10/13/17 23:13 Active 2 mg IVPUSH Q2H PRN Ondansetron [Zofran] Med 10/13/17 23:13 Active 4 mg IVPUSH Q4H PRN Sodium Chloride 0.9% [Normal Saline] 1,000 ml Med 10/13/17 23:15 Active IV ASDIRECTED Sequential Compression Device [OM.PC] Per Unit Routine Oth 10/13/17 23:13 Ordered Medication Orders Sodium Chloride (Normal Saline) 1,000 mls @ 125 mls/hr IV ASDIRECTED NELIDA Last Admin: 10/14/17 07:33 Dose: 125 mls/hr Infusion: 10/14/17 07:33 Dose: 125 mls/hr Admin: 10/14/17 00:17 Dose: 125 mls/hr Morphine Sulfate (Morphine) 2 mg IVPUSH Q2H PRN PRN Reason: Pain (severe 7-10) Stop: 10/14/17 23:15 Last Admin: 10/14/17 05:03 Dose: 2 mg Admin: 10/14/17 00:18 Dose: 2 mg Ondansetron HCl (Zofran) 4 mg IVPUSH Q4H PRN PRN Reason: Nausea Last Admin: 10/14/17 09:17 Dose: 4 mg Admin: 10/14/17 00:20 Dose: 4 mg Laboratory Tests 10/13/17 10/13/17 10/13/17 Range/Units 20:16 20:16 22:02 WBC 4.77 (4.0-11.0) K/uL RBC 4.55 (4.50-5.90) M/uL Hgb 14.9 (13.0-17.0) g/dL Hct 40.9 (38.0-50.0) % MCV 89.9 (80.0-98.0) fL MCH 32.7 H (27.0-32.0) pg MCHC 36.4 (31.0-37.0) g/dL RDW Std Deviation 42.7 (28.0-62.0) fl RDW Coeff of Adonay 13 (11.0-15.0) % Plt Count 345 (150-400) K/uL MPV 8.50 (7.40-12.00) fL Neut % (Auto) 68.4 (48.0-80.0) % Lymph % (Auto) 18.0 (16.0-40.0) % Reeves % (Auto) 11.3 (0.0-15.0) % Eos % (Auto) 1.7 (0.0-7.0) % Baso % (Auto) 0.6 (0.0-1.5) % Neut # (Auto) 3.3 (1.4-5.7) K/uL Lymph # (Auto) 0.9 (0.6-2.4) K/uL Reeves # (Auto) 0.5 (0.0-0.8) K/uL Eos # (Auto) 0.1 (0.0-0.7) K/uL Baso # (Auto) 0.0 (0.0-0.1) K/uL Nucleated RBC % 0.0 /100WBC Nucleated RBCs # 0 K/uL Sodium 132 L (136-148) mmol/L Potassium 3.7 (3.5-5.1) mmol/L Chloride 96 L (98-107) mmol/L Carbon Dioxide 23.1 (21.0-32.0) mmol/L BUN 2 L (7.0-18.0) mg/dL Creatinine 0.8 (0.8-1.3) mg/dL Est Cr Clr Drug Dosing 80.32 mL/min Estimated GFR (MDRD) > 60.0 ml/min Glucose 71 L (74-106) mg/dL Calcium 8.7 (8.5-10.1) mg/dL Total Bilirubin 0.2 (0.2-1.0) mg/dL AST 35 (15-37) IU/L ALT 40 (14-63) IU/L Alkaline Phosphatase 73 (46-116) U/L Total Protein 6.9 (6.4-8.2) g/dL Albumin 3.5 (3.4-5.0) g/dL Globulin 3.4 (2.0-3.5) g/dL Albumin/Globulin Ratio 1.0 L (1.3-2.8) TSH 3rd Generation 4.08 H (0.36-3.74) uIU/mL Salicylates 3.1 (0-20) mg/dL Urine Opiates Screen NEGATIVE (NEGATIVE) Ur Oxycodone Screen NEGATIVE (NEGATIVE) Urine Methadone Screen NEGATIVE (NEGATIVE) Acetaminophen 0.0 ug/mL Ur Barbiturates Screen NEGATIVE (NEGATIVE) Ur Phencyclidine Scrn NEGATIVE (NEGATIVE) Ur Amphetamine Screen NEGATIVE (NEGATIVE) U Methamphetamines Scrn NEGATIVE (NEGATIVE) U Benzodiazepines Scrn NEGATIVE (NEGATIVE) U Cocaine Metab Screen NEGATIVE (NEGATIVE) U Marijuana (THC) Screen NEGATIVE (NEGATIVE) Ethyl Alcohol < 3.0 mg/dL Medications Generic Name Dose Route Start Last Admin Trade Name Freq PRN Reason Stop Dose Admin Sodium Chloride 1,000 mls @ 125 mls/hr 10/13/17 23:15 10/14/17 07:33 Normal Saline IV 125 mls/hr ASDIRECTED NELIDA Administration Morphine Sulfate 2 mg 10/13/17 23:13 10/14/17 05:03 Morphine IVPUSH 10/14/17 23:15 2 mg Q2H PRN Administration Pain (severe 7-10) Ondansetron HCl 4 mg 10/13/17 23:13 10/14/17 09:17 Zofran IVPUSH 4 mg Q4H PRN Administration Nausea Discontinued Medications Generic Name Dose Route Start Last Admin Trade Name Freq PRN Reason Stop Dose Admin Omeprazole 20 mg 10/14/17 09:13 10/14/17 09:21 Omeprazole PO 10/14/17 09:14 20 mg ONETIME ONE Administration Departure - Departure Time of Disposition: 22:00 Disposition: Refer to Observation Clinical Impression: Suicidal ideation Depression Qualifiers: Depression Type: other depression Qualified Code(s): F32.89 - Other specified depressive episodes - Discharge Information - My Orders Last 24 Hours: My Active Orders 10/13/17 22:02 DRUG SCREEN, URINE [URCHEM] Stat - Assessment/Plan Last 24 Hours: My Active Orders 10/13/17 22:02 DRUG SCREEN, URINE [URCHEM] Stat
[2017-10-13 20:56] LABS: CHLORIDE,CL 96 mmol/L (98-107); SODIUM,NA 132 mmol/L (136-148)
--- NOTE | 2017-10-13 23:13 | PCM.HP ---
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 The ED provider tried to transfer to psych facility and was refused multiple places due to his g-tube being a strangulation risk. The ED then referred him to admission her. I did admit him recently for dehydration and suicidal ideation. Generalized Pain Score (Numeric/FACES): 8 - Related Data Allergies/Adverse Reactions: Allergies Allergy/AdvReac Type Severity Reaction Status Date / Time dust Allergy Sneezing Uncoded 10/13/17 19:57 Home Medications: Home Meds Chlorhexidine Gluconate [Chlorhexidine Gluconate 0.12% Rinse] 118 ml MM TID [History] Omeprazole 20 mg PO BEDTIME #30 cap.sr 10/02/17 [Rx] Past Medical History - Past Health History Medical/Surgical History: Denies Medical/Surgical History HEENT History: Reports: None Cardiovascular History: Reports: Hypertension Respiratory History: Reports: None Gastrointestinal History: Reports: GERD Other Gastrointestinal History: hernia Genitourinary History: Reports: Other (See Below) Other Genitourinary History: difficulty voiding Musculoskeletal History: Reports: Fracture Other Musculoskeletal History: right leg Neurological History: Reports: Seizure Psychiatric History: Reports: Addiction, Depression, Suicidal Ideation Endocrine/Metabolic History: Reports: None Hematologic History: Reports: None Immunologic History: Reports: None Oncologic (Cancer) History: Reports: Squamous Cell Carcinoma Other Oncologic History: left hypopharynx Dermatologic History: Reports: None - Infectious Disease History Infectious Disease History: Reports: Chicken Pox - Past Surgical History Head Surgeries/Procedures: Reports: None HEENT Surgical History: Reports: None Cardiovascular Surgical History: Reports: None Respiratory Surgical History: Reports: None GI Surgical History: Reports: Hernia, Inguinal Male Surgical History: Reports: None Neurological Surgical History: Reports: None Musculoskeletal Surgical History: Reports: ORIF Other Musculoskeletal Surgeries/Procedures:: ORIF right leg (has hardware) Oncologic Surgical History: Reports: None Dermatological Surgical History: Reports: None Social & Family History - Family History Family Medical History: Noncontributory - Tobacco Use Smoking Status *Q: Current Every Day Smoker Years of Tobacco use: 40 Packs/Tins Daily: 1 - Caffeine Use Caffeine Use: Reports: Soda Caffeine Use Comment: 1 drink each/day - Recreational Drug Use Recreational Drug Use: No - Living Situation & Occupation Living situation: Reports: Single Occupation: Unemployed H&P Review of Systems - Review of Systems: Review Of Systems: ROS reveals no pertinent complaints other than HPI. Exam - Vital Signs Vital Signs: Last Vital Signs Temp 37.3 C 10/13/17 21:45 Pulse 91 10/13/17 21:45 Resp 14 10/13/17 21:45 BP 126/76 10/13/17 21:45 Pulse Ox 95 10/13/17 21:45 Weight: 54.431 kg - Exam General: Alert, Oriented HEENT: Mucosa Moist & [place] Neck: Supple, Trachea Midline Lungs: Clear to Auscultation, Normal Respiratory Effort Cardiovascular: Regular Rate, Regular Rhythm GI/Abdominal Exam: Soft, Non-Tender Extremities: Normal Range of Motion, Non-Tender Skin: Warm, Dry, Intact - Patient Data Lab Results Last 24 hrs: Laboratory Results - last 24 hr 10/13/17 10/13/17 10/13/17 Range/Units 20:16 20:16 22:02 WBC 4.77 (4.0-11.0) K/uL RBC 4.55 (4.50-5.90) M/uL Hgb 14.9 (13.0-17.0) g/dL Hct 40.9 (38.0-50.0) % MCV 89.9 (80.0-98.0) fL MCH 32.7 H (27.0-32.0) pg MCHC 36.4 (31.0-37.0) g/dL RDW Std Deviation 42.7 (28.0-62.0) fl RDW Coeff of Adonay 13 (11.0-15.0) % Plt Count 345 (150-400) K/uL MPV 8.50 (7.40-12.00) fL Neut % (Auto) 68.4 (48.0-80.0) % Lymph % (Auto) 18.0 (16.0-40.0) % Walker % (Auto) 11.3 (0.0-15.0) % Eos % (Auto) 1.7 (0.0-7.0) % Baso % (Auto) 0.6 (0.0-1.5) % Neut # (Auto) 3.3 (1.4-5.7) K/uL Lymph # (Auto) 0.9 (0.6-2.4) K/uL Walker # (Auto) 0.5 (0.0-0.8) K/uL Eos # (Auto) 0.1 (0.0-0.7) K/uL Baso # (Auto) 0.0 (0.0-0.1) K/uL Nucleated RBC % 0.0 /100WBC Nucleated RBCs # 0 K/uL Sodium 132 L (136-148) mmol/L Potassium 3.7 (3.5-5.1) mmol/L Chloride 96 L (98-107) mmol/L Carbon Dioxide 23.1 (21.0-32.0) mmol/L BUN 2 L (7.0-18.0) mg/dL Creatinine 0.8 (0.8-1.3) mg/dL Est Cr Clr Drug Dosing 80.32 mL/min Estimated GFR (MDRD) > 60.0 ml/min Glucose 71 L (74-106) mg/dL Calcium 8.7 (8.5-10.1) mg/dL Total Bilirubin 0.2 (0.2-1.0) mg/dL AST 35 (15-37) IU/L ALT 40 (14-63) IU/L Alkaline Phosphatase 73 (46-116) U/L Total Protein 6.9 (6.4-8.2) g/dL Albumin 3.5 (3.4-5.0) g/dL Globulin 3.4 (2.0-3.5) g/dL Albumin/Globulin Ratio 1.0 L (1.3-2.8) TSH 3rd Generation 4.08 H (0.36-3.74) uIU/mL Salicylates 3.1 (0-20) mg/dL Urine Opiates Screen NEGATIVE (NEGATIVE) Ur Oxycodone Screen NEGATIVE (NEGATIVE) Urine Methadone Screen NEGATIVE (NEGATIVE) Acetaminophen 0.0 ug/mL Ur Barbiturates Screen NEGATIVE (NEGATIVE) Ur Phencyclidine Scrn NEGATIVE (NEGATIVE) Ur Amphetamine Screen NEGATIVE (NEGATIVE) U Methamphetamines Scrn NEGATIVE (NEGATIVE) U Benzodiazepines Scrn NEGATIVE (NEGATIVE) U Cocaine Metab Screen NEGATIVE (NEGATIVE) U Marijuana (THC) Screen NEGATIVE (NEGATIVE) Ethyl Alcohol < 3.0 mg/dL Result Diagrams: 10/13/17 20:16 10/13/17 20:16 Problem List Initiated/Reviewed/Updated: Yes Orders Last 24hrs: Active Orders 24 hr Category Date Time Status DRUG SCREEN, URINE [URCHEM] Stat Lab 10/13/17 22:02 Ordered
[2017-10-14] MEDS: Sodium Chloride 0.9% 1,000 ML IV SCH ×3 (00:17→14:34)
[2017-10-14] MEDS: Morphine 10 MG/ML Syringe IVPUSH PRN ×2 (00:18→05:03)
[2017-10-14] MEDS: Ondansetron 4 MG/2 ML SDV IVPUSH PRN ×2 (00:20→09:17)
[2017-10-14 06:36] LABS: CHLORIDE,CL 101 mmol/L (98-107); SODIUM,NA 134 mmol/L (136-148)
[2017-10-14] MEDS ORDERED: Omeprazole 20 MG Cap.CR PO ONE (09:13)
--- NOTE | 2017-10-14 10:48 | PCM.PN ---
- General Info Date of Service: 10/14/17 Subjective Update: 57M with a hx of stage 4 hypopharyngeal cancer that presented to the ER with suicidal ideation. This morning when asked, he states that he still is suicidal with no active plan in place. A few days ago, he tells me that he tried to kill himself by jumping down a flight of stairs. Because of his underlying illness, he says he feels weak and frustrated. - Review of Systems General: Reports: Other (see hpi) - Patient Data Vitals - Most Recent: Last Vital Signs Temp 37.4 C 10/14/17 08:00 Pulse 101 H 10/14/17 08:00 Resp 16 10/14/17 08:00 BP 122/68 10/14/17 08:00 Pulse Ox 94 L 10/14/17 08:00 Weight - Most Recent: 55.8 kg I&O - Last 24 Hours: Intake & Output 10/13/17 10/14/17 10/14/17 22:59 06:59 14:59 Intake Total 1050 Balance 1050 Lab Results Last 24 Hours: Laboratory Results - last 24 hr 10/13/17 10/13/17 10/13/17 Range/Units 20:16 20:16 22:02 WBC 4.77 (4.0-11.0) K/uL RBC 4.55 (4.50-5.90) M/uL Hgb 14.9 (13.0-17.0) g/dL Hct 40.9 (38.0-50.0) % MCV 89.9 (80.0-98.0) fL MCH 32.7 H (27.0-32.0) pg MCHC 36.4 (31.0-37.0) g/dL RDW Std Deviation 42.7 (28.0-62.0) fl RDW Coeff of Adonay 13 (11.0-15.0) % Plt Count 345 (150-400) K/uL MPV 8.50 (7.40-12.00) fL Neut % (Auto) 68.4 (48.0-80.0) % Lymph % (Auto) 18.0 (16.0-40.0) % Peach % (Auto) 11.3 (0.0-15.0) % Eos % (Auto) 1.7 (0.0-7.0) % Baso % (Auto) 0.6 (0.0-1.5) % Neut # (Auto) 3.3 (1.4-5.7) K/uL Lymph # (Auto) 0.9 (0.6-2.4) K/uL Peach # (Auto) 0.5 (0.0-0.8) K/uL Eos # (Auto) 0.1 (0.0-0.7) K/uL Baso # (Auto) 0.0 (0.0-0.1) K/uL Add Manual Diff Neutrophils % (Manual) (48.0-80.0) % Band Neutrophils % % Lymphocytes % (Manual) (16.0-40.0) % Monocytes % (Manual) (0.0-15.0) % Eosinophils % (Manual) (0.0-7.0) % Basophils % (Manual) (0.0-1.5) % Nucleated RBC % 0.0 /100WBC Absolute Seg Neuts (1.4-5.7) Band Neutrophils # Lymphocytes # (Manual) (0.6-2.4) Monocytes # (Manual) (0.0-0.8) Eosinophils # (Manual) (0.0-0.7) Basophils # (Manual) (0.0-0.1) Nucleated RBCs # 0 K/uL Sodium 132 L (136-148) mmol/L Potassium 3.7 (3.5-5.1) mmol/L Chloride 96 L (98-107) mmol/L Carbon Dioxide 23.1 (21.0-32.0) mmol/L BUN 2 L (7.0-18.0) mg/dL Creatinine 0.8 (0.8-1.3) mg/dL Est Cr Clr Drug Dosing 80.32 mL/min Estimated GFR (MDRD) > 60.0 ml/min Glucose 71 L (74-106) mg/dL Calcium 8.7 (8.5-10.1) mg/dL Total Bilirubin 0.2 (0.2-1.0) mg/dL AST 35 (15-37) IU/L ALT 40 (14-63) IU/L Alkaline Phosphatase 73 (46-116) U/L Total Protein 6.9 (6.4-8.2) g/dL Albumin 3.5 (3.4-5.0) g/dL Globulin 3.4 (2.0-3.5) g/dL Albumin/Globulin Ratio 1.0 L (1.3-2.8) TSH 3rd Generation 4.08 H (0.36-3.74) uIU/mL Salicylates 3.1 (0-20) mg/dL Urine Opiates Screen NEGATIVE (NEGATIVE) Ur Oxycodone Screen NEGATIVE (NEGATIVE) Urine Methadone Screen NEGATIVE (NEGATIVE) Acetaminophen 0.0 ug/mL Ur Barbiturates Screen NEGATIVE (NEGATIVE) Ur Phencyclidine Scrn NEGATIVE (NEGATIVE) Ur Amphetamine Screen NEGATIVE (NEGATIVE) U Methamphetamines Scrn NEGATIVE (NEGATIVE) U Benzodiazepines Scrn NEGATIVE (NEGATIVE) U Cocaine Metab Screen NEGATIVE (NEGATIVE) U Marijuana (THC) Screen NEGATIVE (NEGATIVE) Ethyl Alcohol < 3.0 mg/dL 10/14/17 10/14/17 Range/Units 06:16 06:16 WBC 3.33 L (4.0-11.0) K/uL RBC 3.80 L (4.50-5.90) M/uL Hgb 12.4 L (13.0-17.0) g/dL Hct 34.2 L (38.0-50.0) % MCV 90.0 (80.0-98.0) fL MCH 32.6 H (27.0-32.0) pg MCHC 36.3 (31.0-37.0) g/dL RDW Std Deviation 42.3 (28.0-62.0) fl RDW Coeff of Adonay 13 (11.0-15.0) % Plt Count 274 (150-400) K/uL MPV 8.40 (7.40-12.00) fL Neut % (Auto) (48.0-80.0) % Lymph % (Auto) (16.0-40.0) % Peach % (Auto) (0.0-15.0) % Eos % (Auto) (0.0-7.0) % Baso % (Auto) (0.0-1.5) % Neut # (Auto) (1.4-5.7) K/uL Lymph # (Auto) (0.6-2.4) K/uL Peach # (Auto) (0.0-0.8) K/uL Eos # (Auto) (0.0-0.7) K/uL Baso # (Auto) (0.0-0.1) K/uL Add Manual Diff YES Neutrophils % (Manual) 54 (48.0-80.0) % Band Neutrophils % 2 % Lymphocytes % (Manual) 27 (16.0-40.0) % Monocytes % (Manual) 6 (0.0-15.0) % Eosinophils % (Manual) 5 (0.0-7.0) % Basophils % (Manual) 6 H (0.0-1.5) % Nucleated RBC % 0.0 /100WBC Absolute Seg Neuts 1.8 (1.4-5.7) Band Neutrophils # 0.1 Lymphocytes # (Manual) 0.9 (0.6-2.4) Monocytes # (Manual) 0.2 (0.0-0.8) Eosinophils # (Manual) 0.2 (0.0-0.7) Basophils # (Manual) 0.2 H (0.0-0.1) Nucleated RBCs # 0 K/uL Sodium 134 L (136-148) mmol/L Potassium 4.0 (3.5-5.1) mmol/L Chloride 101 (98-107) mmol/L Carbon Dioxide 22.0 (21.0-32.0) mmol/L BUN 10 (7.0-18.0) mg/dL Creatinine 0.8 (0.8-1.3) mg/dL Est Cr Clr Drug Dosing 82.34 mL/min Estimated GFR (MDRD) > 60.0 ml/min Glucose 71 L (74-106) mg/dL Calcium 8.3 L (8.5-10.1) mg/dL Total Bilirubin (0.2-1.0) mg/dL AST (15-37) IU/L ALT (14-63) IU/L Alkaline Phosphatase (46-116) U/L Total Protein (6.4-8.2) g/dL Albumin (3.4-5.0) g/dL Globulin (2.0-3.5) g/dL Albumin/Globulin Ratio (1.3-2.8) TSH 3rd Generation (0.36-3.74) uIU/mL Salicylates (0-20) mg/dL Urine Opiates Screen (NEGATIVE) Ur Oxycodone Screen (NEGATIVE) Urine Methadone Screen (NEGATIVE) Acetaminophen ug/mL Ur Barbiturates Screen (NEGATIVE) Ur Phencyclidine Scrn (NEGATIVE) Ur Amphetamine Screen (NEGATIVE) U Methamphetamines Scrn (NEGATIVE) U Benzodiazepines Scrn (NEGATIVE) U Cocaine Metab Screen (NEGATIVE) U Marijuana (THC) Screen (NEGATIVE) Ethyl Alcohol mg/dL Med Orders - Current: Current Medications Sodium Chloride (Normal Saline) 1,000 mls @ 125 mls/hr IV ASDIRECTED NELIDA Last Admin: 10/14/17 07:33 Dose: 125 mls/hr Morphine Sulfate (Morphine) 2 mg IVPUSH Q2H PRN PRN Reason: Pain (severe 7-10) Stop: 10/14/17 23:15 Last Admin: 10/14/17 05:03 Dose: 2 mg Ondansetron HCl (Zofran) 4 mg IVPUSH Q4H PRN PRN Reason: Nausea Last Admin: 10/14/17 09:17 Dose: 4 mg Discontinued Medications Omeprazole (Omeprazole) 20 mg PO ONETIME ONE Stop: 10/14/17 09:14 Last Admin: 10/14/17 09:21 Dose: 20 mg - Exam General: Alert, Oriented HEENT: Pupils Equal, Pupils Reactive, EOMI, Mucous Membr. Moist/[place] Neck: Supple Lungs: Clear to Auscultation, Normal Respiratory Effort Cardiovascular: Regular Rate, Regular Rhythm GI/Abdominal Exam: Normal Bowel Sounds, Soft, Non-Tender, No Organomegaly, No Distention, No Abnormal Bruit, No Mass, Pelvis Stable (Male) Exam: No Hernia, Normal Inspection, Normal Prostate, Circumcised Back Exam: Normal Inspection, Full Range of Motion Extremities: Normal Inspection, Normal Range of Motion, Non-Tender, No Pedal Edema, Normal Capillary Refill Skin: Warm, Dry, Intact, Ecchymosis Wound/Incisions: Healing Well Neurological: No New Focal Deficit Psy/Mental Status: Alert, Suicidal Ideation - Problem List Review Problem List Initiated/Reviewed/Updated: Yes - Plan Plan:: Assessment: #1. Suicidal ideation #2. Alcohol abuse #3. Hypopharyngeal cancer #4. Elevated TSH #5. Mild hyponatremia Plan: #1. Consult psychiatry given active SI. Continue with 1:1 monitoring #2. [facility] protocol for alcohol abuse. He tells me that his last drink was yesterday. #3. Elevated TSH. Given his diagnosis of stage 4 cancer, I will leave it to his PCP to investigate further into this and deem if its necessary to start thyroid medication as an outpatient. Currently, he is medically stable requiring psychiatry eval and possible transfer or Discharge pending psychiatry evaluation.
[2017-10-14 16:26] VITALS: BP 122/96
--- NOTE | 2017-10-14 18:00 | PCM.DCSUM1 ---
Discharge Summary - Hospital Course Free Text/Narrative:: Admission date: 10/14/2017 Discharge date: 10/14/2017 Admission Diagnosis: #1. Suicidal ideation #2. Alcohol abuse #3. Hypopharyngeal cancer #4. Elevated TSH #5. Mild hyponatremia Discharge diagnosis: #1. Depression #2. Alcohol abuse - no significant signs of acute withdrawal #3. Stage 4 hypopharyngeal cancer #4. Elevated TSH Hospital course: 57M that presented to the ER via EMS secondary to calling a suicidal hotline expressing suicidal ideation. He was admitted to our service as other facilities refused transfer. Thus, he was admitted to our ICU for 1:1 observation, and a psychiatry consult was placed with Dr. Patel via telepsychiatry. As per the psychiatrist, the patient was deemed safe to go home and not actively suicidal. He recommended that we restart the patient on Abilify given his good response to this medication in the past. The patient states that he would like to visit with [facility] in the near future. He is to f/u with his PCP, Dr. Quintana. - Discharge Data Discharge Date: 10/14/17 Discharge Disposition: Home, Self-Care 01 Condition: Fair - Patient Summary/Data Consults: Consultations 10/14/17 06:40 Consult to Strategy Analyst [CONS] Routine - Patient Instructions Diet: Usual Diet as Tolerated Activity: As Tolerated Driving: May Drive Today Showering/Bathing: May Shower Notify Provider of: Fever, Increased Pain, Swelling and Redness, Drainage, Nausea and/or Vomiting Other/Special Instructions: return to seek medical attention if you have any suicidal, or homicidal ideation - Discharge Plan Prescriptions/Med Rec: ARIPiprazole [Abilify] 5 mg PO DAILY 14 Days #14 tab Home Medications: Home Meds Chlorhexidine Gluconate [Chlorhexidine Gluconate 0.12% Rinse] 118 ml MM TID [History] Omeprazole 20 mg PO BEDTIME #30 cap.sr 10/02/17 [Rx] ARIPiprazole [Abilify] 5 mg PO DAILY 14 Days #14 tab 10/14/17 [Rx] Forms: ED Department Discharge Referrals: PCP,Unknown [Primary Care Provider] - Dontae Quintana MD [Ordering Only Provider] - - Patient Data Vitals - Most Recent: Last Vital Signs Temp 36.9 C 10/14/17 16:00 Pulse 95 10/14/17 16:00 Resp 18 10/14/17 16:00 BP 122/96 H 10/14/17 16:00 Pulse Ox 98 10/14/17 16:00 Weight - Most Recent: 55.8 kg I&O - Last 24 hours: Intake & Output 10/14/17 10/14/17 10/14/17 06:59 14:59 22:59 Intake Total 1050 1450 Output Total 800 Balance 1050 650 Lab Results - Last 24 hrs: Laboratory Results - last 24 hr 10/13/17 10/13/17 10/13/17 Range/Units 20:16 20:16 22:02 WBC 4.77 (4.0-11.0) K/uL RBC 4.55 (4.50-5.90) M/uL Hgb 14.9 (13.0-17.0) g/dL Hct 40.9 (38.0-50.0) % MCV 89.9 (80.0-98.0) fL MCH 32.7 H (27.0-32.0) pg MCHC 36.4 (31.0-37.0) g/dL RDW Std Deviation 42.7 (28.0-62.0) fl RDW Coeff of Adonay 13 (11.0-15.0) % Plt Count 345 (150-400) K/uL MPV 8.50 (7.40-12.00) fL Neut % (Auto) 68.4 (48.0-80.0) % Lymph % (Auto) 18.0 (16.0-40.0) % Richardson % (Auto) 11.3 (0.0-15.0) % Eos % (Auto) 1.7 (0.0-7.0) % Baso % (Auto) 0.6 (0.0-1.5) % Neut # (Auto) 3.3 (1.4-5.7) K/uL Lymph # (Auto) 0.9 (0.6-2.4) K/uL Richardson # (Auto) 0.5 (0.0-0.8) K/uL Eos # (Auto) 0.1 (0.0-0.7) K/uL Baso # (Auto) 0.0 (0.0-0.1) K/uL Add Manual Diff Neutrophils % (Manual) (48.0-80.0) % Band Neutrophils % % Lymphocytes % (Manual) (16.0-40.0) % Monocytes % (Manual) (0.0-15.0) % Eosinophils % (Manual) (0.0-7.0) % Basophils % (Manual) (0.0-1.5) % Nucleated RBC % 0.0 /100WBC Absolute Seg Neuts (1.4-5.7) Band Neutrophils # Lymphocytes # (Manual) (0.6-2.4) Monocytes # (Manual) (0.0-0.8) Eosinophils # (Manual) (0.0-0.7) Basophils # (Manual) (0.0-0.1) Nucleated RBCs # 0 K/uL Sodium 132 L (136-148) mmol/L Potassium 3.7 (3.5-5.1) mmol/L Chloride 96 L (98-107) mmol/L Carbon Dioxide 23.1 (21.0-32.0) mmol/L BUN 2 L (7.0-18.0) mg/dL Creatinine 0.8 (0.8-1.3) mg/dL Est Cr Clr Drug Dosing 80.32 mL/min Estimated GFR (MDRD) > 60.0 ml/min Glucose 71 L (74-106) mg/dL Calcium 8.7 (8.5-10.1) mg/dL Total Bilirubin 0.2 (0.2-1.0) mg/dL AST 35 (15-37) IU/L ALT 40 (14-63) IU/L Alkaline Phosphatase 73 (46-116) U/L Total Protein 6.9 (6.4-8.2) g/dL Albumin 3.5 (3.4-5.0) g/dL Globulin 3.4 (2.0-3.5) g/dL Albumin/Globulin Ratio 1.0 L (1.3-2.8) TSH 3rd Generation 4.08 H (0.36-3.74) uIU/mL Salicylates 3.1 (0-20) mg/dL Urine Opiates Screen NEGATIVE (NEGATIVE) Ur Oxycodone Screen NEGATIVE (NEGATIVE) Urine Methadone Screen NEGATIVE (NEGATIVE) Acetaminophen 0.0 ug/mL Ur Barbiturates Screen NEGATIVE (NEGATIVE) Ur Phencyclidine Scrn NEGATIVE (NEGATIVE) Ur Amphetamine Screen NEGATIVE (NEGATIVE) U Methamphetamines Scrn NEGATIVE (NEGATIVE) U Benzodiazepines Scrn NEGATIVE (NEGATIVE) U Cocaine Metab Screen NEGATIVE (NEGATIVE) U Marijuana (THC) Screen NEGATIVE (NEGATIVE) Ethyl Alcohol < 3.0 mg/dL 10/14/17 10/14/17 Range/Units 06:16 06:16 WBC 3.33 L (4.0-11.0) K/uL RBC 3.80 L (4.50-5.90) M/uL Hgb 12.4 L (13.0-17.0) g/dL Hct 34.2 L (38.0-50.0) % MCV 90.0 (80.0-98.0) fL MCH 32.6 H (27.0-32.0) pg MCHC 36.3 (31.0-37.0) g/dL RDW Std Deviation 42.3 (28.0-62.0) fl RDW Coeff of Adonay 13 (11.0-15.0) % Plt Count 274 (150-400) K/uL MPV 8.40 (7.40-12.00) fL Neut % (Auto) (48.0-80.0) % Lymph % (Auto) (16.0-40.0) % Richardson % (Auto) (0.0-15.0) % Eos % (Auto) (0.0-7.0) % Baso % (Auto) (0.0-1.5) % Neut # (Auto) (1.4-5.7) K/uL Lymph # (Auto) (0.6-2.4) K/uL Richardson # (Auto) (0.0-0.8) K/uL Eos # (Auto) (0.0-0.7) K/uL Baso # (Auto) (0.0-0.1) K/uL Add Manual Diff YES Neutrophils % (Manual) 54 (48.0-80.0) % Band Neutrophils % 2 % Lymphocytes % (Manual) 27 (16.0-40.0) % Monocytes % (Manual) 6 (0.0-15.0) % Eosinophils % (Manual) 5 (0.0-7.0) % Basophils % (Manual) 6 H (0.0-1.5) % Nucleated RBC % 0.0 /100WBC Absolute Seg Neuts 1.8 (1.4-5.7) Band Neutrophils # 0.1 Lymphocytes # (Manual) 0.9 (0.6-2.4) Monocytes # (Manual) 0.2 (0.0-0.8) Eosinophils # (Manual) 0.2 (0.0-0.7) Basophils # (Manual) 0.2 H (0.0-0.1) Nucleated RBCs # 0 K/uL Sodium 134 L (136-148) mmol/L Potassium 4.0 (3.5-5.1) mmol/L Chloride 101 (98-107) mmol/L Carbon Dioxide 22.0 (21.0-32.0) mmol/L BUN 10 (7.0-18.0) mg/dL Creatinine 0.8 (0.8-1.3) mg/dL Est Cr Clr Drug Dosing 82.34 mL/min Estimated GFR (MDRD) > 60.0 ml/min Glucose 71 L (74-106) mg/dL Calcium 8.3 L (8.5-10.1) mg/dL Total Bilirubin (0.2-1.0) mg/dL AST (15-37) IU/L ALT (14-63) IU/L Alkaline Phosphatase (46-116) U/L Total Protein (6.4-8.2) g/dL Albumin (3.4-5.0) g/dL Globulin (2.0-3.5) g/dL Albumin/Globulin Ratio (1.3-2.8) TSH 3rd Generation (0.36-3.74) uIU/mL Salicylates (0-20) mg/dL Urine Opiates Screen (NEGATIVE) Ur Oxycodone Screen (NEGATIVE) Urine Methadone Screen (NEGATIVE) Acetaminophen ug/mL Ur Barbiturates Screen (NEGATIVE) Ur Phencyclidine Scrn (NEGATIVE) Ur Amphetamine Screen (NEGATIVE) U Methamphetamines Scrn (NEGATIVE) U Benzodiazepines Scrn (NEGATIVE) U Cocaine Metab Screen (NEGATIVE) U Marijuana (THC) Screen (NEGATIVE) Ethyl Alcohol mg/dL Med Orders - Current: Current Medications Sodium Chloride (Normal Saline) 1,000 mls @ 125 mls/hr IV ASDIRECTED NELIDA Last Admin: 06/15/18 14:34 Dose: 125 mls/hr Morphine Sulfate (Morphine) 2 mg IVPUSH Q2H PRN PRN Reason: Pain (severe 7-10) Stop: 10/14/17 23:15 Last Admin: 10/14/17 05:03 Dose: 2 mg Ondansetron HCl (Zofran) 4 mg IVPUSH Q4H PRN PRN Reason: Nausea Last Admin: 10/14/17 09:17 Dose: 4 mg Discontinued Medications Omeprazole (Omeprazole) 20 mg PO ONETIME ONE Stop: 10/14/17 09:14 Last Admin: 10/14/17 09:21 Dose: 20 mg
--- NOTE | 2017-10-15 18:02 | CONS ---
DATE OF CONSULTATION: 10/14/2017 DATE OF : 1960 PRIMARY CARE PHYSICIAN: Unknown PCP IDENTIFICATION: The patient is a 57-year-old male who is admitted to the Inpatient ICU at [facility] in [place], [place]. He is seen for psychiatric evaluation. CHIEF COMPLAINT: "I was drunk, and I must have said something about killing myself." HISTORY OF PRESENT ILLNESS: The patient is a 57-year-old male who was admitted to the Inpatient MICU at [facility] on October 13, 2017, after presenting to the ER in an intoxicated state and stating that he was suicidal. 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 Evidently, the patient states that he becomes suicidal when intoxicated, and this appears to be the case for this clinical event. The patient has been deemed medically stabilized on the Inpatient Medical Unit, and at this point in time, he is denying that he is suicidal. He states that he has no suicidal thoughts or homicidal thoughts now that he is in a sober state. He also denies any psychotic, delusional, or paranoid symptoms. He does state he has been struggling with depressed feelings because of the aforementioned carcinoma and then the relationship difficulties. He does note that he has been on Abilify in the past, and this medication has been a positive one for him because the patient notes "it did help" in terms of improving his mood. He states that his plan is to get medically stabilized and get discharged back to community, so he can go to "[facility] and see Dr. Salas." The patient states that this is his outpatient psychiatrist, and he will see if he can get put back on the Abilify medication to help improve his mood. Medical staff is stating that the patient is approaching medical stability and that he could be discharged going forward if there is no further psychiatric intervention needed. For his part the patient is stating that he feels as good as can be at this point in time, is denying suicidal or homicidal ideation, does not feel that he needs to be transferred to an Inpatient Psychiatric Unit. MEDICATION: Medication at the time of presentation is omeprazole. ALLERGIES: No known drug allergies. PAST MEDICAL HISTORY: 1. Esophageal cancer, stage IV. 2. GERD. 3. G-tube placement. REVIEW OF SYSTEMS: Aside from GI, all other major organ systems are negative at this point in time for acute difficulties or complications. FAMILY, PSYCHIATRIC, AND CD HISTORY: None reported. PAST PSYCHIATRIC AND CD HISTORY: The patient states he has been on Abilify in the past and states this medication did not help. The patient denies any previous suicide attempts, although staff is reporting from collateral information they received, that he does have a history of one suicide attempt, but this was in the past and nothing recent. SOCIAL HISTORY: The patient states he was born and raised in [place]. He has been living in [place] and had recently got out of girlfriend's place and got himself a hotel. He is receiving oncologic care on a regular basis, and his esophageal cancer is being managed by the Oncology team. MENTAL STATUS EXAMINATION: The patient is a 57-year-old white male, in no apparent distress. Speech is of regular rate and rhythm. The patient is cognitively oriented x3. Psychomotor activities within normal limits. There is no abnormal motor movements or tics observed. Gait and station are not observed. This patient is lying in bed for the purposes of an inpatient consult. There is no behavioral or stated evidence of acute suicidal or homicidal ideation or acute psychotic, delusional, or paranoid symptoms. Thought processes appear organized. There are no manic symptoms or loose associations evident. Judgment and insight appear unimpaired at this point in time. Motivation for help appears fair to good. PHYSICAL EXAMINATION: VITAL SIGNS: 122/68, 101, 16, and 98.6 degrees. IMPRESSION: [place] I: 1. Depression, not otherwise specified, F32.9. 2. Alcohol abuse versus dependence. 3. Rule out major depressive disorder. [place] II: None. [place] III: 1. Esophageal cancer, stage IV. 2. Gastroesophageal reflux disease. 3. G-tube placement. [place] IV: Severe. [place] V: 55 to 60. PLAN: 1. Recommend beginning Abilify 5 mg q.a.m. While the patient remains on inpatient, MICU to help improve the patient's mood. 2. May discontinue the patient's one-to-one as the patient is not appearing to be acutely or remotely suicidal. At this point in time, does not appear to be a danger to himself or others. 3. Recommend that when the patient is medically stabilized that upon his discharge back to community, he has followup with his Oncology team as well as Outpatient Psychiatry to assess his overall physical and mental health function and efficacy of his psychiatric medication in particular. 4. We will continue to follow up with the patient on a regular basis while he remains on the inpatient MICU. 5. We will follow up with the patient sooner or if any complications in the interim. 6. Medication compliance. 7. Sobriety. 8. Crisis plan is in place. URIEL / BENITEZ /[id number]
== END 2017-10-14 18:43 | disposition home or self-care (01) ==
LOC: MW.ED 19:38 → MW.ICU 10-14 00:47
PROVIDERS: ADMIT Internal Medicine; ATTEND Internal Medicine
DX: R45.851 Suicidal ideations (principal); E87.1 Hypo-osmolality and hyponatremia; C80.1 Malignant (primary) neoplasm, unspecified; C79.89 Secondary malignant neoplasm of other specified sites; I10 Essential (primary) hypertension; K21.9 Gastro-esophageal reflux disease without esophagitis; F32.9 Major depressive disorder, single episode, unspecified; F10.10 Alcohol abuse, uncomplicated; F17.210 Nicotine dependence, cigarettes, uncomplicated; Z79.899 Other long term (current) drug therapy
CPT/HCPCS: 36415; 80048; 80053; 80305; 84443; 85025; 96361; 96374; 96375; 99285; A9270; G0480; J2270; J2405; J7040

== ENCOUNTER 2017-11-12 08:05 | Emergency (ER) | payer MEDICAID ==
--- NOTE | 2017-11-12 08:24 | EDM.PDOC ---
ED HPI GENERAL MEDICAL PROBLEM - General Chief Complaint: Respiratory Problem Stated Complaint: POSSIBLE SINUS INFECTION Time Seen by Provider: 11/12/17 08:18 Source of Information: Reports: Patient History Limitations: Reports: No Limitations - History of Present Illness INITIAL COMMENTS - FREE TEXT/NARRATIVE: History of present illness: []Patient radiation for throat cancer 3 months ago and has a history of chronic sinusitis and feels he has another sinus infection. He's been feeling weak, tired with no energy for the past few days. He's been drinking energy drinks and has been off his blood pressure medication since radiation therapy. He is followed by oncology and has PET scans and lab work scheduled next week. Patient states he has chronic throat pain, no difficulty swallowing Review of systems: As per history of present illness and below otherwise all systems reviewed and negative. Past medical history: As per history of present illness and as reviewed below otherwise noncontributory. Surgical history: As per history of present illness and as reviewed below otherwise noncontributory. Social history: No reported history of drug or alcohol abuse. Family history: As per history of present illness and as reviewed below otherwise noncontributory. Physical exam: General: Well developed, well nourished in NAD HEENT: Atraumatic, normocephalic, pupils reactive, negative for conjunctival pallor or scleral icterus, mucous membranes dry, throat mass palpable, neck supple, nontender, trachea midline. No sinus tenderness to palpation, no stridor Lungs: Clear to auscultation, breath sounds equal bilaterally, chest nontender. Heart: S1S2, regular, negative for clicks, rubs, or JVD. Abdomen: Soft, nondistended, nontender. Negative for masses or hepatosplenomegaly. Negative for costovertebral tenderness. Pelvis: Stable nontender. Genitourinary: Deferred. Rectal: Deferred. Extremities: Atraumatic, negative for cords or calf pain. Neurovascular unremarkable. Neuro: Awake, alert, oriented. Cranial nerves II through XII unremarkable. Cerebellum unremarkable. Motor and sensory unremarkable throughout. Exam nonfocal. Diagnostics: []I ordered labs and IV fluids however patient refused. Therapeutics: [] Impression: []Throat cancer, dehydration, uncontrolled high blood pressure Plan: []Follow-up with primary care Definitive disposition and diagnosis as appropriate pending reevaluation and review of above. - Related Data Allergies Allergy/AdvReac Type Severity Reaction Status Date / Time dust Allergy Sneezing Uncoded 11/12/17 08:29 Home Meds: Home Meds . [No Known Home Meds] 11/12/17 [History] Past Medical History - Past Health History Medical/Surgical History: Denies Medical/Surgical History HEENT History: Reports: None Cardiovascular History: Reports: Hypertension Respiratory History: Reports: None Gastrointestinal History: Reports: GERD Other Gastrointestinal History: hernia Genitourinary History: Reports: Other (See Below) Other Genitourinary History: difficulty voiding Musculoskeletal History: Reports: Fracture Other Musculoskeletal History: right leg Neurological History: Reports: Seizure Psychiatric History: Reports: Addiction, Depression, Suicidal Ideation Endocrine/Metabolic History: Reports: None Hematologic History: Reports: None Immunologic History: Reports: None Oncologic (Cancer) History: Reports: Squamous Cell Carcinoma Other Oncologic History: left hypopharynx Dermatologic History: Reports: None - Infectious Disease History Infectious Disease History: Reports: Chicken Pox - Past Surgical History Head Surgeries/Procedures: Reports: None HEENT Surgical History: Reports: None Cardiovascular Surgical History: Reports: None Respiratory Surgical History: Reports: None GI Surgical History: Reports: Hernia, Inguinal Male Surgical History: Reports: None Neurological Surgical History: Reports: None Musculoskeletal Surgical History: Reports: ORIF Other Musculoskeletal Surgeries/Procedures:: ORIF right leg (has hardware) Oncologic Surgical History: Reports: None Dermatological Surgical History: Reports: None Social & Family History - Family History Family Medical History: Noncontributory - Caffeine Use Caffeine Use: Reports: Soda Caffeine Use Comment: 1 drink each/day - Living Situation & Occupation Living situation: Reports: Single Occupation: Unemployed ED ROS GENERAL - Review of Systems Review Of Systems: See Below (See history of present illness) ED EXAM, GENERAL - Physical Exam Exam: See Below (See history of present illness) Course - Vital Signs Last Recorded V/S: Last Vital Signs Temp 97.6 F 11/12/17 08:29 Pulse 85 11/12/17 08:29 Resp 16 11/12/17 08:29 BP 150/111 H 11/12/17 08:29 Pulse Ox 100 11/12/17 08:29 - Orders/Labs/Meds Orders: Active Orders 24 hr Category Date Time Status EKG Documentation Completion [RC] STAT Care 11/12/17 08:33 Active CBC WITH AUTO DIFF [HEME] Stat Lab 11/12/17 08:33 Ordered COMPREHENSIVE METABOLIC PN,CMP [CHEM] Stat Lab 11/12/17 08:33 Ordered Sodium Chloride 0.9% [Normal Saline] 1,000 ml Med 11/12/17 08:33 Active IV .Bolus Sodium Chloride 0.9% [Saline Flush] Med 11/12/17 08:33 Active 10 ml FLUSH ASDIRECTED PRN Sodium Chloride 0.9% [Saline Flush] Med 11/12/17 08:33 Active 2.5 ml FLUSH ASDIRECTED PRN Saline Lock Insert [OM.PC] Stat Oth 11/12/17 08:33 Ordered Medication Orders Sodium Chloride (Normal Saline) 1,000 mls @ 999 mls/hr IV .Bolus ONE Stop: 11/12/17 09:33 Last Admin: 11/12/17 08:56 Dose: Not Given Sodium Chloride (Saline Flush) 10 ml FLUSH ASDIRECTED PRN PRN Reason: Keep Vein Open Sodium Chloride (Saline Flush) 2.5 ml FLUSH ASDIRECTED PRN PRN Reason: Keep Vein Open Meds: Medications Generic Name Dose Route Start Last Admin Trade Name Freq PRN Reason Stop Dose Admin Sodium Chloride 1,000 mls @ 999 mls/hr 11/12/17 08:33 11/12/17 08:56 Normal Saline IV 11/12/17 09:33 Not Given .Bolus ONE Sodium Chloride 10 ml 11/12/17 08:33 Saline Flush FLUSH ASDIRECTED PRN Keep Vein Open Sodium Chloride 2.5 ml 11/12/17 08:33 Saline Flush FLUSH ASDIRECTED PRN Keep Vein Open Departure - Departure Time of Disposition: 09:01 Disposition: Home, Self-Care 01 Condition: Good Clinical Impression: Uncontrolled hypertension, Throat cancer - Discharge Information Referrals: PCP,None [Primary Care Provider] - Forms: ED Department Discharge Additional Instructions: The following information is given to patients seen in the emergency department who are being discharged to home. This information is to outline your options for follow-up care. We provide all patients seen in our emergency department with a follow-up referral. The need for follow-up, as well as the timing and circumstances, are variable depending upon the specifics of your emergency department visit. If you don't have a primary care physician on staff, we will provide you with a referral. We always advise you to contact your personal physician following an emergency department visit to inform them of the circumstance of the visit and for follow-up with them and/or the need for any referrals to a consulting specialist. The emergency department will also refer you to a specialist when appropriate. This referral assures that you have the opportunity for follow-up care with a specialist. All of these measure are taken in an effort to provide you with optimal care, which includes your follow-up. Under all circumstances we always encourage you to contact your private physician who remains a resource for coordinating your care. When calling for follow-up care, please make the office aware that this follow-up is from your recent emergency room visit. If for any reason you are refused follow-up, please contact the [facility] Emergency Department at and asked to speak to the emergency department charge nurse. [facility] Primary Care [address] [place] [id number] - My Orders Last 24 Hours: My Active Orders 11/12/17 08:33 EKG Documentation Completion [RC] STAT CBC WITH AUTO DIFF [HEME] Stat COMPREHENSIVE METABOLIC PN,CMP [CHEM] Stat Sodium Chloride 0.9% [Normal Saline] 1,000 ml IV .Bolus Sodium Chloride 0.9% [Saline Flush] 10 ml FLUSH ASDIRECTED PRN Sodium Chloride 0.9% [Saline Flush] 2.5 ml FLUSH ASDIRECTED PRN Saline Lock Insert [OM.PC] Stat - Assessment/Plan Last 24 Hours: My Active Orders 11/12/17 08:33 EKG Documentation Completion [RC] STAT CBC WITH AUTO DIFF [HEME] Stat COMPREHENSIVE METABOLIC PN,CMP [CHEM] Stat Sodium Chloride 0.9% [Normal Saline] 1,000 ml IV .Bolus Sodium Chloride 0.9% [Saline Flush] 10 ml FLUSH ASDIRECTED PRN Sodium Chloride 0.9% [Saline Flush] 2.5 ml FLUSH ASDIRECTED PRN Saline Lock Insert [OM.PC] Stat
[2017-11-12] MEDS ORDERED: Sodium Chloride 0.9% 10 ML Syringe FLUSH PRN (08:33)
[2017-11-12] MEDS ORDERED: Sodium Chloride 0.9% 2.5 ML Syringe FLUSH PRN (08:33)
[2017-11-12] MEDS ORDERED: Sodium Chloride 0.9% 1,000 ML IV ONE (08:33)
[2017-11-12 09:16] VITALS: BP 158/111
== END 2017-11-12 09:11 | disposition home or self-care (01) ==
LOC: MW.ED 08:05
DX: E86.0 Dehydration (principal); C14.0 Malignant neoplasm of pharynx, unspecified; I10 Essential (primary) hypertension; K21.9 Gastro-esophageal reflux disease without esophagitis; Z91.048 Other nonmedicinal substance allergy status
CPT/HCPCS: 93005; 99283; 99283-25

== ENCOUNTER 2017-11-13 09:11 | Emergency (ER) | payer MEDICAID ==
[2017-11-13] MEDS ORDERED: Sodium Chloride 0.9% 1,000 ML IV ONE (09:13)
[2017-11-13] MEDS ORDERED: Sodium Chloride 0.9% 10 ML Syringe FLUSH PRN (09:13)
[2017-11-13] MEDS ORDERED: Sodium Chloride 0.9% 2.5 ML Syringe FLUSH PRN (09:13)
[2017-11-13] MEDS ORDERED: cloNIDine 0.1 MG Tab PO ONE (09:28)
--- NOTE | 2017-11-13 09:33 | EDM.PDOC ---
ED HPI GENERAL MEDICAL PROBLEM - General Chief Complaint: Headache Stated Complaint: HBP Time Seen by Provider: 11/13/17 09:15 Source of Information: Reports: Patient History Limitations: Reports: No Limitations - History of Present Illness INITIAL COMMENTS - FREE TEXT/NARRATIVE: History of present illness: []Patient was seen here yesterday for not feeling well, weakness and lack of energy and refused a workup. He was found to be hypertensive and stated that his blood pressure meds were taken away when he started radiation therapy for throat cancer 3 months ago. Today with worsening symptoms states that he has to go to work tomorrow and wants to feel better today. He denies any fevers or chills, difficulty breathing, chest pain, shortness of breath or difficulty swallowing. Patient does state he have a head has a headache. Patient also complains of a chronic cough. He continues to smoke. Review of systems: As per history of present illness and below otherwise all systems reviewed and negative. Past medical history: As per history of present illness and as reviewed below otherwise noncontributory. Surgical history: As per history of present illness and as reviewed below otherwise noncontributory. Social history: No reported history of drug or alcohol abuse. Family history: As per history of present illness and as reviewed below otherwise noncontributory. Physical exam: General: Well developed, well nourished in NAD, - show elevated blood pressure 150/110 HEENT: Atraumatic, normocephalic, pupils reactive, negative for conjunctival pallor or scleral icterus, mucous membranes moist, throat clear, neck supple, nontender, palpable firm mass trachea midline. No stridor Lungs: Clear to auscultation, breath sounds equal bilaterally, chest nontender. No respiratory distress Heart: S1S2, regular, negative for clicks, rubs, or JVD. Abdomen: Soft, nondistended, nontender. Negative for masses or hepatosplenomegaly. Negative for costovertebral tenderness. Pelvis: Stable nontender. Genitourinary: Deferred. Rectal: Deferred. Extremities: Atraumatic, negative for cords or calf pain. Neurovascular unremarkable. Neuro: Awake, alert, oriented. Cranial nerves II through XII unremarkable. Cerebellum unremarkable. Motor and sensory unremarkable throughout. Exam nonfocal. Diagnostics: []WBC is 2.5, chemistries show mildly low sodium at 131, CT of his head is negative, chest x-ray negative Therapeutics: []IV hydrated with normal saline, lisinopril and clonidine given for blood pressure control Impression: []Uncontrolled high blood pressure, throat cancer Plan: []Follow-up with PMD as scheduled this week Definitive disposition and diagnosis as appropriate pending reevaluation and review of above. Head Pain Score (Numeric/FACES): 8 - Related Data Allergies Allergy/AdvReac Type Severity Reaction Status Date / Time dust Allergy Sneezing Uncoded 11/13/17 09:17 Home Meds: Home Meds Omeprazole Magnesium [Prilosec Otc] 20 mg PO 11/13/17 [History] Past Medical History - Past Health History Medical/Surgical History: Denies Medical/Surgical History HEENT History: Reports: None Cardiovascular History: Reports: Hypertension Respiratory History: Reports: None Gastrointestinal History: Reports: GERD Other Gastrointestinal History: hernia Genitourinary History: Reports: Other (See Below) Other Genitourinary History: difficulty voiding Musculoskeletal History: Reports: Fracture Other Musculoskeletal History: right leg Neurological History: Reports: Seizure Psychiatric History: Reports: Addiction, Depression, Suicidal Ideation Endocrine/Metabolic History: Reports: None Hematologic History: Reports: None Immunologic History: Reports: None Oncologic (Cancer) History: Reports: Squamous Cell Carcinoma Other Oncologic History: left hypopharynx Dermatologic History: Reports: None - Infectious Disease History Infectious Disease History: Reports: None - Past Surgical History Head Surgeries/Procedures: Reports: None HEENT Surgical History: Reports: None Cardiovascular Surgical History: Reports: None Respiratory Surgical History: Reports: None GI Surgical History: Reports: Hernia, Inguinal Male Surgical History: Reports: None Neurological Surgical History: Reports: None Musculoskeletal Surgical History: Reports: ORIF Other Musculoskeletal Surgeries/Procedures:: ORIF right leg (has hardware) Oncologic Surgical History: Reports: None Dermatological Surgical History: Reports: None Social & Family History - Family History Family Medical History: Noncontributory - Tobacco Use Smoking Status *Q: Current Every Day Smoker Years of Tobacco use: 30 Packs/Tins Daily: 1 - Caffeine Use Caffeine Use: Reports: Coffee, Energy Drinks, Soda Other Caffeine Use: daily Caffeine Use Comment: 1 drink each/day - Recreational Drug Use Recreational Drug Use: No - Living Situation & Occupation Living situation: Reports: Single Occupation: Unemployed ED ROS GENERAL - Review of Systems Review Of Systems: See Below (See history of present illness) ED EXAM, GENERAL - Physical Exam Exam: See Below (See history of present illness) Course - Vital Signs Last Recorded V/S: Last Vital Signs Temp 97.5 F 11/13/17 09:18 Pulse 87 11/13/17 09:18 Resp 16 11/13/17 09:18 BP 150/100 H 11/13/17 10:38 Pulse Ox 97 11/13/17 09:18 - Orders/Labs/Meds Orders: Active Orders 24 hr Category Date Time Status Chest 2V [CR] Stat Exams 11/13/17 09:28 Taken Head wo Cont [CT] Stat Exams 11/13/17 09:31 Taken Sodium Chloride 0.9% [Saline Flush] Med 11/13/17 09:13 Active 10 ml FLUSH ASDIRECTED PRN Sodium Chloride 0.9% [Saline Flush] Med 11/13/17 09:13 Active 2.5 ml FLUSH ASDIRECTED PRN Saline Lock Insert [OM.PC] Stat Oth 11/13/17 09:13 Ordered Medication Orders Sodium Chloride (Saline Flush) 10 ml FLUSH ASDIRECTED PRN PRN Reason: Keep Vein Open Sodium Chloride (Saline Flush) 2.5 ml FLUSH ASDIRECTED PRN PRN Reason: Keep Vein Open Labs: Laboratory Tests 11/13/17 11/13/17 Range/Units 09:20 09:20 WBC 2.53 L (4.0-11.0) K/uL RBC 4.90 (4.50-5.90) M/uL Hgb 15.3 (13.0-17.0) g/dL Hct 41.7 (38.0-50.0) % MCV 85.1 (80.0-98.0) fL MCH 31.2 (27.0-32.0) pg MCHC 36.7 (31.0-37.0) g/dL RDW Std Deviation 37.7 (28.0-62.0) fl RDW Coeff of Adonay 12 (11.0-15.0) % Plt Count 235 (150-400) K/uL MPV 8.90 (7.40-12.00) fL Neut % (Auto) 56.5 (48.0-80.0) % Lymph % (Auto) 28.5 (16.0-40.0) % Runnels % (Auto) 8.3 (0.0-15.0) % Eos % (Auto) 5.5 (0.0-7.0) % Baso % (Auto) 1.2 (0.0-1.5) % Neut # (Auto) 1.4 (1.4-5.7) K/uL Lymph # (Auto) 0.7 (0.6-2.4) K/uL Runnels # (Auto) 0.2 (0.0-0.8) K/uL Eos # (Auto) 0.1 (0.0-0.7) K/uL Baso # (Auto) 0.0 (0.0-0.1) K/uL Nucleated RBC % 0.0 /100WBC Nucleated RBCs # 0 K/uL Sodium 131 L (136-148) mmol/L Potassium 4.2 (3.5-5.1) mmol/L Chloride 95 L (98-107) mmol/L Carbon Dioxide 27.9 (21.0-32.0) mmol/L BUN 5 L (7.0-18.0) mg/dL Creatinine 1.0 (0.8-1.3) mg/dL Est Cr Clr Drug Dosing 68.54 mL/min Estimated GFR (MDRD) > 60.0 ml/min Glucose 87 (74-106) mg/dL Calcium 9.1 (8.5-10.1) mg/dL Total Bilirubin 0.3 (0.2-1.0) mg/dL AST 18 (15-37) IU/L ALT 20 (14-63) IU/L Alkaline Phosphatase 59 (46-116) U/L Total Protein 7.1 (6.4-8.2) g/dL Albumin 3.9 (3.4-5.0) g/dL Globulin 3.2 (2.0-3.5) g/dL Albumin/Globulin Ratio 1.2 L (1.3-2.8) Meds: Medications Generic Name Dose Route Start Last Admin Trade Name Freq PRN Reason Stop Dose Admin Sodium Chloride 10 ml 11/13/17 09:13 Saline Flush FLUSH ASDIRECTED PRN Keep Vein Open Sodium Chloride 2.5 ml 11/13/17 09:13 Saline Flush FLUSH ASDIRECTED PRN Keep Vein Open Discontinued Medications Generic Name Dose Route Start Last Admin Trade Name Marycarmen PRN Reason Stop Dose Admin Clonidine HCl 0.2 mg 11/13/17 09:28 11/13/17 09:35 Catapres PO 11/13/17 09:29 0.2 mg ONETIME ONE Administration Sodium Chloride 1,000 mls @ 999 mls/hr 11/13/17 09:13 11/13/17 09:35 Normal Saline IV 11/13/17 10:13 999 mls/hr .Bolus ONE Administration Lisinopril 40 mg 11/13/17 10:31 11/13/17 10:38 Prinivil PO 11/13/17 10:32 40 mg ONETIME ONE Administration Departure - Departure Time of Disposition: 10:54 Disposition: Home, Self-Care 01 Condition: Good Clinical Impression: Uncontrolled hypertension, Throat cancer - Discharge Information Referrals: PCP,None [Primary Care Provider] - Forms: ED Department Discharge Additional Instructions: The following information is given to patients seen in the emergency department who are being discharged to home. This information is to outline your options for follow-up care. We provide all patients seen in our emergency department with a follow-up referral. The need for follow-up, as well as the timing and circumstances, are variable depending upon the specifics of your emergency department visit. If you don't have a primary care physician on staff, we will provide you with a referral. We always advise you to contact your personal physician following an emergency department visit to inform them of the circumstance of the visit and for follow-up with them and/or the need for any referrals to a consulting specialist. The emergency department will also refer you to a specialist when appropriate. This referral assures that you have the opportunity for follow-up care with a specialist. All of these measure are taken in an effort to provide you with optimal care, which includes your follow-up. Under all circumstances we always encourage you to contact your private physician who remains a resource for coordinating your care. When calling for follow-up care, please make the office aware that this follow-up is from your recent emergency room visit. If for any reason you are refused follow-up, please contact the [facility] Emergency Department at and asked to speak to the emergency department charge nurse. Follow-up with your primary as scheduled, return if symptoms worsen or change. [facility] Primary Care [address] [place] [id number] - My Orders Last 24 Hours: My Active Orders 11/13/17 09:13 Sodium Chloride 0.9% [Saline Flush] 10 ml FLUSH ASDIRECTED PRN Sodium Chloride 0.9% [Saline Flush] 2.5 ml FLUSH ASDIRECTED PRN Saline Lock Insert [OM.PC] Stat 11/13/17 09:28 Chest 2V [CR] Stat 11/13/17 09:31 Head wo Cont [CT] Stat - Assessment/Plan Last 24 Hours: My Active Orders 11/13/17 09:13 Sodium Chloride 0.9% [Saline Flush] 10 ml FLUSH ASDIRECTED PRN Sodium Chloride 0.9% [Saline Flush] 2.5 ml FLUSH ASDIRECTED PRN Saline Lock Insert [OM.PC] Stat 11/13/17 09:28 Chest 2V [CR] Stat 11/13/17 09:31 Head wo Cont [CT] Stat
[2017-11-13 09:57] LABS: CHLORIDE,CL 95 mmol/L (98-107); SODIUM,NA 131 mmol/L (136-148)
[2017-11-13] MEDS ORDERED: Lisinopril 10 MG Tab PO ONE (10:31)
[2017-11-13 11:10] VITALS: BP 155/105
--- NOTE | 2017-11-14 17:21 | CT ---
EXAM DATE: 11/13/17 PATIENT'S AGE: 57 Patient: MEG ADAIR Facility: [place], [place] Site . Site : [id number] Study: CT Head [id number] 9:57:32 AM Ordering Physician: Wilver Yost Final Report: INDICATION: Headache. TECHNIQUE: Noncontrast CT images were acquired through the brain. COMPARISON: None. FINDINGS: The ventricles and sulci are within normal limits for patient age. No mass effect or midline shift. The garcia-white differentiation is maintained. No acute intracranial hemorrhage or pathologic extra-axial fluid collection. Faint atherosclerotic calcifications intracranial internal carotid arteries. The globes are symmetric in size. The calvarium is intact. Minimal mucosal thickening in the maxillary sinuses. The mastoid air cells are clear. IMPRESSION: 1. No acute intracranial hemorrhage or mass effect. Please note that all CT scans at this facility use dose modulation, iterative reconstruction, and/or weight-based dosing when appropriate to reduce radiation dose to as low as reasonably achievable. Dictated by Yohannes Murphy MD @ Nov 13 2017 10:44AM (Electronic Signature) Report Signed by Proxy. [facility]PITALMadelyn
--- NOTE | 2017-11-14 17:22 | CR ---
EXAM DATE: 11/13/17 PATIENT'S AGE: 57 Patient: MEG ADAIR Facility: [place], [place] Site . Site : 1960 Study: XRay Chest [id number]/[id number]/2018 10:00:25 AM Ordering Physician: Wilver Yost Final Report: INDICATION: Pain. Short of breath. TECHNIQUE: Two-view chest. FINDINGS: Distal tip of the left-sided Port-A-Cath in the distal superior vena cava. Heart and mediastinum are normal in size and configuration. Pulmonary vessels are normal. Lungs are clear and are fully expanded. No pleural fluid. No acute bony abnormality. IMPRESSION: No acute chest disease. Dictated by Christianne Lucio MD @ Nov 13 2017 10:47AM (Electronic Signature) Report Signed by Proxy. [facility]elyn
== END 2017-11-13 11:10 | disposition home or self-care (01) ==
LOC: MW.ED 09:11
DX: I10 Essential (primary) hypertension (principal); C14.0 Malignant neoplasm of pharynx, unspecified; K21.9 Gastro-esophageal reflux disease without esophagitis; F17.210 Nicotine dependence, cigarettes, uncomplicated; Z91.048 Other nonmedicinal substance allergy status
CPT/HCPCS: 70450; 71046; 80053; 85025; 96360; 99284; A9270; J7040; 99283

== ENCOUNTER 2018-01-04 17:44 | Emergency (ER) | payer MEDICAID ==
[2018-01-04 18:00] VITALS: BP 170/97
[2018-01-04] MEDS ORDERED: Albuterol/Ipratropium 3.0-0.5 MG/3 ML Neb Soln NEB ONE (18:15)
--- NOTE | 2018-01-04 18:22 | EDM.PDOC ---
ED HPI GENERAL MEDICAL PROBLEM - General Chief Complaint: ENT Problem Stated Complaint: SINUS INFECTION Time Seen by Provider: 01/04/18 17:45 Source of Information: Reports: Patient History Limitations: Reports: No Limitations - History of Present Illness INITIAL COMMENTS - FREE TEXT/NARRATIVE: HISTORY AND PHYSICAL: History of present illness: Patient is a 57-year-old male who presents to the emergency room today with complaints of bilateral ear pain, sinus pressure, sore throat and cough 3 days. Patient states that he feels like he has a sinus infection, was unable to get into his primary care doctor for 2 weeks. Patient does have a past health history of esophageal cancer states that he is currently waiting for a PET scan know his status on his cancer. Patient is a daily smoker and states he normally does have a cough associated with this. Was recently taken of multiple medications which included antihypertensives by his PCP; until his PET scan was completed. He denies any fever, chills, chest pain, abdominal pain, nausea, vomiting, diarrhea or constipation. Review of systems: As per history of present illness and below otherwise all systems reviewed and negative. Past medical history: As per history of present illness and as reviewed below otherwise noncontributory. Surgical history: As per history of present illness and as reviewed below otherwise noncontributory. Social history: No reported history of drug or alcohol abuse. Family history: As per history of present illness and as reviewed below otherwise noncontributory. Physical exam: General: well-developed and well-nourished 57-year-old male. Alert and oriented. Nontoxic appearing and in no acute distress. HEENT: Atraumatic, normocephalic, pupils equal and reactive bilaterally, negative for conjunctival pallor or scleral icterus, maxillary sinus pain bilaterally, mucous membranes moist, mild erythema to the posterior oropharynx without exudate, neck supple, nontender, trachea midline. No drooling or trismus noted. No meningeal signs Lungs: Clear to auscultation, breath sounds equal bilaterally, chest nontender. Heart: S1S2, regular rate and rhythm without overt murmur Abdomen: Soft, nondistended, nontender. Negative for masses or hepatosplenomegaly. Negative for costovertebral tenderness. Pelvis: Stable nontender. Genitourinary: Deferred. Rectal: Deferred. Skin: Intact, warm, dry. No lesions or rashes noted. Extremities: Atraumatic, negative for cords or calf pain. Neurovascular unremarkable. Neuro: Awake, alert, oriented. Cranial nerves II through XII unremarkable. Cerebellum unremarkable. Motor and sensory unremarkable throughout. Exam nonfocal. Notes: Patient does have some maxillary sinus tenderness. Due to his multiple complaints and will treat him with Augmentin. Lung sounds to have fine expiratory wheezing. I will treat him with Augmentin and do a albuterol treatment while here and give prescription for pro-air inhaler. Encourage patient to follow-up with his primary care provider, Dr. Quintana, as he is managing his BP and home medications. He voices understanding and is agreeable to plan of care. Diagnostics: None Therapeutics: Duo-Neb Prescription: Augmentin BID x 10 days Pro-Air PRN Impression: Sinusitis Bronchitis Plan: 1. Please quit smoking 2. Take your antibiotic as directed. Use the inhaler as needed for cough. 3. Please follow up with Dr Quintana at [facility] in the next 1-2 days. Address your blood pressure with him during this time. 4. Return to the ED as needed and as discussed. Definitive disposition and diagnosis as appropriate pending reevaluation and review of above. Duration: Day(s): Head Pain Score (Numeric/FACES): 8 - Related Data Allergies Allergy/AdvReac Type Severity Reaction Status Date / Time dust Allergy Sneezing Uncoded 01/04/18 17:55 Home Meds: Home Meds Omeprazole Magnesium [Prilosec Otc] 20 mg PO DAILY 11/13/17 [History] Albuterol [Ventolin HFA] 1 puff INH Q4HR PRN #1 inhaler 01/04/18 [Rx] Amoxicillin/Clavulanate K [Augmentin 875-125 MG] 1 tab PO BID 10 Days #20 tablet 01/04/18 [Rx] Past Medical History - Past Health History Medical/Surgical History: Denies Medical/Surgical History HEENT History: Reports: None Cardiovascular History: Reports: Hypertension Respiratory History: Reports: None Gastrointestinal History: Reports: GERD Other Gastrointestinal History: hernia Genitourinary History: Reports: Other (See Below) Other Genitourinary History: difficulty voiding Musculoskeletal History: Reports: Fracture Other Musculoskeletal History: right leg Neurological History: Reports: Seizure Psychiatric History: Reports: Addiction, Depression, Suicidal Ideation Endocrine/Metabolic History: Reports: None Hematologic History: Reports: None Immunologic History: Reports: None Oncologic (Cancer) History: Reports: Squamous Cell Carcinoma Other Oncologic History: left hypopharynx Dermatologic History: Reports: None - Infectious Disease History Infectious Disease History: Reports: None - Past Surgical History Head Surgeries/Procedures: Reports: None HEENT Surgical History: Reports: None Cardiovascular Surgical History: Reports: None Respiratory Surgical History: Reports: None GI Surgical History: Reports: Hernia, Inguinal Male Surgical History: Reports: None Neurological Surgical History: Reports: None Musculoskeletal Surgical History: Reports: ORIF Other Musculoskeletal Surgeries/Procedures:: ORIF right leg (has hardware) Oncologic Surgical History: Reports: None Dermatological Surgical History: Reports: None Social & Family History - Family History Family Medical History: Noncontributory - Tobacco Use Smoking Status *Q: Current Every Day Smoker Years of Tobacco use: 30 Packs/Tins Daily: 1 - Caffeine Use Caffeine Use: Reports: Coffee Other Caffeine Use: daily Caffeine Use Comment: 1 drink each/day - Recreational Drug Use Recreational Drug Use: No - Living Situation & Occupation Living situation: Reports: Single Occupation: Unemployed ED ROS ENT - Review of Systems Review Of Systems: ROS reveals no pertinent complaints other than HPI. ED EXAM, ENT - Physical Exam Exam: See Below (See dictation) Course - Vital Signs Last Recorded V/S: Last Vital Signs Temp 98.6 F 01/04/18 17:56 Pulse 89 01/04/18 17:56 Resp 18 01/04/18 17:56 BP 170/97 H 01/04/18 17:56 Pulse Ox 98 01/04/18 17:56 - Orders/Labs/Meds Orders: Active Orders 24 hr Category Date Time Status RT Aerosol Therapy [RC] ASDIRECTED Care 01/04/18 18:15 Ordered Meds: Medications Discontinued Medications Generic Name Dose Route Start Last Admin Trade Name Freq PRN Reason Stop Dose Admin Albuterol/Ipratropium 3 ml 01/04/18 18:15 01/04/18 18:28 Duoneb 3.0-0.5 Mg/3 Ml NEB 01/04/18 18:16 3 ml ONETIME ONE Administration Departure - Departure Time of Disposition: 18:50 Disposition: Home, Self-Care 01 Clinical Impression: Bronchitis Sinusitis Qualifiers: Sinusitis location: maxillary Chronicity: acute Recurrence: non-recurrent Qualified Code(s): J01.00 - Acute maxillary sinusitis, unspecified - Discharge Information Prescriptions: Albuterol [Ventolin HFA] 1 puff INH Q4HR PRN #1 inhaler PRN Reason: Dyspnea Amoxicillin/Clavulanate K [Augmentin 875-125 MG] 1 tab PO BID 10 Days #20 tablet Instructions: Sinusitis, Adult, [id number] Referrals: PCP,None [Primary Care Provider] - Forms: ED Department Discharge Additional Instructions: The following information is given to patients seen in the emergency department who are being discharged to home. This information is to outline your options for follow-up care. We provide all patients seen in our emergency department with a follow-up referral. The need for follow-up, as well as the timing and circumstances, are variable depending upon the specifics of your emergency department visit. If you don't have a primary care physician on staff, we will provide you with a referral. We always advise you to contact your personal physician following an emergency department visit to inform them of the circumstance of the visit and for follow-up with them and/or the need for any referrals to a consulting specialist. The emergency department will also refer you to a specialist when appropriate. This referral assures that you have the opportunity for follow-up care with a specialist. All of these measure are taken in an effort to provide you with optimal care, which includes your follow-up. Under all circumstances we always encourage you to contact your private physician who remains a resource for coordinating your care. When calling for follow-up care, please make the office aware that this follow-up is from your recent emergency room visit. If for any reason you are refused follow-up, please contact the [facility] Emergency Department at and asked to speak to the emergency department charge nurse. [facility] [address] [place] [id number] [facility] [address] [place] [id number] 1. Please quit smoking 2. Take your antibiotic as directed. Use the inhaler as needed for cough. 3. Please follow up with Dr Quintana at [facility] in the next 1-2 days. Address your blood pressure with him during this time. 4. Return to the ED as needed and as discussed. - My Orders Last 24 Hours: My Active Orders 01/04/18 18:15 RT Aerosol Therapy [RC] ASDIRECTED - Assessment/Plan Last 24 Hours: My Active Orders 01/04/18 18:15 RT Aerosol Therapy [RC] ASDIRECTED
== END 2018-01-04 18:43 | disposition home or self-care (01) ==
LOC: MW.ED 17:44
DX: J01.00 Acute maxillary sinusitis, unspecified (principal); J40 Bronchitis, not specified as acute or chronic; I10 Essential (primary) hypertension; F17.210 Nicotine dependence, cigarettes, uncomplicated
CPT/HCPCS: 94640; 99283-25; J7620-GY

== ENCOUNTER 2018-05-16 19:57 | Inpatient (IN) | payer MEDICAID ==
[2018-05-16] MEDS ORDERED: Sodium Chloride 0.9% 1,000 ML IV ONE (20:39)
[2018-05-16] MEDS ORDERED: fentaNYL 100 MCG/2 ML SDV IVPUSH ONE (20:40)
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
[2018-05-16 21:49] LABS: CHLORIDE,CL 95 mmol/L (98-107); SODIUM,NA 129 mmol/L (136-148)
[2018-05-16] MEDS ORDERED: Ondansetron 4 MG/2 ML SDV IVPUSH PRN (22:46)
[2018-05-16] MEDS ORDERED: Acetaminophen 325 MG Tab PO PRN (22:46)
[2018-05-16] MEDS ORDERED: oxyCODONE 5 MG Tab PO PRN (22:46)
[2018-05-16] MEDS ORDERED: Ibuprofen 200 MG Tab PO PRN (22:46)
[2018-05-16] MEDS ORDERED: Morphine 10 MG/ML Syringe IVPUSH PRN (22:46)
--- NOTE | 2018-05-16 22:48 | PCM.HP ---
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 Patient has a G-tube but has not been using it. He did drink two beers today. He has had a two prior admissions for suicidal ideation while intoxicated. His primary goal during these admissions is to took for a daycare teacher weather it is to get us to help convince his girlfriend to care for him or to get him placed in [facility]. He reports he is homeless and can no longer take care of himself. throat Pain Score (Numeric/FACES): 10 - Related Data Allergies/Adverse Reactions: Allergies Allergy/AdvReac Type Severity Reaction Status Date / Time dust Allergy Sneezing Uncoded 03/13/18 10:25 Home Medications: Home Meds . [Unable to Verify Home Med List] 05/16/18 [History] Past Medical History - Past Health History Medical/Surgical History: Denies Medical/Surgical History HEENT History: Reports: None Cardiovascular History: Reports: Hypertension Respiratory History: Reports: None Gastrointestinal History: Reports: GERD Other Gastrointestinal History: hernia Genitourinary History: Reports: Other (See Below) Other Genitourinary History: Hx: difficulty voiding Musculoskeletal History: Reports: Fracture Other Musculoskeletal History: right leg Neurological History: Reports: Seizure Psychiatric History: Reports: Addiction, Depression, Suicidal Ideation Endocrine/Metabolic History: Reports: None Hematologic History: Reports: None Immunologic History: Reports: None Oncologic (Cancer) History: Reports: Squamous Cell Carcinoma Other Oncologic History: left hypopharynx Dermatologic History: Reports: None - Infectious Disease History Infectious Disease History: Reports: None - Past Surgical History Head Surgeries/Procedures: Reports: None HEENT Surgical History: Reports: None, Other (See Below) Other HEENT Surgeries/Procedures: Stage IV esophageal cancer Cardiovascular Surgical History: Reports: None Respiratory Surgical History: Reports: None GI Surgical History: Reports: Hernia, Inguinal Male Surgical History: Reports: None Neurological Surgical History: Reports: None Musculoskeletal Surgical History: Reports: ORIF Other Musculoskeletal Surgeries/Procedures:: ORIF right leg (has hardware) Oncologic Surgical History: Reports: None Dermatological Surgical History: Reports: None Social & Family History - Family History Family Medical History: Noncontributory - Caffeine Use Caffeine Use: Reports: Energy Drinks, Soda Other Caffeine Use: daily Caffeine Use Comment: 1 drink each/day - Alcohol Use Date of Last Drink: 05/16/18 - Living Situation & Occupation Living situation: Reports: Single Occupation: Unemployed H&P Review of Systems - Review of Systems: Review Of Systems: ROS reveals no pertinent complaints other than HPI. Exam - Exam Exam: See Below - Vital Signs Vital Signs: Last Vital Signs Temp 36.3 C 05/16/18 21:54 Pulse 87 05/16/18 21:54 Resp 18 05/16/18 21:54 BP 152/104 H 05/16/18 21:54 Pulse Ox 99 05/16/18 21:54 Weight: 62.142 kg - Exam General: Alert, Oriented Lungs: Clear to Auscultation, Normal Respiratory Effort Cardiovascular: Regular Rate, Regular Rhythm GI/Abdominal Exam: Soft, Non-Tender Extremities: Non-Tender, No Pedal Edema Skin: Warm, Dry, Intact - Patient Data Lab Results Last 24 hrs: Laboratory Results - last 24 hr 05/16/18 05/16/18 Range/Units 21:16 21:16 WBC 3.79 L (4.0-11.0) K/uL RBC 4.27 L (4.50-5.90) M/uL Hgb 14.2 (13.0-17.0) g/dL Hct 38.2 (38.0-50.0) % MCV 89.5 (80.0-98.0) fL MCH 33.3 H (27.0-32.0) pg MCHC 37.2 H (31.0-37.0) g/dL RDW Std Deviation 48.2 (28.0-62.0) fl RDW Coeff of Adonay 15 (11.0-15.0) % Plt Count 263 (150-400) K/uL MPV 8.10 (7.40-12.00) fL Neut % (Auto) 64.4 (48.0-80.0) % Lymph % (Auto) 27.2 (16.0-40.0) % [place] % (Auto) 6.6 (0.0-15.0) % Eos % (Auto) 1.3 (0.0-7.0) % Baso % (Auto) 0.5 (0.0-1.5) % Neut # (Auto) 2.4 (1.4-5.7) K/uL Lymph # (Auto) 1.0 (0.6-2.4) K/uL [place] # (Auto) 0.3 (0.0-0.8) K/uL Eos # (Auto) 0.1 (0.0-0.7) K/uL Baso # (Auto) 0.0 (0.0-0.1) K/uL Nucleated RBC % 0.0 /100WBC Nucleated RBCs # 0 K/uL Sodium 129 L (136-148) mmol/L Potassium 4.4 (3.5-5.1) mmol/L Chloride 95 L (98-107) mmol/L Carbon Dioxide 25.0 (21.0-32.0) mmol/L BUN 8 (7.0-18.0) mg/dL Creatinine 0.7 L (0.8-1.3) mg/dL Est Cr Clr Drug Dosing TNP Estimated GFR (MDRD) > 60.0 ml/min Glucose 78 (74-106) mg/dL Calcium 8.3 L (8.5-10.1) mg/dL Total Bilirubin 0.3 (0.2-1.0) mg/dL AST 24 (15-37) IU/L ALT 17 (14-63) IU/L Alkaline Phosphatase 66 (46-116) U/L Total Protein 6.3 L (6.4-8.2) g/dL Albumin 3.3 L (3.4-5.0) g/dL Globulin 3.0 (2.6-4.0) g/dL Albumin/Globulin Ratio 1.1 (0.9-1.6) Result Diagrams: 05/17/18 05:15 05/17/18 05:15 Problem List Initiated/Reviewed/Updated: Yes Orders Last 24hrs: Active Orders 24 hr Category Date Time Status Patient Status [ADT] Stat ADT 05/16/18 21:18 Active Oxygen Therapy [RC] PRN Care 05/16/18 22:46 Ordered VTE/DVT Education [RC] PER UNIT ROUTINE Care 05/16/18 22:46 Ordered Vital Signs [RC] Q4H Care 05/16/18 22:46 Ordered Consult to Hospice [CONS] Routine Cons 05/16/18 22:45 Ordered Regular Diet [DIET] Diet 05/16/18 Breakfast Ordered BASIC METABOLIC PANEL,BMP [CHEM] AM Lab 05/17/18 05:11 Ordered CBC WITH AUTO DIFF [HEME] AM Lab 05/17/18 05:11 Ordered Acetaminophen [Tylenol] Med 05/16/18 22:46 Ordered 650 mg PO Q4H PRN Ibuprofen [Motrin] Med 05/16/18 22:46 Ordered 200 mg PO Q6H PRN Morphine Med 05/16/18 22:46 Ordered 2 mg IVPUSH Q2H PRN Ondansetron [Zofran] Med 05/16/18 22:46 Ordered 4 mg IVPUSH Q4H PRN Pantoprazole [ProTONIX IV] Med 05/16/18 23:00 Ordered 40 mg IV Q24H oxyCODONE Med 05/16/18 22:46 Ordered 5 mg PO Q4H PRN Sequential Compression Device [OM.PC] Per Unit Routine Oth 05/16/18 22:46 Ordered Resuscitation Status Routine Resus Stat 05/16/18 22:46 Ordered Assessment/Plan Comment:: 57 yo male with stage 4 neck cancer who presents with failure to thrive. Patient 's main goals are palliative. We will consult hospice.
[2018-05-16] MEDS ORDERED: Pantoprazole 40 MG Vial IV SCH (23:00)
[2018-05-17 05:58] LABS: CHLORIDE,CL 100 mmol/L (98-107); SODIUM,NA 135 mmol/L (136-148)
[2018-05-17] MEDS ORDERED: LORazepam 1 MG Tab PO PRN (06:18)
--- NOTE | 2018-05-17 08:03 | PCM.PN ---
- General Info Date of Service: 05/17/18 Admission Dx/Problem (Free Text): Admission Diagnosis/Problem Admission Diagnosis/Problem Depression - Patient Data Vitals - Most Recent: Last Vital Signs Temp 98.6 F 05/17/18 04:00 Pulse 95 05/17/18 04:00 Resp 20 05/17/18 04:00 BP 141/94 H 05/17/18 04:00 Pulse Ox 97 05/17/18 04:00 Weight - Most Recent: 62.142 kg I&O - Last 24 Hours: Intake & Output 05/16/18 05/17/18 05/17/18 22:59 06:59 14:59 Intake Total 300 Output Total 850 Balance -550 Lab Results Last 24 Hours: Laboratory Results - last 24 hr 05/16/18 05/16/18 05/17/18 Range/Units 21:16 21:16 05:15 WBC 3.79 L 4.07 (4.0-11.0) K/uL RBC 4.27 L 4.04 L (4.50-5.90) M/uL Hgb 14.2 13.3 (13.0-17.0) g/dL Hct 38.2 36.2 L (38.0-50.0) % MCV 89.5 89.6 (80.0-98.0) fL MCH 33.3 H 32.9 H (27.0-32.0) pg MCHC 37.2 H 36.7 (31.0-37.0) g/dL RDW Std Deviation 48.2 49.0 (28.0-62.0) fl RDW Coeff of Adonay 15 15 (11.0-15.0) % Plt Count 263 281 (150-400) K/uL MPV 8.10 8.20 (7.40-12.00) fL Neut % (Auto) 64.4 68.0 (48.0-80.0) % Lymph % (Auto) 27.2 18.4 (16.0-40.0) % [place] % (Auto) 6.6 10.1 (0.0-15.0) % Eos % (Auto) 1.3 2.5 (0.0-7.0) % Baso % (Auto) 0.5 1.0 (0.0-1.5) % Neut # (Auto) 2.4 2.8 (1.4-5.7) K/uL Lymph # (Auto) 1.0 0.8 (0.6-2.4) K/uL [place] # (Auto) 0.3 0.4 (0.0-0.8) K/uL Eos # (Auto) 0.1 0.1 (0.0-0.7) K/uL Baso # (Auto) 0.0 0.0 (0.0-0.1) K/uL Nucleated RBC % 0.0 0.0 /100WBC Nucleated RBCs # 0 0 K/uL Sodium 129 L (136-148) mmol/L Potassium 4.4 (3.5-5.1) mmol/L Chloride 95 L (98-107) mmol/L Carbon Dioxide 25.0 (21.0-32.0) mmol/L BUN 8 (7.0-18.0) mg/dL Creatinine 0.7 L (0.8-1.3) mg/dL Est Cr Clr Drug Dosing TNP Estimated GFR (MDRD) > 60.0 ml/min Glucose 78 (74-106) mg/dL Calcium 8.3 L (8.5-10.1) mg/dL Total Bilirubin 0.3 (0.2-1.0) mg/dL AST 24 (15-37) IU/L ALT 17 (14-63) IU/L Alkaline Phosphatase 66 (46-116) U/L Total Protein 6.3 L (6.4-8.2) g/dL Albumin 3.3 L (3.4-5.0) g/dL Globulin 3.0 (2.6-4.0) g/dL Albumin/Globulin Ratio 1.1 (0.9-1.6) 05/17/18 Range/Units 05:15 WBC (4.0-11.0) K/uL RBC (4.50-5.90) M/uL Hgb (13.0-17.0) g/dL Hct (38.0-50.0) % MCV (80.0-98.0) fL MCH (27.0-32.0) pg MCHC (31.0-37.0) g/dL RDW Std Deviation (28.0-62.0) fl RDW Coeff of Adonay (11.0-15.0) % Plt Count (150-400) K/uL MPV (7.40-12.00) fL Neut % (Auto) (48.0-80.0) % Lymph % (Auto) (16.0-40.0) % [place] % (Auto) (0.0-15.0) % Eos % (Auto) (0.0-7.0) % Baso % (Auto) (0.0-1.5) % Neut # (Auto) (1.4-5.7) K/uL Lymph # (Auto) (0.6-2.4) K/uL [place] # (Auto) (0.0-0.8) K/uL Eos # (Auto) (0.0-0.7) K/uL Baso # (Auto) (0.0-0.1) K/uL Nucleated RBC % /100WBC Nucleated RBCs # K/uL Sodium 135 L (136-148) mmol/L Potassium 4.0 (3.5-5.1) mmol/L Chloride 100 (98-107) mmol/L Carbon Dioxide 21.5 (21.0-32.0) mmol/L BUN 8 (7.0-18.0) mg/dL Creatinine 0.8 (0.8-1.3) mg/dL Est Cr Clr Drug Dosing 91.70 Estimated GFR (MDRD) > 60.0 ml/min Glucose 68 L (74-106) mg/dL Calcium 8.6 (8.5-10.1) mg/dL Total Bilirubin (0.2-1.0) mg/dL AST (15-37) IU/L ALT (14-63) IU/L Alkaline Phosphatase (46-116) U/L Total Protein (6.4-8.2) g/dL Albumin (3.4-5.0) g/dL Globulin (2.6-4.0) g/dL Albumin/Globulin Ratio (0.9-1.6) Med Orders - Current: Current Medications Acetaminophen (Tylenol) 650 mg PO Q4H PRN PRN Reason: Pain (Mild 1-3)/fever Ibuprofen (Motrin) 200 mg PO Q6H PRN PRN Reason: Pain (mild 1-3) Lorazepam (Ativan) 1 mg PO Q6H PRN PRN Reason: Anxiety Morphine Sulfate (Morphine) 2 mg IVPUSH Q2H PRN PRN Reason: Pain (severe 7-10) Stop: 05/17/18 22:47 Ondansetron HCl (Zofran) 4 mg IVPUSH Q4H PRN PRN Reason: Nausea Oxycodone HCl (Oxycodone) 5 mg PO Q4H PRN PRN Reason: Pain (moderate 4-6) Last Admin: 05/17/18 00:05 Dose: 5 mg Pantoprazole Sodium (Protonix Iv) 40 mg IV Q24H NELIDA Last Admin: 05/17/18 00:05 Dose: 40 mg Discontinued Medications Fentanyl (Sublimaze) 50 mcg IVPUSH ONETIME ONE Stop: 05/16/18 20:41 Last Admin: 05/16/18 20:58 Dose: 50 mcg Sodium Chloride (Normal Saline) 1,000 mls @ 999 mls/hr IV STAT ONE Stop: 05/16/18 21:39 Last Admin: 05/16/18 20:58 Dose: 999 mls/hr - Plan Plan:: 57 yo male with stage 4 neck cancer who presents with failure to thrive. Patient 's main goals are palliative. We will consult hospice.
[2018-05-17 08:38] VITALS: BP 152/93
[2018-05-17] MEDS ORDERED: Pantoprazole 40 MG Vial IVPUSH SCH (09:15)
[2018-05-17] MEDS ORDERED: Calcium Carbonate 500 MG Tab.Chew PO PRN (09:21)
[2018-05-17] MEDS ORDERED: Aluminum Hydroxide/Magnesium Hydroxide/Simethicone Susp 30 ML Cup PO ONE (09:39)
--- NOTE | 2018-05-17 10:19 | PCM.DCSUM1 ---
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 Patient has a G-tube but has not been using it. He did drink two beers today. He has had a two prior admissions for suicidal ideation while intoxicated. 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 He reports he is homeless and can no longer take care of himself. Diagnosis: Stroke: No - Discharge Data Discharge Date: 05/17/18 Discharge Disposition: Home, Self-Care 01 Condition: Good - Discharge Diagnosis/Problem(s) (1) Cachexia SNOMED Code(s): 112202360 ICD Code: R64 - CACHEXIA Status: Acute Current Visit: Yes (2) Depression SNOMED Code(s): 81415698 ICD Code: F32.9 - MAJOR DEPRESSIVE DISORDER, SINGLE EPISODE, UNSPECIFIED Status: Acute Current Visit: Yes (3) Severe protein-calorie malnutrition SNOMED Code(s): 443040501 ICD Code: E43 - UNSPECIFIED SEVERE PROTEIN-CALORIE MALNUTRITION Status: Acute Current Visit: No (4) Squamous cell cancer of hypopharynx SNOMED Code(s): 19307861 ICD Code: C13.9 - MALIGNANT NEOPLASM OF HYPOPHARYNX, UNSPECIFIED Status: Chronic Current Visit: No - Patient Summary/Data Consults: Consultations 05/16/18 22:45 Consult to Hospice [CONS] Routine - Patient Instructions Diet: Usual Diet as Tolerated Activity: As Tolerated Showering/Bathing: May Shower Notify Provider of: Fever, Increased Pain, Swelling and Redness, Drainage, Nausea and/or Vomiting - Discharge Plan *PRESCRIPTION DRUG MONITORING PROGRAM REVIEWED*: Not Applicable *COPY OF PRESCRIPTION DRUG MONITORING REPORT IN PATIENT ALVIN: Not Applicable Home Medications: Home Meds . [Unable to Verify Home Med List] 05/16/18 [History] Patient Handouts: Major Depressive Disorder, Adult - Discharge Summary/Plan Comment DC Time >30 min.: No Discharge Summary/Plan Comment: Discharge Diagnoses: Stage 4 squamous cell carcinoma of hypopharynx Depression Protein malnutrition Hx alcohol abuse Hx tobacco abuse Nikolas was admitted with concerns of self care deficit and reports he has no place to live currently. He has been admitted previously when intoxicated with suicidal ideation, once he is sober he requests discharge home. This morning he was ready for Hospice consult, as long as they helped him get a place to live. We told him Hospice would only be a resource for end of life care and you can do Hospice at home or at a alf facility. On second rounds he is asking to go home, his girlfriend will come pick him up. His girlfriend arrived. Dr Martinez and myself talked with him regarding Hospice. Girlfriend was very much for this but Nikolas wanted to talk to her and her mom about it since they would be in the house when Hospice comes. He was given a pamphlet for Hospice with contact information. He is discharged home with continuation of home medications. He is to return to ED or clinic if concerns should arise. - General Info Date of Service: 05/17/18 Admission Dx/Problem (Free Text: Self care deficit Subjective Update: Reports some indigestion. NO chest pain or SOB. reports not wanting Oxycodone again, that made his panic overnight. On second rounds asking to go home with girlfriend. Functional Status: Reports: Pain Controlled, Tolerating Diet, Ambulating, Urinating - Review of Systems General: Reports: No Symptoms. Denies: Weakness, Fatigue Pulmonary: Reports: No Symptoms. Denies: Shortness of Breath Cardiovascular: Reports: No Symptoms. Denies: Chest Pain Gastrointestinal: Reports: Other (indigestion) Genitourinary: Reports: No Symptoms. Denies: Dysuria, Frequency, Burning Musculoskeletal: Reports: No Symptoms Skin: Reports: No Symptoms Neurological: Reports: No Symptoms Psychiatric: Reports: No Symptoms - Patient Data Vitals - Most Recent: Last Vital Signs Temp 97.8 F 05/17/18 08:00 Pulse 94 05/17/18 08:00 Resp 19 05/17/18 08:00 BP 152/93 H 05/17/18 08:00 Pulse Ox 97 05/17/18 08:00 Weight - Most Recent: 62.142 kg I&O - Last 24 hours: Intake & Output 05/16/18 05/17/18 05/17/18 22:59 06:59 14:59 Intake Total 300 Output Total 850 Balance -550 Lab Results - Last 24 hrs: Laboratory Results - last 24 hr 05/16/18 05/16/18 05/17/18 Range/Units 21:16 21:16 05:15 WBC 3.79 L 4.07 (4.0-11.0) K/uL RBC 4.27 L 4.04 L (4.50-5.90) M/uL Hgb 14.2 13.3 (13.0-17.0) g/dL Hct 38.2 36.2 L (38.0-50.0) % MCV 89.5 89.6 (80.0-98.0) fL MCH 33.3 H 32.9 H (27.0-32.0) pg MCHC 37.2 H 36.7 (31.0-37.0) g/dL RDW Std Deviation 48.2 49.0 (28.0-62.0) fl RDW Coeff of Adonay 15 15 (11.0-15.0) % Plt Count 263 281 (150-400) K/uL MPV 8.10 8.20 (7.40-12.00) fL Neut % (Auto) 64.4 68.0 (48.0-80.0) % Lymph % (Auto) 27.2 18.4 (16.0-40.0) % [place] % (Auto) 6.6 10.1 (0.0-15.0) % Eos % (Auto) 1.3 2.5 (0.0-7.0) % Baso % (Auto) 0.5 1.0 (0.0-1.5) % Neut # (Auto) 2.4 2.8 (1.4-5.7) K/uL Lymph # (Auto) 1.0 0.8 (0.6-2.4) K/uL [place] # (Auto) 0.3 0.4 (0.0-0.8) K/uL Eos # (Auto) 0.1 0.1 (0.0-0.7) K/uL Baso # (Auto) 0.0 0.0 (0.0-0.1) K/uL Nucleated RBC % 0.0 0.0 /100WBC Nucleated RBCs # 0 0 K/uL Sodium 129 L (136-148) mmol/L Potassium 4.4 (3.5-5.1) mmol/L Chloride 95 L (98-107) mmol/L Carbon Dioxide 25.0 (21.0-32.0) mmol/L BUN 8 (7.0-18.0) mg/dL Creatinine 0.7 L (0.8-1.3) mg/dL Est Cr Clr Drug Dosing TNP Estimated GFR (MDRD) > 60.0 ml/min Glucose 78 (74-106) mg/dL Calcium 8.3 L (8.5-10.1) mg/dL Total Bilirubin 0.3 (0.2-1.0) mg/dL AST 24 (15-37) IU/L ALT 17 (14-63) IU/L Alkaline Phosphatase 66 (46-116) U/L Total Protein 6.3 L (6.4-8.2) g/dL Albumin 3.3 L (3.4-5.0) g/dL Globulin 3.0 (2.6-4.0) g/dL Albumin/Globulin Ratio 1.1 (0.9-1.6) 05/17/18 Range/Units 05:15 WBC (4.0-11.0) K/uL RBC (4.50-5.90) M/uL Hgb (13.0-17.0) g/dL Hct (38.0-50.0) % MCV (80.0-98.0) fL MCH (27.0-32.0) pg MCHC (31.0-37.0) g/dL RDW Std Deviation (28.0-62.0) fl RDW Coeff of Adonay (11.0-15.0) % Plt Count (150-400) K/uL MPV (7.40-12.00) fL Neut % (Auto) (48.0-80.0) % Lymph % (Auto) (16.0-40.0) % [place] % (Auto) (0.0-15.0) % Eos % (Auto) (0.0-7.0) % Baso % (Auto) (0.0-1.5) % Neut # (Auto) (1.4-5.7) K/uL Lymph # (Auto) (0.6-2.4) K/uL [place] # (Auto) (0.0-0.8) K/uL Eos # (Auto) (0.0-0.7) K/uL Baso # (Auto) (0.0-0.1) K/uL Nucleated RBC % /100WBC Nucleated RBCs # K/uL Sodium 135 L (136-148) mmol/L Potassium 4.0 (3.5-5.1) mmol/L Chloride 100 (98-107) mmol/L Carbon Dioxide 21.5 (21.0-32.0) mmol/L BUN 8 (7.0-18.0) mg/dL Creatinine 0.8 (0.8-1.3) mg/dL Est Cr Clr Drug Dosing 91.70 Estimated GFR (MDRD) > 60.0 ml/min Glucose 68 L (74-106) mg/dL Calcium 8.6 (8.5-10.1) mg/dL Total Bilirubin (0.2-1.0) mg/dL AST (15-37) IU/L ALT (14-63) IU/L Alkaline Phosphatase (46-116) U/L Total Protein (6.4-8.2) g/dL Albumin (3.4-5.0) g/dL Globulin (2.6-4.0) g/dL Albumin/Globulin Ratio (0.9-1.6) Med Orders - Current: Current Medications Acetaminophen (Tylenol) 650 mg PO Q4H PRN PRN Reason: Pain (Mild 1-3)/fever Calcium Carbonate/Glycine (Tums) 1,000 mg PO Q2HR PRN PRN Reason: Indigestion Ibuprofen (Motrin) 200 mg PO Q6H PRN PRN Reason: Pain (mild 1-3) Lorazepam (Ativan) 1 mg PO Q6H PRN PRN Reason: Anxiety Morphine Sulfate (Morphine) 2 mg IVPUSH Q2H PRN PRN Reason: Pain (severe 7-10) Stop: 05/17/18 22:47 Last Admin: 05/17/18 08:58 Dose: 2 mg Ondansetron HCl (Zofran) 4 mg IVPUSH Q4H PRN PRN Reason: Nausea Pantoprazole Sodium (Protonix Iv) 40 mg IV Q24H [facility] Last Admin: 05/17/18 00:05 Dose: 40 mg Discontinued Medications Al Hydroxide/Mg Hydroxide (Mag-Al Plus) 30 ml PO ONETIME ONE Stop: 05/17/18 09:40 Last Admin: 05/17/18 10:12 Dose: Not Given Fentanyl (Sublimaze) 50 mcg IVPUSH ONETIME ONE Stop: 05/16/18 20:41 Last Admin: 05/16/18 20:58 Dose: 50 mcg Sodium Chloride (Normal Saline) 1,000 mls @ 999 mls/hr IV STAT ONE Stop: 05/16/18 21:39 Last Admin: 05/16/18 20:58 Dose: 999 mls/hr Oxycodone HCl (Oxycodone) 5 mg PO Q4H PRN PRN Reason: Pain (moderate 4-6) Last Admin: 05/17/18 00:05 Dose: 5 mg Pantoprazole Sodium (Protonix Iv) 40 mg IVPUSH Q24H NELIDA - Exam General: Reports: Alert, Oriented, Cooperative, No Acute Distress Lungs: Reports: Clear to Auscultation, Normal Respiratory Effort Cardiovascular: Reports: Regular Rate, Regular Rhythm GI/Abdominal Exam: Normal Bowel Sounds, Soft, Non-Tender Extremities: Normal Inspection, Normal Range of Motion, Non-Tender Neurological: Reports: No New Focal Deficit Psy/Mental Status: Reports: Alert, Normal Affect, Normal Mood
== END 2018-05-17 10:05 | disposition home or self-care (01) | DRG 947 ==
LOC: MW.ED 19:57 → MW.MS 21:18
PROVIDERS: ADMIT Internal Medicine; ATTEND Internal Medicine
DX: R64 Cachexia (principal); E43 Unspecified severe protein-calorie malnutrition; C13.9 Malignant neoplasm of hypopharynx, unspecified; F32.9 Major depressive disorder, single episode, unspecified; K21.9 Gastro-esophageal reflux disease without esophagitis; R52 Pain, unspecified; Z51.5 Encounter for palliative care
CPT/HCPCS: 36415; 80048; 80053; 85025; 96361; 96374; 99285-25; A9270-GY; C9113; J2270; J3010; J7040

== ENCOUNTER 2018-07-16 22:52 | Emergency (ER) | payer MEDICAID ==
[2018-07-16] MEDS ORDERED: Sodium Chloride 0.9% 2.5 ML Syringe FLUSH PRN ×2 (23:06→23:53)
[2018-07-16] MEDS ORDERED: Sodium Chloride 0.9% 10 ML Syringe FLUSH PRN ×2 (23:06→23:53)
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
[2018-07-16] MEDS ORDERED: Diphtheria,Pertussis(Acell),Tetanus Vaccine 0.5 ML Syringe IM ONE (23:12)
[2018-07-16 23:47] LABS: CHLORIDE,CL 87 mmol/L (98-107); SODIUM,NA 124 mmol/L (136-148)
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
[2018-07-16] MEDS ORDERED: Iopamidol 755 Mg/ML 100 ML Bottle IVPUSH ONE (23:50)
[2018-07-16] MEDS ORDERED: Sodium Chloride 0.9% 10 ML SDV IV PRN (23:53)
[2018-07-17] MEDS ORDERED: Bacitracin Oint 1 GM U/D Packet TOP ONE (00:22)
[2018-07-17] MEDS ORDERED: LORazepam 2 MG/ML SDV ONE (00:33)
[2018-07-17] MEDS ORDERED: Haloperidol Lactate 5 MG/ML SDV IM ONE (00:40)
[2018-07-17] MEDS ORDERED: LORazepam 2 MG/ML SDV IM ONE (00:40)
[2018-07-17] MEDS ORDERED: diphenhydrAMINE 50 MG/ML SDV IVPUSH ONE (00:40)
[2018-07-17] MEDS ORDERED: Sodium Chloride 0.9% 1,000 ML IV STA (00:41)
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
[2018-07-17] MEDS ORDERED: EPINEPHrine 1:10,000 1 MG/10 ML Syringe IVPUSH ONE ×2 (02:06→02:09)
[2018-07-17] MEDS ORDERED: Atropine 0.1 MG/ML 10 ML Syringe IVPUSH ONE (02:13)
[2018-07-17 04:06] VITALS: BP 136/81
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
== END 2018-07-17 05:15 | disposition expired ==
LOC: MW.ED 22:52 → UNDOADMOB 07-17 00:55 → MW.MS 07-17 00:55 → MW.ED 07-17 05:15
DX: I46.2 Cardiac arrest due to underlying cardiac condition (principal); R00.1 Bradycardia, unspecified; F10.129 Alcohol abuse with intoxication, unspecified; I10 Essential (primary) hypertension; Z23 Encounter for immunization; Z91.048 Other nonmedicinal substance allergy status
CPT/HCPCS: 36415; 70450; 71260; 72125; 74177; 80053; 80305; 81003; 84484; 85025; 85610; 90471; 90715; 92950; 93005; 96361; 96372; 96374; 99285; G0480; J0171; J0461; J1200; J1630; J2060; J7040; Q9967